=== PATIENT | female | born 1990 | race Caucasian/White ===

== ENCOUNTER → 2016-04-16 | Outpatient (CLI) | payer BC, OTHER ==
[2016-04-17 14:26] LABS: HIV SCRN NEGATIVE (NEGATIVE)
[2016-04-17 14:27] LABS: CONTROL LINE INT CTR LINE PRESENT; HIV SCRN1 NEGATIVE (NEGATIVE)
[2016-04-18 11:37] LABS: HBsAg Prenatal NEGATIVE (NEGATIVE)
== END ==
LOC: M WUC 16:08
PROVIDERS: ATTEND Specialist
DX: Z34.81 Encounter for supervision of other normal pregnancy, first trimester (principal)

== ENCOUNTER → 2016-04-17 | Outpatient (REF) | payer OTHER, BC ==
[2016-04-17 20:59] LABS: BASO % 0.3 % (0.0-1.0); EOS % 0.4 % (0.0-3.0); LARGE UNSTAINED CELL # 0.2 K/mm3 (0.0-0.4); LARGE UNSTAINED CELL % 1.6 % (0.0-4.0); LYMPH % 28.1 % (24.0-44.0); MEAN CORPUSCULAR HEMOGLOBIN 26.9 pg (27.0-33.0); MEAN CORPUSCULAR HGB CONC 32.1 g/dl (32.0-36.5); MEAN CORPUSCULAR VOLUME 83.7 fl (80.0-96.0); MONO # 0.5 K/mm3 (0.0-0.8); MONO % 4.9 % (0.0-5.0); NEUTROPHILS # 6.5 K/mm3 (1.8-7.7); NEUTROPHILS % 64.7 % (36.0-66.0); PLATELET COUNT, AUTOMATED 289 k/mm3 (150-450)
== END ==
LOC: M LABDRWAD 20:20 → M LABWUC 20:20
PROVIDERS: ATTEND Specialist
DX: Z34.81 Encounter for supervision of other normal pregnancy, first trimester (principal)

== ENCOUNTER → 2016-09-06 | Outpatient (CLI) | payer BC, OTHER ==
[~2016-09-06] MED LIST: ACET50TA PO; EFFE150C PO; FIOR1CAP PO; IBUP-1114 PO; LABE30TA PO; OXYC1TAB23 PO; PRENTAB9 PO; PROC10CA PO
[2016-09-06 18:59] LABS: BASO % 0.2 % (0.0-1.0); EOS % 0.4 % (0.0-3.0); LARGE UNSTAINED CELL # 0.1 K/mm3 (0.0-0.4); LARGE UNSTAINED CELL % 1.1 % (0.0-4.0); LYMPH # 2.1 K/mm3 (1.5-6.5); LYMPH % 18.3 % (24.0-44.0); MEAN CORPUSCULAR HEMOGLOBIN 26.1 pg (27.0-33.0); MEAN CORPUSCULAR HGB CONC 32.3 g/dl (32.0-36.5); MONO # 0.5 K/mm3 (0.0-0.8); MONO % 4.8 % (0.0-5.0); NEUTROPHILS # 8.1 K/mm3 (1.8-7.7); NEUTROPHILS % 75.3 % (36.0-66.0); PLATELET COUNT, AUTOMATED 321 k/mm3 (150-450); WHITE BLOOD COUNT 10.8 K/mm3 (4.0-10.0)
== END ==
LOC: M SMT 13:54
PROVIDERS: ATTEND Specialist
DX: Z34.82 Encounter for supervision of other normal pregnancy, second trimester (principal); Z36 Encounter for antenatal screening of mother; Z3A.00 Weeks of gestation of pregnancy not specified
CPT/HCPCS: 36415; 82950; 85025; 86850; 86900; 86901; J2790

== ENCOUNTER → 2016-11-16 | Outpatient (REF) | payer BC, OTHER | LOC: M LAB REF 13:15 | PROVIDERS: ATTEND Specialist | DX: Z34.83 Encounter for supervision of other normal pregnancy, third trimester (principal); Z36 Encounter for antenatal screening of mother; Z3A.00 Weeks of gestation of pregnancy not specified ==

== ENCOUNTER → 2016-11-29 | Outpatient (CLI) | payer BC, OTHER ==
[2016-11-29 19:36] LABS: ALT/SGPT 15 U/L (12-78); AST/SGOT 16 U/L (15-37); BILIRUBIN,TOTAL 0.2 MG/DL (0.2-1.0); GLOMERULAR FILTRATION RATE > 60.0 (>60); URIC ACID 4.7 MG/DL (2.6-6.0)
[2016-11-29 19:38] LABS: MEAN CORPUSCULAR HEMOGLOBIN 25.2 pg (27.0-33.0); MEAN CORPUSCULAR HGB CONC 30.7 g/dl (32.0-36.5); MEAN CORPUSCULAR VOLUME 82.1 fl (80.0-96.0); RED CELL DISTRIBUTION WIDTH 19.3 % (11.5-14.5); WHITE BLOOD COUNT 9.5 10^3/uL (4.0-10.0)
== END ==
LOC: M SMT 14:37
PROVIDERS: ATTEND Advanced Practice Midwife
DX: O16.3 Unspecified maternal hypertension, third trimester (principal)

== ENCOUNTER 2016-11-30 10:25 | Inpatient (IN) | payer BC, OTHER ==
[2016-11-30] VITALS (31 sets, daily range): BP systolic 126–218; BP diastolic 61–109
[~2016-11-30] VITALS: Ht 160 cm; Wt 104.0 kg
[~2016-11-30 10:25] MED LIST changes: -ACET50TA PO; -EFFE150C PO; -FIOR1CAP PO; -IBUP-1114 PO; -LABE30TA PO; -OXYC1TAB23 PO; -PRENTAB9 PO; -PROC10CA PO; +VENLAFAXINE **XR** 75MG CAPSULE PO ONE
[2016-11-30 11:23] LABS: MEAN CORPUSCULAR HGB CONC 32.1 g/dl (32.0-36.5); MEAN CORPUSCULAR VOLUME 80.8 fl (80.0-96.0); WHITE BLOOD COUNT 8.6 10^3/uL (4.0-10.0)
[2016-11-30] MEDS: miSOPROStol 50 MCG 1/2 TAB (S0191) PO SCH ×2 (11:45→15:59)
--- NOTE | 2016-11-30 12:45 | HPE ---
DATE OF ADMISSION: 11/30/2016 25-year-old, (G) 1, para (P) 0 female at 38 and 0/7 weeks gestation by a 9 week ultrasound and expected date of confinement (EDC) of 12/14/2016, who presents from the office with a blood pressure of 172/88 today. She has mild blurry vision and headaches. She also has worsening swelling in her lower extremities, hands and face. She denies severe headaches however. COURSE: The patient initiated care at 9 weeks gestation, 05/14/2016. She had a first trimester blood pressure of 118/68. Weight was 174 pounds. course was unremarkable until the day prior to admission on 11/29/2016 when she had blood pressure of 144/88 and 3+ proteinuria. She was sent for labs and urine protein/creatinine (P/C) ratio. MEDICAL HISTORY: Abnormal Pap smears. SURGICAL HISTORY: Rhinoplasty. ALLERGIES: - SULFA - PENICILLIN SOCIAL HISTORY: The patient is . She denies cigarettes, alcohol or drug use. FAMILY HISTORY: Noncontributory. PHYSICAL EXAMINATION: Blood pressure 180/109. Pulse 104. She is afebrile. She is in no apparent distress. Head and Neck Exam: Normal. Lungs: Clear. Heart: Regular rate and rhythm. Abdomen: Nontender. Gravid. heart tones are Category 1. Contractions irregular. Sterile Vaginal Exam: 2 cm, 50% effaced, -2 station, vertex. Extremities: 2+ lower extremity edema. LABS: Blood type A negative rubella immune. RPR nonreactive. Hepatitis B and C negative. HIV negative. Diabetes screen 127. GBS negative on 11/16/2016. ASSESSMENT: 25-year-old, G1, P0, female at 38 and 0/7 weeks gestation with preeclampsia with severe features. PLAN: To admit for labor induction. Will initiate magnesium sulfate treatment during labor.
[2016-11-30] MEDS ORDERED: MAG Sulf (L&D) 4 GM/100 ML 4 GM in APPROPRIATE DILUENT 1 EA IV ONE (15:15)
[2016-11-30] MEDS ORDERED: LR 1,000 ML IV SCH (16:48)
[2016-11-30] MEDS: MAG Sulf (OBGYN) 20GM/500ML 20,000 MG in APPROPRIATE DILUENT 1 EA IV SCH (18:14)
[2016-11-30] MEDS ORDERED: OXYTOCIN DRIP 30 UNITS in APPROPRIATE DILUENT 1 EA IV SCH (20:30)
[2016-11-30] MEDS: ACETAMINOPHEN 500 MG TAB PO PRN (22:35)
[2016-12-01] VITALS (79 sets, daily range): BP systolic 102–180; BP diastolic 36–98
[2016-12-01] MEDS ORDERED: VENLAFAXINE **XR** 75MG CAPSULE PO ONE
[2016-12-01] MEDS: MAG Sulf (OBGYN) 20GM/500ML 20,000 MG in APPROPRIATE DILUENT 1 EA IV SCH ×2 (01:40→19:02)
[2016-12-01 04:41] LABS: MEAN CORPUSCULAR HEMOGLOBIN 25.2 pg (27.0-33.0); MEAN CORPUSCULAR HGB CONC 30.8 g/dl (32.0-36.5); MEAN CORPUSCULAR VOLUME 81.9 fl (80.0-96.0); RED CELL DISTRIBUTION WIDTH 19.2 % (11.5-14.5); WHITE BLOOD COUNT 10.7 10^3/uL (4.0-10.0)
[2016-12-01] MEDS ORDERED: FENTANYL 2MCG/ML ROPIVACAINE 0.2% IN 0.9% NACL 200ML IVBAG As Ordered ONE (04:55)
[2016-12-01] MEDS ORDERED: ePHEDrine SULFATE 25 MG/5 ML(5MG/ML) SYRINGE As Ordered ONE (05:41)
[2016-12-01] MEDS ORDERED: ePHEDrine SULFATE 25 MG/5 ML(5MG/ML) SYRINGE IV PRN (08:00)
[2016-12-01] MEDS ORDERED: diphenhydrAMINE INJ 50MG/ML VIAL (J1200) IV PRN (08:00)
[2016-12-01] MEDS ORDERED: NALOXONE INJ 0.4 MG/1 ML VIAL (J2310) IV PRN ×3 (08:00→15:00)
[2016-12-01] MEDS ORDERED: EPIDURAL/PCA KEYS XX PRN (08:00)
[2016-12-01] MEDS ORDERED: LACTATED RINGER'S 1000 ML IV PRN (08:00)
[2016-12-01] MEDS ORDERED: ONDANSETRON 4MG/2ML VIAL (J2405) IV PRN ×4 (08:00→16:00)
[2016-12-01] MEDS ORDERED: FENTANYL/ROPIVACAINE/NACL BAG 200 ML EPIDURAL SCH (08:00)
[2016-12-01] MEDS ORDERED: EPIDURAL COMMENT XX SCH (08:00)
[2016-12-01] MEDS ORDERED: REFRIGERATOR IV KEYS XX PRN (08:00)
[2016-12-01] MEDS ORDERED: CALCIUM CARBONATE 500 MG CHEW U/D PO PRN (10:00)
[2016-12-01] MEDS: ACETAMINOPHEN 500 MG TAB PO PRN (11:17)
[2016-12-01] MEDS ORDERED: BICITRA 30ML SOLN UDC As Ordered ONE (13:28)
[2016-12-01] MEDS ORDERED: ceFAZolin 2 GM/D5W 50 ML IV BAG (J0690) As Ordered ONE (13:28)
[2016-12-01] MEDS ORDERED: OXYTOCIN INJ 10 UNITS/ML VIAL (J2590) As Ordered ONE (13:30)
[2016-12-01] MEDS ORDERED: LIDOCAINE 2% W/EPIN INJ 20ML **PRES FREE As Ordered ONE (13:32)
[2016-12-01] MEDS ORDERED: BICITRA 30ML SOLN UDC PO ONE (13:45)
[2016-12-01] MEDS ORDERED: MORPHINE PRES-FREE INJ 10 MG/10 ML VIAL (J2274) As Ordered ONE (14:43)
[2016-12-01] MEDS ORDERED: METOCLOPRAMIDE INJ 10MG/2ML VIAL (J2765) IV PRN (15:00)
[2016-12-01] MEDS ORDERED: DOCUSATE SODIUM 100 MG CAP PO PRN (15:30)
[2016-12-01] MEDS ORDERED: PERCOCET 5MG/325MG TAB PO PRN (15:30)
[2016-12-01] MEDS ORDERED: OXYTOCIN DRIP 30 UNITS in APPROPRIATE DILUENT 1 EA IV ONE (15:30)
[2016-12-01] MEDS ORDERED: RHOGAM 300 MCG (1500 IU) INJ (J2790) IM SCH (15:30)
[2016-12-01] MEDS ORDERED: MEASLES,MUMPS,RUBELLA VACCINE INJ (MMR-II) (90707) SC SCH (15:30)
[2016-12-01] MEDS ORDERED: KETOROLAC 30 MG/ML VIAL (J1885) IV PRN (16:00)
[2016-12-01] MEDS ORDERED: NALBUPHINE HCL 10 MG/ML AMP (J2300) IV PRN (16:00)
[2016-12-01] MEDS ORDERED: fentaNYL 100 MCG/2 ML INJECTION (J3010) IV PRN (16:00)
[2016-12-01] MEDS ORDERED: MEPERIDINE INJ 25 MG/ML VIAL (J2175) IV PRN (16:00)
[2016-12-01] MEDS ORDERED: PERCOCET 5MG/325MG TAB As Ordered ONE (16:25)
[2016-12-01] MEDS: PERCOCET 5MG/325MG TAB PO PRN (16:25)
[2016-12-01] MEDS ORDERED: LABETALOL HCL 100 MG/20 ML VIAL IV STA (18:01)
[2016-12-01] MEDS: LR 1,000 ML IV SCH (19:03)
[2016-12-01] MEDS: NALBUPHINE HCL 10 MG/ML AMP (J2300) IV PRN ×2 (20:02→23:35)
[2016-12-01] MEDS: KETOROLAC 30 MG/ML VIAL (J1885) IV SCH (22:28)
[2016-12-02] VITALS (16 sets, daily range): BP systolic 126–175; BP diastolic 72–101
[2016-12-02] MEDS: KETOROLAC 30 MG/ML VIAL (J1885) IV SCH ×3 (03:53→15:09)
[2016-12-02] MEDS: NALBUPHINE HCL 10 MG/ML AMP (J2300) IV PRN (03:53)
[2016-12-02] MEDS: MAG Sulf (OBGYN) 20GM/500ML 20,000 MG in APPROPRIATE DILUENT 1 EA IV SCH ×2 (03:55→13:56)
[2016-12-02] MEDS: LR 1,000 ML IV SCH (04:08)
[2016-12-02 06:54] LABS: MEAN CORPUSCULAR HGB CONC 31.6 g/dl (32.0-36.5); MEAN CORPUSCULAR VOLUME 82.2 fl (80.0-96.0); RED CELL DISTRIBUTION WIDTH 19.7 % (11.5-14.5); WHITE BLOOD COUNT 10.6 10^3/uL (4.0-10.0)
[2016-12-02] MEDS: LABETALOL 200 MG TAB PO SCH ×2 (09:00→21:11)
[2016-12-02] MEDS: PERCOCET 5MG/325MG TAB PO PRN (09:02)
[2016-12-02] MEDS: PRENATAL VITAMINS CHEWABLE TABLET PO SCH (09:02)
[2016-12-02] MEDS: VENLAFAXINE **XR** 75MG CAPSULE PO SCH (09:02)
--- NOTE | 2016-12-02 11:52 | RO ---
DATE OF PROCEDURE: 11/30/2016 PREPROCEDURE DIAGNOSES: Term , preeclampsia, arrest of descent. POSTPROCEDURE DIAGNOSES: Term , preeclampsia, arrest of descent. PROCEDURE: Primary low transverse section. SURGEON: Justin Obando MD PAYABLE REPRESENTATIVE: Sybil Kaur MD ANESTHESIA: Epidural. ESTIMATED BLOOD LOSS: 500 mL. URINE OUTPUT: 100 mL. FINDINGS: 3280 gram or 7 pound 4 ounce female , scores 8 and 9, direct occiput posterior position. Normal uterus, fallopian tubes and ovaries. OPERATIVE SUMMARY: The patient was taken to the operating room where epidural anesthesia was adequate. She was prepped and draped in the sterile fashion in the supine fashion. A Delgadillo catheter was already in place. A Pfannenstiel skin incision was made with the scalpel and carried through to the fascia. The fascia was nicked and extended. The fascia was dissected off the rectus muscles. The peritoneal cavity was entered. The bladder flap was created. A curvilinear incision was made in the lower uterine segment until lightly meconium stained fluid was noted. This was extended manually. The infant was delivered from the vertex position without difficulty. The cord was doubly clamped and cut. The was handed off to the awaiting airport maintenance chief. The placenta was expressed. The uterus was exteriorized and cleared of clots and debris. Uterine incision was closed with #0 Vicryl in a running locked fashion. A second imbricating layer of #0 Vicryl was placed. The uterus was placed back in the abdominal cavity. The peritoneum was closed with #2-0 Vicryl in a running fashion. The fascia was closed with #0 Vicryl in a running fashion. The deep layer was irrigated and closed with #2-0 chromic. Skin was closed with #4-0 Monocryl subcuticular sutures. Sponge, instrument and needle counts were correct.
[2016-12-02] MEDS: ACETAMINOPHEN 500 MG TAB PO PRN (17:40)
[2016-12-02] MEDS ORDERED: IBUPROFEN 800 MG TAB PO SCH (18:00)
[2016-12-02] MEDS ORDERED: OXYC1TAB23 PO (22:49)
[2016-12-03] VITALS (7 sets, daily range): BP systolic 136–172; BP diastolic 78–87
[2016-12-03] MEDS: IBUPROFEN 800 MG TAB PO SCH ×4 (01:07→23:13)
[2016-12-03] MEDS: PERCOCET 5MG/325MG TAB PO PRN (01:17)
[2016-12-03] MEDS: PRENATAL VITAMINS CHEWABLE TABLET PO SCH (09:17)
[2016-12-03] MEDS: LABETALOL 200 MG TAB PO SCH ×2 (09:18→20:12)
[2016-12-03] MEDS: VENLAFAXINE **XR** 75MG CAPSULE PO SCH (09:19)
[2016-12-04] VITALS (21 sets, daily range): BP systolic 130–198; BP diastolic 66–140
[2016-12-04] MEDS ORDERED: LABETALOL 100 MG TAB PO ONE (03:30)
[2016-12-04] MEDS ORDERED: NIFEdipine 10 MG CAP PO SCH (06:00)
[2016-12-04] MEDS: IBUPROFEN 800 MG TAB PO SCH ×2 (07:50→15:59)
[2016-12-04] MEDS: PRENATAL VITAMINS CHEWABLE TABLET PO SCH (07:52)
[2016-12-04] MEDS: VENLAFAXINE **XR** 75MG CAPSULE PO SCH (08:51)
[2016-12-04] MEDS: LABETALOL 200 MG TAB PO SCH (08:53)
[2016-12-04] MEDS: ACETAMINOPHEN 500 MG TAB PO PRN ×2 (09:13→21:02)
[2016-12-04] MEDS: NIFEdipine 10 MG CAP PO SCH ×2 (10:27→18:24)
[2016-12-04] MEDS ORDERED: hydrALAZINE INJ 20 MG/ML VIAL IV ONE (20:00)
[2016-12-04] MEDS: LABETALOL 100 MG TAB PO SCH (20:08)
[2016-12-05] MEDS: IBUPROFEN 800 MG TAB PO SCH ×2 (00:42→08:07)
[2016-12-05 02:35] VITALS: BP 145/80
[2016-12-05] MEDS: NIFEdipine 10 MG CAP PO SCH ×2 (02:38→10:04)
[2016-12-05 06:00] VITALS: BP 136/84
[2016-12-05 08:00] VITALS: BP 166/92
[2016-12-05] MEDS: VENLAFAXINE **XR** 75MG CAPSULE PO SCH (08:06)
[2016-12-05] MEDS: LABETALOL 100 MG TAB PO SCH (08:06)
[2016-12-05] MEDS: PRENATAL VITAMINS CHEWABLE TABLET PO SCH (08:06)
[2016-12-05 09:07] VITALS: BP 156/90
[2016-12-05] MEDS ORDERED: EFFE150C PO (09:35)
[2016-12-05] MEDS ORDERED: IBUP-1114 PO (09:35)
[2016-12-05] MEDS ORDERED: PROC10CA PO (09:35)
[2016-12-05] MEDS ORDERED: PRENTAB9 PO (09:35)
[2016-12-05] MEDS ORDERED: LABE30TA PO (09:36)
[2016-12-05] MEDS ORDERED: ACET50TA PO (09:36)
[2016-12-05 10:04] VITALS: BP 156/90
[2016-12-05] MEDS: ACETAMINOPHEN 500 MG TAB PO PRN (10:09)
[2016-12-05 10:23] VITALS: BP 159/96
== END 2016-12-05 11:50 | disposition home or self-care (01) | DRG 540 ==
LOC: M LDO 10:25 → M LDI 10:42 → M OBS 12-01 16:58
PROVIDERS: ADMIT Obstetrics & Gynecology; ATTEND Specialist
PROC: 10D00Z1 Extraction of Products of Conception, Low, Open Approach (ICD-10-PCS; principal; 2016-11-30)
PROC: 3E0P7GC Introduction of Other Therapeutic Substance into Female Reproductive, Via Natural or Artificial Opening (ICD-10-PCS; 2016-11-30)
DX: O14.14 Severe pre-eclampsia complicating childbirth (principal); O32.4XX0 Maternal care for high head at term, not applicable or unspecified; Z3A.38 38 weeks gestation of pregnancy; Z37.0 Single live birth

== ENCOUNTER 2016-12-07 15:07 | Outpatient (CLI) | payer BC, OTHER ==
[~2016-12-07] VITALS: Ht 162.6 cm; Wt 90.4 kg
[2016-12-07] VITALS (14 sets, daily range): BP systolic 125–145; BP diastolic 70–87
[~2016-12-07 15:07] MED LIST changes: +ACET50TA PO; +EFFE150C PO; +IBUP-1114 PO; +LABE30TA PO; +OXYC1TAB23 PO; +PRENTAB9 PO; +PROC10CA PO; -VENLAFAXINE **XR** 75MG CAPSULE PO ONE
[2016-12-07] MEDS ORDERED: IBUPROFEN 800 MG TAB PO SCH (16:15)
[2016-12-07] MEDS ORDERED: NIFEdipine 10 MG CAP PO SCH (16:15)
[2016-12-07 16:44] LABS: ALBUMIN 2.4 GM/DL (3.2-5.2); ALBUMIN/GLOBULIN RATIO 0.63 (1.00-1.93); ALKALINE PHOSPHATASE 117 U/L (45-117); ALT/SGPT 38 U/L (12-78); ANION GAP 6 MEQ/L (8-16); AST/SGOT 33 U/L (15-37); BILIRUBIN,TOTAL 0.3 MG/DL (0.2-1.0); BLOOD UREA NITROGEN 16 MG/DL (7-18); CALCIUM LEVEL 8.6 MG/DL (8.5-10.1); CARBON DIOXIDE LEVEL 27 MEQ/L (21-32); CHLORIDE LEVEL 107 MEQ/L (98-107); CREATININE FOR GFR 0.59 MG/DL (0.55-1.02); GLOMERULAR FILTRATION RATE > 60.0 (>60); GLUCOSE, FASTING 106 MG/DL (70-105); SODIUM LEVEL 140 MEQ/L (136-145); TOTAL PROTEIN 6.2 GM/DL (6.4-8.2); URIC ACID 5.6 MG/DL (2.6-6.0)
[2016-12-07 16:57] LABS: MEAN CORPUSCULAR HEMOGLOBIN 25.5 pg (27.0-33.0); MEAN CORPUSCULAR HGB CONC 30.8 g/dl (32.0-36.5); MEAN CORPUSCULAR VOLUME 82.8 fl (80.0-96.0); RED CELL DISTRIBUTION WIDTH 18.8 % (11.5-14.5); WHITE BLOOD COUNT 11.5 10^3/uL (4.0-10.0)
[2016-12-07] MEDS ORDERED: FIOR1CAP PO (20:29)
== END 2016-12-07 19:40 ==
LOC: M LDI 15:07 → UNDOADMIN 15:07 → M LDO 15:07 → UNDODISIN 19:40 → PREINTOOBSV 19:56 → PREOBSVTOIN 19:57
PROVIDERS: ATTEND Obstetrics & Gynecology
DX: O14.95 Unspecified pre-eclampsia, complicating the puerperium (principal); Z98.890 Other specified postprocedural states; Z88.0 Allergy status to penicillin; Z88.2 Allergy status to sulfonamides
CPT/HCPCS: 36415; 80053; 80307; 82570; 83615; 84156; 84550; 85027; G0480

== ENCOUNTER → 2017-04-17 | Outpatient (REF) | payer OTHER | LOC: M LAB REF 13:10 | DX: N39.0 Urinary tract infection, site not specified (principal) ==

== ENCOUNTER → 2017-04-25 | Outpatient (REF) | payer OTHER ==
[2017-04-25 20:15] LABS: CHLAMYDIA DNA AMPLIFICATION NEGATIVE (NEGATIVE); GC DNA AMPLIFICATION NEGATIVE (NEGATIVE)
== END ==
LOC: M LAB REF 16:56
DX: R87.610 Atypical squamous cells of undetermined significance on cytologic smear of cervix (ASC-US) (principal)
CPT/HCPCS: 87591

== ENCOUNTER → 2017-06-28 | Outpatient (REF) | payer OTHER | LOC: M LAB REF 15:58 | DX: R53.83 Other fatigue (principal); E55.9 Vitamin D deficiency, unspecified ==

== ENCOUNTER → 2017-10-26 | Outpatient (CLI) | payer BC, OTHER ==
[2017-10-29 10:16] LABS: TOTAL 25(OH) VITAMIN D 62.8 NG/ML (30.0-100.0)
== END ==
LOC: M WUC 12:15
DX: E55.9 Vitamin D deficiency, unspecified (principal)

== ENCOUNTER → 2018-02-03 | Outpatient (REF) | payer OTHER | LOC: M LAB REF 13:03 | DX: Z12.4 Encounter for screening for malignant neoplasm of cervix (principal) ==

== ENCOUNTER → 2018-07-09 | Outpatient (CLI) | payer BC, OTHER ==
[~2018-07-09] MED LIST changes: -ACET50TA PO; -EFFE150C PO; +EFFE150C2 PO; +FIOR1CAP PO; +LABE300T2 PO; -LABE30TA PO; +MAPA500T2 PO
--- NOTE | 2018-07-10 02:59 | REP ---
Clinical: Coccyx pain. Technique: Three views of the sacrum and coccyx. Findings: Sacrum and coccyx appear intact and relatively normal. No obvious acute fracture or subluxation. Impression: No obvious acute injury. Electronically Signed by Lc Weber MD 07/10/2018 02:51 A
== END ==
LOC: M WUC 16:41
PROVIDERS: ATTEND Family Medicine
DX: M53.3 Sacrococcygeal disorders, not elsewhere classified (principal)

== ENCOUNTER → 2018-11-19 | Outpatient (CLI) | payer OTHER, BC ==
[2018-11-19 13:40] LABS: URINE PREG TEST NEGATIVE (NEGATIVE)
== END ==
LOC: M WUC 09:35
PROVIDERS: ATTEND Physician Assistant Medical
DX: E55.9 Vitamin D deficiency, unspecified (principal); N91.2 Amenorrhea, unspecified

== ENCOUNTER → 2018-12-05 | Outpatient (CLI) | payer OTHER, BC ==
[2018-12-05 11:56] LABS: BASO % 0.3 % (0.0-1.0); HEMATOCRIT 41.6 % (36.0-47.0); HEMOGLOBIN 13.2 g/dl (12.0-15.5); LYMPH # 1.9 10^3/uL (1.5-5.0); MEAN CORPUSCULAR HEMOGLOBIN 27.4 pg (27.0-33.0); MEAN CORPUSCULAR HGB CONC 31.7 g/dl (32.0-36.5); MEAN CORPUSCULAR VOLUME 86.5 fl (80.0-96.0); MONO # 0.5 10^3/uL (0.0-0.8); MONO % 7.6 % (0.0-5.0); NEUTROPHILS # 3.7 10^3/uL (1.5-8.5); NEUTROPHILS % 60.8 % (36.0-66.0); PLATELET COUNT, AUTOMATED 260 10^3/uL (150-450); RED BLOOD COUNT 4.81 10^6/uL (4.00-5.40); WHITE BLOOD COUNT 6.1 10^3/uL (4.0-10.0)
[2018-12-05 12:29] LABS: HEMOGLOBIN A1c 4.9 %
[2018-12-05 12:34] LABS: ALBUMIN 3.9 GM/DL (3.2-5.2); ALT/SGPT 44 U/L (12-78); BILIRUBIN,TOTAL 0.7 MG/DL (0.2-1.0); BLOOD UREA NITROGEN 14 MG/DL (7-18); CALCIUM LEVEL 9.2 MG/DL (8.5-10.1); CARBON DIOXIDE LEVEL 30 MEQ/L (21-32); CHLORIDE LEVEL 106 MEQ/L (98-107); CREATININE FOR GFR 0.63 MG/DL (0.55-1.30); FREE T4 0.79 NG/DL (0.76-1.46); GLOMERULAR FILTRATION RATE > 60.0 (>60); GLUCOSE, FASTING 98 MG/DL (70-100); POTASSIUM SERUM 5.1 MEQ/L (3.5-5.1); SODIUM LEVEL 140 MEQ/L (136-145); TOTAL PROTEIN 7.6 GM/DL (6.4-8.2)
== END ==
LOC: M WUC 09:03
PROVIDERS: ATTEND Physician Assistant
DX: Z13.29 Encounter for screening for other suspected endocrine disorder (principal)

== ENCOUNTER → 2019-05-27 | Outpatient (REF) | payer OTHER ==
[2019-05-27 13:24] LABS: HEMATOCRIT 41.9 % (36.0-47.0); HEMOGLOBIN 13.3 g/dl (12.0-15.5); MEAN CORPUSCULAR HGB CONC 31.7 g/dl (32.0-36.5); MEAN CORPUSCULAR VOLUME 85.2 fl (80.0-96.0); PLATELET COUNT, AUTOMATED 323 10^3/uL (150-450); RED BLOOD COUNT 4.92 10^6/uL (4.00-5.40)
[2019-05-27 14:20] LABS: HEPATITIS B SURFACE ANTIGEN NEGATIVE (NEGATIVE); HEPATITIS C VIRUS ABY INDEX 0.1 INDEX (<0.8); HIV 1&2 SCREEN CENTAUR NEGATIVE (NEGATIVE); RUBELLA IgG QUALITATIVE IMMUNE (IMMUNE)
[2019-05-27 15:10] LABS: CHLAMYDIA DNA AMPLIFICATION NEGATIVE (NEGATIVE); GC DNA AMPLIFICATION NEGATIVE (NEGATIVE)
== END ==
LOC: M PLALAB 11:36
PROVIDERS: ATTEND Specialist
DX: Z00.00 Encounter for general adult medical examination without abnormal findings (principal)

== ENCOUNTER → 2019-06-03 | Outpatient (REF) | payer OTHER | LOC: M SFHCWAGY 18:45 | PROVIDERS: ATTEND Specialist | DX: O03.30 Unspecified complication following incomplete spontaneous abortion (principal) ==

== ENCOUNTER → 2019-06-03 | Outpatient (REF) | payer OTHER | LOC: M PLALAB 11:17 | PROVIDERS: ATTEND Specialist | DX: Z34.01 Encounter for supervision of normal first pregnancy, first trimester (principal) | CPT/HCPCS: 36415; 86850; J2790 ==

== ENCOUNTER → 2019-08-14 | Outpatient (CLI) | payer OTHER ==
[~2019-08-14] MED LIST changes: +ASPI81TA26 PO; +BUTACAP78 PO; +COEN100T PO; +D31000TA2 PO; +GNP250TA9 PO; +NITR1CAP27 PO; +VENL37TA PO; +VITA25TA3 PO
[2019-08-14 10:36] LABS: BASO % 0.3 % (0.0-1.0); HEMATOCRIT 40.1 % (36.0-47.0); HEMOGLOBIN 12.3 g/dl (12.0-15.5); LYMPH # 1.9 10^3/uL (1.5-5.0); LYMPH % 26.5 % (24.0-44.0); MEAN CORPUSCULAR HEMOGLOBIN 25.2 pg (27.0-33.0); MEAN CORPUSCULAR HGB CONC 30.7 g/dl (32.0-36.5); MEAN CORPUSCULAR VOLUME 82.2 fl (80.0-96.0); MONO # 0.3 10^3/uL (0.0-0.8); MONO % 4.7 % (0.0-5.0); NEUTROPHILS % 68.2 % (36.0-66.0); PLATELET COUNT, AUTOMATED 240 10^3/uL (150-450); RED BLOOD COUNT 4.88 10^6/uL (4.00-5.40); WHITE BLOOD COUNT 7.3 10^3/uL (4.0-10.0)
[2019-08-14 11:17] LABS: ALBUMIN 3.7 GM/DL (3.2-5.2); ALT/SGPT 28 U/L (12-78); BILIRUBIN,TOTAL 0.5 MG/DL (0.2-1.0); BLOOD UREA NITROGEN 13 MG/DL (7-18); CALCIUM LEVEL 9.4 MG/DL (8.5-10.1); CARBON DIOXIDE LEVEL 29 MEQ/L (21-32); CHLORIDE LEVEL 106 MEQ/L (98-107); CREATININE FOR GFR 0.68 MG/DL (0.55-1.30); GLOMERULAR FILTRATION RATE > 60.0 (>60); GLUCOSE, FASTING 104 MG/DL (70-100); POTASSIUM SERUM 4.5 MEQ/L (3.5-5.1); SODIUM LEVEL 139 MEQ/L (136-145); TOTAL PROTEIN 7.3 GM/DL (6.4-8.2)
[2019-08-14 18:21] LABS: TOTAL 25(OH) VITAMIN D 56.3 NG/ML (30.0-100.0)
[2019-08-14 18:22] LABS: FOLATE > 24.0 NG/ML; VITAMIN B12 LEVEL 627 PG/ML
== END ==
LOC: M WUC 08:39
PROVIDERS: ATTEND Physician Assistant Medical
DX: R53.83 Other fatigue (principal); F32.9 Major depressive disorder, single episode, unspecified; R51 Headache

== ENCOUNTER → 2019-10-02 | Outpatient (REF) | payer OTHER ==
[~2019-10-02] MED LIST changes: -ASPI81TA26 PO; -BUTACAP78 PO; -COEN100T PO; -D31000TA2 PO; -GNP250TA9 PO; -NITR1CAP27 PO; -VENL37TA PO; -VITA25TA3 PO
[2019-10-31 03:46] LABS: BASO % 0.2 % (0.0-1.0); EOS % 0.1 % (0.0-3.0); LYMPH # 2.5 10^3/uL (1.5-5.0); LYMPH % 22.7 % (24.0-44.0); MEAN CORPUSCULAR HEMOGLOBIN 25.1 pg (27.0-33.0); MEAN CORPUSCULAR HGB CONC 30.8 g/dl (32.0-36.5); MEAN CORPUSCULAR VOLUME 81.6 fl (80.0-96.0); MONO # 0.7 10^3/uL (0.0-0.8); MONO % 6.6 % (0.0-5.0); NEUTROPHILS # 7.6 10^3/uL (1.5-8.5); NEUTROPHILS % 70.1 % (36.0-66.0); PLATELET COUNT, AUTOMATED 333 10^3/uL (150-450); RED BLOOD COUNT 4.78 10^6/uL (4.00-5.40); WHITE BLOOD COUNT 10.9 10^3/uL (4.0-10.0)
[2019-11-14 14:40] LABS: CHLAMYDIA DNA AMPLIFICATION NEGATIVE (NEGATIVE); GC DNA AMPLIFICATION NEGATIVE (NEGATIVE)
[2019-11-16 20:15] LABS: HEPATITIS B SURFACE ANTIGEN NEGATIVE (NEGATIVE); HEPATITIS C VIRUS ABY INDEX 0.1 INDEX (<0.8); HIV 1&2 SCREEN CENTAUR NEGATIVE (NEGATIVE)
== END ==
LOC: M SFHCWAGY 07:02
PROVIDERS: ATTEND Specialist
DX: Z36.9 Encounter for antenatal screening, unspecified (principal)

== ENCOUNTER → 2019-10-27 | Outpatient (CLI) | payer OTHER | LOC: M PLALAB 15:25 | PROVIDERS: ATTEND Specialist | DX: Z13.79 Encounter for other screening for genetic and chromosomal anomalies (principal) ==

== ENCOUNTER → 2019-11-30 | Outpatient (CLI) | payer BC ==
--- NOTE | 2019-12-05 13:42 | REP ---
OBSTETRIC SONOGRAPHY HISTORY: Supervision of for anatomy. FINDINGS: Scanning through the gravid uterus demonstrates a single living intrauterine gestation in a cephalic lie. motion is observed and heart rate is recorded at 147 beats per minute. Amniotic fluid is subjectively normal. An anterior grade 1 placenta is seen without evidence of previa. Three vessel umbilical cord is seen. Closed cervical length is viewed transabdominally and measured at 3.1 cm. No abnormality is seen. Four chamber heart visualization was less than optimal due to position. The following additional anatomic structures are identified and felt to be unremarkable: cranium, cavum septum pellucidum, falx, cerebral ventricles and choroid plexus, cerebellum and cisterna magna, face and profile, nose and lips, left and right ventricular outflow tract views, diaphragm, left-sided stomach, kidneys and urinary bladder, spine, upper and lower extremities. BIOMETRY CHART: BPD 4.2 cm 18 weeks 5 days Head circumference 15.2 cm 18 weeks 1 day Abdominal circumference 12.3 cm 18 weeks 0 days Femur length 2.5 cm 17 weeks 4 days Humeral length 2.6 cm 18 weeks 2 days AC/HC ratio 1.24 Normal Cephalic index 0.78 Normal Estimated weight 212 g, 0 pounds 7 ounces 31st percentile for 18 weeks 1 day IMPRESSION: Single intrauterine gestation at 18 weeks 1 day by todays composite criteria. Estimated date of delivery (MARGARITA) by todays sonography 05/01/2020. Four chamber heart view less than optimally achieved due to position. No other evidence of abnormality. MTDD
== END ==
LOC: M WHC 09:57
PROVIDERS: ATTEND Specialist
DX: Z34.82 Encounter for supervision of other normal pregnancy, second trimester (principal); Z36.89 Encounter for other specified antenatal screening; Z3A.18 18 weeks gestation of pregnancy

== ENCOUNTER → 2019-12-21 | Outpatient (CLI) | payer BC ==
--- NOTE | 2019-12-23 07:23 | REP ---
INDICATION: F/U ANATOMY COMPARISON: 11/30/2019 TECHNIQUE: Transabdominal obstetrical ultrasound with color Doppler evaluation. FINDINGS: Examination demonstrates a single live intrauterine in transverse (head to maternal left) presentation. motion is identified by technologist. Placenta is noted anterior and grade 0 without evidence for placenta previa or abruption. Amniotic fluid volume is normal. Cervix measures 4.0 cm in length and appears closed.. Gestational age by LMP 21 weeks 0 days with MARGARITA 05/02/2020. Gestational age by current measurements 20 weeks 6 days with MARGARITA 05/03/2020. FHR equals 153 beats per minute. Estimated weight 386 grams (40thpercentile). Anatomical assessment demonstrates normal four-chamber heart/ventricular outflow tract. IMPRESSION: Single live intrauterine in transverse presentation demonstrating appropriate interval growth. In conjunction with prior examination anatomical assessment is complete and normal. <Electronically signed by Lc Weber > 12/23/19 0719
== END ==
LOC: M WHC 10:34
PROVIDERS: ATTEND Advanced Practice Midwife
DX: Z36.2 Encounter for other antenatal screening follow-up (principal); O34.211 Maternal care for low transverse scar from previous cesarean delivery; Z3A.20 20 weeks gestation of pregnancy

== ENCOUNTER → 2020-01-29 | Outpatient (REF) | payer OTHER ==
[~2020-01-29] MED LIST changes: +ASPI81TA26 PO; +BUTACAP78 PO; +COEN100T PO; +D31000TA2 PO; +GNP250TA9 PO; +NITR1CAP27 PO; +VENL37TA PO; +VITA25TA3 PO
[2020-01-29 17:11] LABS: HEMATOCRIT 34.7 % (36.0-47.0); HEMOGLOBIN 10.2 g/dl (12.0-15.5); MEAN CORPUSCULAR HEMOGLOBIN 24.7 pg (27.0-33.0); MEAN CORPUSCULAR HGB CONC 29.4 g/dl (32.0-36.5); PLATELET COUNT, AUTOMATED 324 10^3/uL (150-450); RED BLOOD COUNT 4.13 10^6/uL (4.00-5.40); WHITE BLOOD COUNT 12.9 10^3/uL (4.0-10.0)
== END ==
LOC: M PLALAB 14:01
PROVIDERS: ATTEND Specialist
DX: Z34.90 Encounter for supervision of normal pregnancy, unspecified, unspecified trimester (principal); Z3A.00 Weeks of gestation of pregnancy not specified
CPT/HCPCS: 36415; 82950; 85027; 86850; 86900; 86901; J2790

== ENCOUNTER 2020-03-01 09:56 | Outpatient (CLI) | payer BC, OTHER ==
[~2020-03-01] VITALS: Ht 167.6 cm; Wt 97.5 kg
[~2020-03-01 09:56] MED LIST changes: -ASPI81TA26 PO; -BUTACAP78 PO; -COEN100T PO; -D31000TA2 PO; -GNP250TA9 PO; -NITR1CAP27 PO; -VENL37TA PO; -VITA25TA3 PO
[2020-03-01] MEDS ORDERED: IRON SUCROSE 500 MG in NS 250 ML OVER 4 HRS IV ONE (10:30)
[2020-03-01 10:56] VITALS: BP 140/75
[2020-03-01 11:05] VITALS: BP 130/80
[2020-03-01 12:05] VITALS: BP 122/73
[2020-03-01 13:08] VITALS: BP 127/73
[2020-03-01 14:10] VITALS: BP 131/71
[2020-03-01 15:00] VITALS: BP 124/68
== END 2020-03-01 15:00 | disposition home or self-care (01) ==
LOC: M INFU 09:56
PROVIDERS: ATTEND Specialist
DX: D64.9 Anemia, unspecified (principal); Z88.0 Allergy status to penicillin; Z88.1 Allergy status to other antibiotic agents
CPT/HCPCS: 96365; 96366; J1756

== ENCOUNTER → 2020-04-08 | Outpatient (REF) | payer OTHER ==
[~2020-04-08] MED LIST changes: +ASPI81TA26 PO; +BUTACAP78 PO; +COEN100T PO; +D31000TA2 PO; +GNP250TA9 PO; +NITR1CAP27 PO; +VENL37TA PO; +VITA25TA3 PO
== END ==
LOC: M SFHCWAGY 16:45
PROVIDERS: ATTEND Specialist
DX: Z36.89 Encounter for other specified antenatal screening (principal)

== ENCOUNTER → 2020-04-13 | Outpatient (CLI) | payer OTHER | LOC: M LABSMTC 10:34 | PROVIDERS: ATTEND Anesthesiology | DX: Z01.812 Encounter for preprocedural laboratory examination (principal); Z20.822 Contact with and (suspected) exposure to COVID-19 ==

== ENCOUNTER 2020-04-18 05:31 | Inpatient (IN) | payer BC, OTHER ==
[2020-04-18] VITALS (9 sets, daily range): BP systolic 124–165; BP diastolic 73–96
[~2020-04-18] VITALS: Ht 165.1 cm; Wt 98.4 kg
--- OUTSIDE RECORDS SUMMARY | 2020-04-18 05:35 | CCD ---
Author Author [facility] Organization [facility] Address Unknown Phone Unavailable Care Team Providers Care Building Construction Professor Name Role Phone Justin Obando Unavailable PROBLEMS Type Condition ICD9-CM Code CAA74-MD Code Onset Dates Condition S tatus SNOMED Code Notes Problem Supervision of other normal Z34.80 Ac tive [id number] ALLERGIES Allergen (clinical drug ingredient) Drug/Non Drug Allergy do cumented on EMR Reaction Allergy Type Onset Date Status Sulfa Unknown Non Drug Allergy Active Penicillin Unknown Non Drug Allergy Active ENCOUNTERS from 1988 to 2020-03-25 Encounter Location Date Provider Diagnosis [facility] [address] [place] [phone] Feb, Justin Obando 34 weeks gestation o f Z3A.34 and Encounter for related examination in third trimester Z34.83 IMMUNIZATIONS Vaccine Route Administration Date Status RHo (D) Immune Globulin 300mcg/1.5mL (RhoGAM) IM Intramuscular D ec 2019 Administered RHo (D) Immune Globulin 300mcg/1.5mL (RhoGAM) IM Intramuscular A pril 2019 Administered TDAP 0.5mL (Boostrix) IM Intramuscular Feb 23, 2020 Administe red Influenza (6mo & up) Fluzone IM Intramuscular Dec 16, 2019 Ad ministered SOCIAL HISTORY Tobacco Use: Social History Observation Description Date Details (start date - stop date) Never Smoker Sex Assigned At : Social History Observation Description Sex Assigned At Unknown Alcohol Screening: Question Answer Notes Did you have a drink containing alcohol in the past year? No Points 0 Interpretation Negative Tobacco Use: Question Answer Notes Are you a: never smoker REASON FOR REFERRAL No Information VITAL SIGNS No information MEDICATIONS Medication SIG (Take, Route, Frequency, Duration) Notes Start Da te End Date Status Venlafaxine HCl ER 37.5 MG 1 capsule with food Orally Once a day Active Venlafaxine HCl ER 150 MG 1 tablet with food Orally Once a day Active Riboflavin 100 MG 1 capsule Orally Once a day Active Magnesium 250 MG 1 tablet with a meal Orally Once a day Active Melatonin 5 MG 1 tablet in the evening Orally Once a day Active Aspirin 81 81 MG 1 tablet Orally Once a day Active Vitamin D 50 MCG (1999 UT) 1 capsule Orally Once a day Active CoQ-10 150 MG 1 capsule with a meal Orally Once a day Active 28-0.8 MG 1 tablet Orally Once a day Active PROCEDURES No Information RESULTS No Results REASON FOR VISIT 2WK PN MEDICAL (GENERAL) HISTORY Type Description Date Medical History Depression Medical History Migraines Surgical History Rhinoplasty Surgical History Primary LTCS 11/30/2016 Hospitalization History Chiildbirth Goals Section No Information Health Concerns No Information MEDICAL EQUIPMENT No Information MENTAL STATUS No Information FUNCTIONAL STATUS No Information ASSESSMENTS Encounter Date Diagnosis Assessment Notes Treatment Notes Treatm ent Clinical Notes Feb, 34 weeks gestation of (ICD-10 - Z3A.34 ) Feb, Encounter for rela ophelia examination in third trimester (ICD-10 - Z34.83) PLAN OF TREATMENT Next Appt Details Provider Name:Justin Obando, 2020-04-06 02:00:00 PM, [address] [place] [address], [phone], Provider Name:Justin Obando, 2020-04-18 07:30:00 AM, [address] [place] [address], [phone], Provider Name:Shirley Lindsey, 2020-04-18 07:30:00 AM, [address] [place] [address], [phone], Provider Name:Justin Obando, 2020-05-02 11:40:00 AM, [address] [place] [address], [phone], Provider Name:Justin Obando 2020-06-14 11:40:00 AM, [address] [place] [address], [phone], Insurance Providers Payer Name Payer Address Payer Phone Insured Name Patient Relati onship to Insured Coverage Start Date Coverage End Date [facility] [address] [facility] [id number] HELIO PARNELL self
--- OUTSIDE RECORDS SUMMARY | 2020-04-18 05:35 | CCD ---
Author Author [facility] Organization [facility] Address Unknown Phone Unavailable Care Team Providers Care It Technical Support Specialist Name Role Phone Justin Obando Unavailable PROBLEMS Type Condition ICD9-CM Code PIA85-DO Code Onset Dates Condition S tatus SNOMED Code Notes Problem Supervision of other normal Z34.80 Ac tive [id number] ALLERGIES Allergen (clinical drug ingredient) Drug/Non Drug Allergy do cumented on EMR Reaction Allergy Type Onset Date Status Sulfa Unknown Non Drug Allergy Active Penicillin Unknown Non Drug Allergy Active ENCOUNTERS from 1988 to 2020-02-29 Encounter Location Date Provider Diagnosis [facility] [address] [place] [phone] Jan, Justin Obando 30 weeks gestation o f Z3A.30 ; Other mental disorders complicating , third trimester O99.343 ; Depression F32.9 ; Maternal care due to low transverse uterine scar from previous delivery O34.211 and Encounter for immunization Z23 IMMUNIZATIONS Vaccine Route Administration Date Status RHo [...] REASON FOR REFERRAL No Information VITAL SIGNS Weight 215.4 lbs Jan, Height 66 in Jan, BMI 34.76 kg/m2 Jan, Blood pressure systolic 126 mm Hg Jan, Blood pressure diastolic 68 mm Hg Jan, MEDICATIONS Medication SIG (Take, Route, Frequency, Duration) [...] a day Active Vitamin D 50 MCG (1999) 1 capsule Orally Once a day Active CoQ-10 150 MG 1 capsule with a meal Orally Once a day Active 28-0.8 MG 1 tablet Orally Once a day Active PROCEDURES from 1988 to 2020-02-29 Procedure Date Ordered Result Body Site Immunization: Boostrix 0.5mL IM (TDAP) 2020-02-23 N/A RESULTS No Results REASON FOR VISIT 4WK PN MEDICAL (GENERAL) HISTORY Type Description Date Medical History Depression Medical History Migraines Surgical History Rhinoplasty Surgical History Primary LTCS 11/30/2016 Hospitalization History Chiildbirth Goals Section No Information Health Concerns No Information MEDICAL EQUIPMENT No Information MENTAL STATUS No Information FUNCTIONAL STATUS No Information ASSESSMENTS Encounter Date Diagnosis Assessment Notes Treatment Notes Treatm ent Clinical Notes Jan, 30 weeks gestation of (ICD-10 - Z3A.30 ) Jan, Other mental disorders compl icating , third trimester (ICD-10 - O99.343) Jan, Depression (ICD-10 - F32.9) Jan, Maternal care due to low tra nsverse uterine scar from previous delivery (ICD-10 - O34.211) Jan, Encounter for immunization (ICD-10 - Z23) PLAN OF TREATMENT Next Appt Details Provider Name:Justin Obando 2020-03-08 01:20:00 PM, [address] [place], [phone], Provider Name:Justin Obando 2020-04-13 01:00:00 PM, [address] [place] [address], [phone], Provider Name:Justin Obando, 2020-04-26 07:30:00 AM, [address] [place] [address], [phone], Provider Name:Sudha Clements, 2020-04 07:30:00 AM, [address] [place] [address], [phone], Provider Name:Justin Obando, 2020-05-10 11:20:00 AM, [address] [place] [address], [phone], Provider Name:Justin Obando, 2020-06-21 11:20:00 AM, [address] [place] [address], [phone], Insurance Providers Payer Name Payer Address Payer Phone Insured Name Patient Relati onship to Insured Coverage Start Date Coverage End Date [facility] [address] [facility] [id number] HELIO PARNELL self
--- OUTSIDE RECORDS SUMMARY | 2020-04-18 05:35 | CCD | Continuity of Care Document ---
Author Author [facility]quita CARLSON P.A.-C. Organization Unknown Address [address] [place] [address] Phone [phone] Care Team Providers Care Principal Biostatistician Name Role Phone Yoly Breaux DO AUTM Edwina Bowie AUTM [phone] Problems Description No Information Available Social History Type Date Description Comments Sex Unknown Tobacco Use Start: Unknown Patient has never smoked Tobacco Use Start: Unknown She drinks alcohol socially. Allergies, Adverse Reactions, Alerts Active Allergies Reaction Severity Comments Date Sulfa Antibiotics 08/10/2010 Penicillin 08/10/2010 Wellbutrin increased anxiety 08/06/2018 Medications Active Medications SIG Qnty Indications Ordering Provide r Date Venlafaxine HCL ER 37.5mg Caps ER 24HR 1 by mouth daily with 150 mg dose 30caps G43.709 Mirella Edward 08/13/2019 Venlafaxine HCL ER 150mg Tablets E R 24HR 1 po daily 30tabs F32.89 Meseret Fournier M.D. 08/06/2018 Immunizations Description No Information Available Vital Signs Date Vital Result Comment 12/14/2019 5:37am BP Systolic 110 mmHg BP Diastolic 70 mmHg Heart Rate 96 /min Respiratory Rate 20 /min 05/12/2019 7:15am BP Systolic 110 mmHg BP Diastolic 60 mmHg Heart Rate 88 /min Respiratory Rate 16 /min Results Description No Information Available Procedures Description No Information Available Medical Devices Description No Information Available Encounters Type Date Location Provider Dx Diagnosis Office Visit 12/14/2019 11:15a Main office - [place] Marry connell P.A.-C. 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 03/15/2020 M54.81 Occipital neuralgia Marry connell, P.A.-C. 03/15/2020 G44.219 Episodic tension-type headache, not intractable Marry Carlson, P.A.-C. 03/15/2020 M54.2 Cervicalgia Marry Carlson, P.A.-C. 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 03/15/2020 F32.89 Other specified depressive episo anna Marry Carlson, P.A.-C. 03/15/2020 F41.1 Generalized anxiety disorder Mary Carlson, P.A.-C. 12/14/2019 G44.219 Episodic tension-type headache, not intractable Marry Carlson, P.A.-C. 12/14/2019 G43.709 Chronic migraine wit hout aura, not intractable, without status migrainosus Marry Carlson, P.A.-C. 12/14/2019 M54.81 Occipital neuralgia Marry connell, P.A.-C. 12/14/2019 M54.2 Cervicalgia Marry Carlson, P.A.-C. 12/14/2019 F41.1 Generalized anxiety disorder Mary Carlson, P.A.-C. 12/14/2019 F32.89 Other specified depressive episo anna Marry Carlson, P.A.-C. 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 Plan of Treatment No Information Available Functional Status Description No Information Available Mental Status Description No Information Available Referrals Refer to Dr Reason for Referral Status Appt Date Meseret Fournier M.D. Created [facility] [address] [place], [place] [id number] [phone]
--- OUTSIDE RECORDS SUMMARY | 2020-04-18 05:35 | CCD ---
Author Author [facility] Organization [facility] Address Unknown Phone Unavailable Care Team Providers Care Cooling Tower Technician Name Role Phone Justin Obando Unavailable PROBLEMS Type Condition ICD9-CM Code SRF52-PI Code Onset Dates Condition S tatus SNOMED Code Notes Problem Supervision of other normal Z34.80 Ac tive [id number] ALLERGIES Allergen (clinical drug ingredient) Drug/Non Drug Allergy do cumented on EMR Reaction Allergy Type Onset Date Status Sulfa Unknown Non Drug Allergy Active Penicillin Unknown Non Drug Allergy Active ENCOUNTERS from 1988 to 2020-02-03 Encounter Location Date Provider Diagnosis [facility] [address] [place] [phone] Dec, Justin Obando 24 weeks gestation o f Z3A.24 ; Maternal care due to low transverse uterine scar from previous delivery O34.211 ; Other mental disorders complicating , second trimester O99 .342 and Depression F32.9 IMMUNIZATIONS Vaccine Route Administration Date Status RHo (D) Immune Globulin 300mcg/1.5mL (RhoGAM) IM Intramuscular A pril 2019 Administered Influenza (6mo & up) Fluzone IM Intramuscular [...] FOR REFERRAL No Information VITAL SIGNS Weight 208 lbs Dec, Weight-kg 94.35 kg Dec, Height 66 in Dec, BMI 33.572 kg/m2 Dec, Blood pressure systolic 126 mm Hg Dec, Blood pressure diastolic 70 mm Hg Dec, MEDICATIONS Medication SIG (Take, Route, Frequency, Duration) Notes Start Da te End Date Status Venlafaxine HCl ER 150 MG 1 tablet with food Orally Once a day Active CoQ-10 150 MG 1 capsule with a meal Orally Once a day Active Venlafaxine HCl ER 37.5 MG 1 capsule with food Orally Once a day Active Vitamin D 50 MCG (2000 UT) 1 capsule Orally Once a day Active Riboflavin 100 MG 1 capsule Orally Once a day Active 28-0.8 MG 1 tablet Orally Once a day Active Melatonin 5 MG 1 tablet in the evening Orally Once a day Active Aspirin 81 81 MG 1 tablet Orally Once a day Active Magnesium 250 MG 1 tablet with a meal Orally Once a day Active PROCEDURES No Information RESULTS Component Value Reference Range Type and Screen (D Rh Antibody Screen) Reviewed date:02/08/2020 09:25:54 Interpretation: Performing Lab:[facility], [facility] [place] [address] , ,[place] [address] BLOOD TYPE A NEGATIVE AB SCREEN (INDIRECT BRIANA)VIS NEGATIVE CBC - Complete Blood Count Reviewed date:02/08/2020 09:25:51 Interpretation: Performing Lab:[facility], [facility] [place] [address] , ,[place] [address] WHITE BLOOD COUNT 12.9 4.0-10.0 RED BLOOD COUNT 4.13 4.00-5.40 HEMOGLOBIN 10.2 12.0-15.5 HEMATOCRIT 34.7 36.0-47.0 MEAN CORPUSCULAR VOLUME 84.0 80.0-96.0 MEAN CORPUSCULAR HEMOGLOBIN 24.7 27.0-33.0 MEAN CORPUSCULAR HGB CONC 29.4 32.0-36.5 RED CELL DISTRIBUTION WIDTH 14.3 11.5-14.5 PLATELET COUNT, AUTOMATED 324 150-450 Glucose Challenge Test 1 Hour Reviewed date:02/08/2020 09:25:57 Interpretation: Performing Lab:[facility], [facility] [place] [address] , ,[place] [address] GLUCOSE CHALLENGE TEST 1 HOUR 117 LESS THAN 140 RHOGAM Reviewed date:02/08/2020 09:26:01 Interpretation: Performing Lab:[facility], [facility], ,[place] [address] RHOGAM TRANSFUSED PRODUCT: RHOGAM COUNT: 1 REASON FOR VISIT 4 WK PN MEDICAL (GENERAL) HISTORY Type Description Date Medical History Depression Medical History Migraines Surgical History Rhinoplasty Surgical History Primary LTCS 11/30/2016 Hospitalization History Chiildbirth Goals Section No Information Health Concerns No Information MEDICAL EQUIPMENT No Information MENTAL STATUS No Information FUNCTIONAL STATUS No Information ASSESSMENTS Encounter Date Diagnosis Assessment Notes Treatment Notes Treatm ent Clinical Notes Dec, 24 weeks gestation of (ICD-10 - Z3A.24 ) Dec, Maternal care due to low tra nsverse uterine scar from previous delivery (ICD-10 - O34.211) Dec, Other mental disorders compl icating , second trimester (ICD-10 - O99.342) Dec, Depression (ICD-10 - F32.9) PLAN OF TREATMENT Treatment Notes Test Name Order Date CBC - Complete Blood Count 2020-02-03 AB SCREEN (INDIRECT BRIANA)GEL Antibody Screen 2020-01 Type and Screen (D Rh Antibody Screen) 2020-02-03 Glucose Challenge Test 1 Hour 2020-02-03 RHRHOGAM 2020-02-03 RHOGAM 2020-02-03 Next Appt Details Provider Name:Carmelina Cary, 2020-02-10 1 1:00:00 AM, [address] [place] [address], [phone], Provider Name:Justin Obando, 2020-04-13 01:00:00 PM, [address] [place] [address], [phone], Provider Name:Justin Obando, 2020-04-26 07:30:00 AM, [address] [place] [address], [phone], Provider Name:Sudha Clements, 2020-04 07:30:00 AM, [address] [place] [address], [phone], Provider Name:Justin Obando, 2020-05-10 11:20:00 AM, [address] [place], [phone], Provider Name:Justin Obando, 2020-06-21 11:20:00 AM, [address] [place], [phone], Insurance Providers Payer Name Payer Address Payer Phone Insured Name Patient Relati onship to Insured Coverage Start Date Coverage End Date [facility] [address] [facility] [id number] HELIO PARNELL self
--- OUTSIDE RECORDS SUMMARY | 2020-04-18 05:35 | CCD ---
Author Author [facility] Organization [facility] Address Unknown Phone Unavailable Care Team Providers Care Web Site Manager Name Role Phone ObandoJustin Unavailable PROBLEMS Type Condition ICD9-CM Code [id number] Code Onset Dates Condition S tatus W/U Status Risk SNOMED Code Notes Problem Supervision of other normal Z34.80 Ac tive confirm [id number] ALLERGIES Allergen (clinical drug ingredient) Drug/Non Drug Allergy do cumented on EMR Reaction Allergy Type Onset Date Status Sulfa Unknown Non Drug Allergy Active Penicillin Unknown Non Drug Allergy Active ENCOUNTERS from 1988 to 2020-04-09 Encounter Location Date Provider Diagnosis [facility] [address] [place] [id number] Mar, Justin Obando Encounter for superv ision of normal in multigravida in third trimester Z34.83 IMMUNIZATIONS Vaccine Route [...] FOR REFERRAL No Information VITAL SIGNS Weight 233 lbs 10 b, 2021 Weight-kg 105.69 kg Mar, Height 66 in Mar, BMI 37.607 kg/m2 Mar, Blood pressure systolic 144 mm Hg Mar, Blood pressure diastolic 82 mm Hg Mar, MEDICATIONS Medication SIG (Take, Route, Frequency, Duration) Notes Start Da te End Date Status Venlafaxine HCl ER 150 MG 1 tablet with food Orally Once a day Active Melatonin 5 MG 1 tablet in the evening Orally Once a day Active Riboflavin 100 MG 1 capsule Orally Once a day Active CoQ-10 150 MG 1 capsule with a meal Orally Once a day Active Venlafaxine HCl ER 37.5 MG 1 capsule with food Orally Once a day Active Vitamin D 50 MCG (1999) 1 capsule Orally Once a day Active 28-0.8 MG 1 tablet Orally Once a day Active Aspirin 81 81 MG 1 tablet Orally Once a day Active Magnesium 250 MG 1 tablet with a meal Orally Once a day Active PROCEDURES No Information RESULTS No Results REASON FOR VISIT 1WK PN & PRE OP SURG 04/26/20 MEDICAL (GENERAL) HISTORY Type Description Date Medical History Depression Medical History Migraines Surgical History Rhinoplasty Surgical History Primary LTCS 11/30/2016 Hospitalization History Chiildbirth Goals Section No Information Health Concerns No Information MEDICAL EQUIPMENT No Information MENTAL STATUS No Information FUNCTIONAL STATUS No Information ASSESSMENTS Encounter Date Diagnosis Assessment Notes Treatment Notes Treatm ent Clinical Notes Mar, Encounter for supervision of normal in multigravida in third trimester (ICD-10 - Z34.83) PLAN OF TREATMENT Treatment Notes Test Name Order Date GROUP B STREP CULTURE 2020-04-06 Next Appt Details Provider Name:Justin Obando, 2020-04-13 11:20:00 AM, [address] [place] [address], [phone], Provider Name:Justin Obando, 2020-04-18 07:30:00 AM, [address] [place] [address], [phone], Provider Name:Shirley Lindsey, 2020-04-18 07:30:00 AM, [address] [place] [address], [phone], Provider Name:Justin Obando, 2020-05-02 11:40:00 AM, [address] [place], [phone], Provider Name:Justin Obando, 2020-06-14 11:40:00 AM, [address] [place], [phone], Insurance Providers Payer Name Payer Address Payer Phone Insured Name Patient Relati onship to Insured Coverage Start Date Coverage End Date [facility] [address] [facility] [id number] HELIO PARNELL
--- OUTSIDE RECORDS SUMMARY | 2020-04-18 05:35 | CCD ---
Author Author [facility] Organization [facility] Address Unknown Phone Unavailable Care Team Providers Care Planing Machine Operator Name Role Phone Justin Obando Unavailable PROBLEMS Type Condition ICD9-CM Code [id number] Code Onset Dates Condition S tatus SNOMED Code Notes Problem Supervision of other normal Z34.80 Ac tive [id number] ALLERGIES Allergen (clinical drug ingredient) Drug/Non Drug Allergy do cumented on EMR Reaction Allergy Type Onset Date Status Sulfa Unknown Non Drug Allergy Active Penicillin Unknown Non Drug Allergy Active ENCOUNTERS from 1988 to 2020-03-16 Encounter Location Date Provider Diagnosis [facility] [address] [place] [phone] Feb, Justin Obando Encounter for matern al care for low transverse scar from previous delivery O34.211 ; Other mental disorders complicating , third trimester O99.343 ; Depression F32.9 and 32 weeks gestation of Z3A.32 IMMUNIZATIONS Vaccine Route Administration Date Status RHo [...] FOR REFERRAL No Information VITAL SIGNS Weight 217 lbs Feb, Blood pressure systolic 140 mm Hg Feb, Blood pressure diastolic 86 mm Hg Feb, MEDICATIONS Medication SIG (Take, Route, Frequency, Duration) [...] Information RESULTS No Results REASON FOR VISIT 2wk pn MEDICAL (GENERAL) HISTORY Type Description Date Medical History Depression Medical History Migraines Surgical History Rhinoplasty Surgical History Primary LTCS 11/30/2016 Hospitalization History Chiildbirth Goals Section No Information Health Concerns No Information MEDICAL EQUIPMENT No Information MENTAL STATUS No Information FUNCTIONAL STATUS No Information ASSESSMENTS Encounter Date Diagnosis Assessment Notes Treatment Notes Treatm ent Clinical Notes Feb, Encounter for maternal care for low transverse scar from previous delivery (ICD-10 - O34.211) Feb, Other mental disorders compl icating , third trimester (ICD-10 - O99.343) Feb, Depression (ICD-10 - F32.9) Feb, 32 weeks gestation of (ICD-10 - Z3A.32 ) PLAN OF TREATMENT Next Appt Details Provider Name:Justin Obando 2020-03-21 11:00:00 AM, [address] [place] [address], [phone], Provider Name:Justin Obando 2020-04-06 02:00:00 PM, [address] [place] [address], [phone], Provider Name:Justin Obando 2020-04-18 07:30:00 AM, [address] [place] [address], [phone], Provider Name:Shirley Lindsey, 2020-04-18 07:30:00 AM, [address] [place] [address], [phone], Provider Name:Justin Obando, 2020-05-02 11:40:00 AM, [address] [place] [address], [phone], Provider Name:Justin Obando, 2020-06-14 11:40:00 AM, [address] [place] [address], [phone], Insurance Providers Payer Name Payer Address Payer Phone Insured Name Patient Relati onship to Insured Coverage Start Date Coverage End Date [facility] [address] [facility] [id number] HELIO PARNELL
--- OUTSIDE RECORDS SUMMARY | 2020-04-18 05:35 | CCD | Continuity of Care Document ---
Author Author Laquita CARLSON P.A.-C. Organization Unknown Address [address] [place] [address] Phone [phone] Care Team Providers Care Time Broker Name Role Phone Yoly Breaux DO AUTM Edwina Bowie AUTM [phone] Problems Description No Information Available Social History [...] Date Location Provider Dx Diagnosis Office Visit 03/15/2020 9:15a Main office - [place] Marry connell P.A.-C. 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 G44.219 Episodic tension-type headache, [...] Carlson, P.A.-C. 03/15/2020 M54.81 Occipital neuralgia Marry connell P.A.-C. 03/15/2020 G44.219 Episodic tension-type headache, not intractable Marry Carlson, P.A.-C. 03/15/2020 M54.2 Cervicalgia Marry Carlson P.A.-C. 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 03/15/2020 F32.89 Other specified depressive episo anna Marry Carlson, P.A.-C. 03/15/2020 F41.1 Generalized anxiety disorder Mary Carlson, P.A.-C. 12/14/2019 G44.219 Episodic tension-type headache, not intractable Marry Carlson, P.A.-C. 12/14/2019 G43.709 Chronic migraine wit hout aura, not intractable, without status migrainosus Marry Carlson, P.A.-C. 12/14/2019 M54.81 Occipital neuralgia Sheri Ramires-C. 12/14/2019 M54.2 Cervicalgia Marry Carlson P.A.-C. 12/14/2019 F41.1 Generalized anxiety disorder Mary Carlson P.A.-C. 12/14/2019 F32.89 Other specified depressive episo anna Marry Calrson P.A.-C. 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 Plan of Treatment Future Appointment(s):* 06/01/2020 11:45 am - Marry Carlson P.A.-C. at Main office [facility] 03/15/2020 - Marry Carlson P.A.-C.* G43.709 Chronic migraine without aura, not intractable, without status migrainosus* Comments:* Controlled. * M54.81 Occipital neuralgia* Comments:* Controlled. * G44.219 Episodic tension-type headache, not intractable* Comments:* Continue Effexor XR. * M54.2 Cervicalgia* Comments:* Improved with day care attendant. 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 * F32.89 Other specified depressive episodes* Comments:* Stable. Continue Effexor XR. * F41.1 Generalized anxiety disorder* Comments:* Controlled. * Follow up:* 3 months Functional Status Description No Information Available Mental Status Description No Information Available Referrals Refer to Reason for Referral Status Appt Date Meseret Fournier M.D. Created [facility] [address] [place] [address] [phone]
--- OUTSIDE RECORDS SUMMARY | 2020-04-18 05:36 | CCD ---
Author Author [facility] Organization [facility] Address Unknown Phone Unavailable Care Team Providers Care Metal Buffer Name Role Phone Yasmany Carlson Unavailable Unavailable TrickeyYasmany Unavailable Unavailable TrickeyYasmany Unavailable Unavailable TrickeyYasmany Unavailable Unavailable TrickeyYasmany PA Unavailable Unavailable TrickeyYasmany Unavailable Unavailable TrickeyYasmany Unavailable Unavailable TrickeyYasmany Unavailable Unavailable TrickeyYasmany Unavailable Unavailable TrickeyYasmany Unavailable Unavailable TrickeyYasmany Unavailable Unavailable TrickeyYasmany PA Unavailable Unavailable Trickey J Marry PA Unavailable Unavailable TrickeyYasmany PA Unavailable Unavailable TrickeyYasmany PA Unavailable Unavailable Trickey, J Marry PA Unavailable Unavailable Trickey, J Marry PA Unavailable Unavailable Trickey, J Marry PA Unavailable Unavailable Trickey, J Marry PA Unavailable Unavailable Trickey, J Marry PA Unavailable Unavailable Trickey, J Marry PA Unavailable Unavailable Trickey, J Marry PA Unavailable Unavailable Trickey, J Marry PA Unavailable Unavailable Trickey, J Marry PA Unavailable Unavailable Trickey, J Marry PA Unavailable Unavailable Trickey, J Marry PA Unavailable Unavailable Trickey, J Mrary PA Unavailable Unavailable Trickey, J Marry PA Unavailable Unavailable Trickey, J Marry PA Unavailable Unavailable Trickey, J Marry PA Unavailable Unavailable Trickey, J Marry PA Unavailable Unavailable Trickey, J Marry PA Unavailable Unavailable Trickey, J Marry PA Unavailable Unavailable Trickey, J Marry PA Unavailable Unavailable Trickey, J Marry PA Unavailable Unavailable Trickey, J Marry PA Unavailable Unavailable Trickey, J Marry PA Unavailable Unavailable Trickey, J Marry PA Unavailable Unavailable Trickey, J Marry PA Unavailable Unavailable Trickey, J Marry PA Unavailable Unavailable Trickey, J Marry PA Unavailable Unavailable Trickey, J Marry PA Unavailable Unavailable Trickey, J Marry PA Unavailable Unavailable Trickey, J Marry PA Unavailable Unavailable Trickey, J Marry PA Unavailable Unavailable Trickey, J Marry PA Unavailable Unavailable Trickey, J Marry PA Unavailable Unavailable Trickey, J Marry PA Unavailable Unavailable WILLIE PUENTE MD Unavailable Unavailable WILLIE PUENTE MD Unavailable Unavailable WILLIE PUENTE MD Unavailable Unavailable WILLIE PUENTE MD Unavailable Unavailable WILLIE PUENTE MD Unavailable Unavailable WILLIE PUENTE MD Unavailable Unavailable WILLIE PUENTE MD Unavailable Unavailable WILLIE PUENTE MD Unavailable Unavailable WILLIE PUENTE MD Unavailable Unavailable WILLIE PUENTE MD Unavailable Unavailable WILLIE PUENTE MD Unavailable Unavailable WILLIE PUENTE MD Unavailable Unavailable TRAVIS-ANGELO, AUBREY DO Unavailable Unavailable TRAVIS-ANGELO, AUBREY DO Unavailable Unavailable TRAVIS-ANGELO, AUBREY DO Unavailable Unavailable TRAVIS-ANGELO, AUBREY DO Unavailable Unavailable TRAVIS-ANGELO, AUBREY DO Unavailable Unavailable TRAVIS-ANGELO, AUBREY DO Unavailable Unavailable TRAVIS-ANGELO, AUBREY DO Unavailable Unavailable TRAVIS-ANGELO, AUBREY DO Unavailable Unavailable TRAVIS-ANGELO, AUBREY DO Unavailable Unavailable TRAVIS-ANGELO, AUBREY DO Unavailable Unavailable TRAVIS-ANGELO, AUBREY DO Unavailable Unavailable TRAVIS-ANGELO, AUBREY DO Unavailable Unavailable TRAVIS-ANGELO, AUBREY DO Unavailable Unavailable TRAVIS-ANGELO, AUBREY DO Unavailable Unavailable TRAVIS-ANGELO, AUBREY DO Unavailable Unavailable TRAVIS-ANGELO, AUBREY DO Unavailable Unavailable TRAVIS-ANGELO, AUBREY DO Unavailable Unavailable TRAVIS-ANGELO, AUBREY DO Unavailable Unavailable TRAVIS-ANGELO, AUBREY DO Unavailable Unavailable TRAVIS-ANGELO, AUBREY DO Unavailable Unavailable TRAVIS-ANGELO, AUBREY DO Unavailable Unavailable TRAVIS-ANGELO, AUBREY DO Unavailable Unavailable TRAVIS-ANGELO, AUBREY DO Unavailable Unavailable TRAVIS-ANGELO, AUBREY DO Unavailable Unavailable TRAVIS-ANGELO, AUBREY DO Unavailable Unavailable TRAVIS-ANGELO, AUBREY DO Unavailable Unavailable TRAVIS-ANGELO, AUBREY DO Unavailable Unavailable TRAVIS-ANGELO, AUBREY DO Unavailable Unavailable TRAVIS-ANGELO, AUBREY DO Unavailable Unavailable TRAVIS-ANGELO, AUBREY DO Unavailable Unavailable TRAVIS-ANGELO, AUBREY DO Unavailable Unavailable TRAVIS-ANGELO, AUBREY DO Unavailable Unavailable TRAVIS-ANGELO, AUBREY DO Unavailable Unavailable TRAVIS-ANGELO, AUBREY DO Unavailable Unavailable TRAVIS-ANGELO, AUBREY DO Unavailable Unavailable TRAVIS-ANGELO, AUBREY DO Unavailable Unavailable TRAVIS-ANGELO, AUBREY DO Unavailable Unavailable TRAVIS-ANGELO, AUBREY DO Unavailable Unavailable TRAVIS-ANGELO, AUBREY DO Unavailable Unavailable TRAVIS-ANGELO, AUBREY DO Unavailable Unavailable TRAVIS-ANGELO, AUBREY DO Unavailable Unavailable TRAVIS-ANGELO, AUBREY DO Unavailable Unavailable TRAVIS-ANGELO, AUBREY DO Unavailable Unavailable TRAVIS-ANGELO, AUBREY DO Unavailable Unavailable TRAVIS-ANGELO, AUBREY DO Unavailable Unavailable TRAVIS-ANGEOL, AUBREY DO Unavailable Unavailable TRAVIS-ANGELO, AUBREY DO Unavailable Unavailable TRAVIS-ANGELO, AUBREY DO Unavailable Unavailable TRAVIS-ANGELO, AUBREY DO Unavailable Unavailable TRAVIS-ANGELO, AUBREY DO Unavailable Unavailable TRAVIS-ANGELO, AUBREY DO Unavailable Unavailable TRAVIS-ANGELO, AUBREY DO Unavailable Unavailable TRAVIS-ANGELO, AUBREY DO Unavailable Unavailable TRAVIS-ANGELO, AUBREY DO Unavailable Unavailable TRAVIS-ANGELO, AUBREY DO Unavailable Unavailable TRAVIS-ANGELO, AUBREY DO Unavailable Unavailable TRAVIS-ANGELO, AUBREY DO Unavailable Unavailable TRAVIS-ANGELO, AUBREY DO Unavailable Unavailable TRAVIS-ANGELO, AUBREY DO Unavailable Unavailable TRAVIS-ANGELO, AUBREY DO Unavailable Unavailable TRAVIS-ANGELO, AUBREY DO Unavailable Unavailable TRAVIS-ANGELO, AUBREY DO Unavailable Unavailable TRAVIS-ANGELO, AUBREY DO Unavailable Unavailable TRAVIS-ANGELO, AUBREY DO Unavailable Unavailable TRAVIS-ANGELO, AUBREY DO Unavailable Unavailable TRAVIS-ANGELO, AUBREY DO Unavailable Unavailable TRAVIS-ANGELO, AUBREY DO Unavailable Unavailable TRAVIS-ANGELO, AUBREY DO Unavailable Unavailable TRAVIS-ANGELO, AUBREY DO Unavailable Unavailable TRAVIS-ANGELO, AUBREY DO Unavailable Unavailable TRAVIS-ANGELO, AUBREY DO Unavailable Unavailable TRAVIS-ANGELO, AUBREY DO Unavailable Unavailable TRAVIS-ANGELO, AUBREY DO Unavailable Unavailable TRAVIS-ANGELO, AUBREY DO Unavailable Unavailable TRAVIS-ANGELO, AUBREY DO Unavailable Unavailable TRAVIS-ANGELO, AUBREY DO Unavailable Unavailable TRAVIS-ANGELO, AUBREY DO Unavailable Unavailable TRAVIS-ANGELO, AUBREY DO Unavailable Unavailable TRAVIS-ANGELO, AUBREY DO Unavailable Unavailable TRAVIS-ANGELO, AUBREY DO Unavailable Unavailable TRAVIS-ANGELO, AUBREY DO Unavailable Unavailable TRAVIS-ANGELO, AUBREY DO Unavailable Unavailable Re-disclosure Warning The records that you are about to access may contain information from federally-assisted alcohol or drug abuse programs. If such information is present, then the following federally mandated warning applies: This information has been disclosed to you from records protected by federal confidentiality rules (42 CFR part 2). The federal rules prohibit you from making any further disclosure of this information unless further disclosure is expressly permitted by the written consent of the person to whom it pertains or as otherwise permitted by 42 CFR part 2. A general authorization for the release of medical or other information is NOT sufficient for this purpose. The Federal rules restrict any use of the information to criminally investigate or prosecute any alcohol or drug abuse patient.The records that you are about to access may contain highly sensitive health information, the redisclosure of which is protected by Article 27-F of the [facility] Public Health law. If you continue you may have access to information: Regarding HIV / AIDS; Provided by facilities licensed or operated by the [facility] Office of Mental Health; or Provided by the [facility] Office for People With Developmental Disabilities. If such information is present, then the following [facility] mandated warning applies: This information has been disclosed to you from confidential records which are protected by state law. State law prohibits you from making any further disclosure of this information without the specific written consent of the person to whom it pertains, or as otherwise permitted by law. Any unauthorized further disclosure in violation of state law may result in a fine or halfway sentence or both. A general authorization for the release of medical or other information is NOT sufficient authorization for further disc losure. Allergies and Adverse Reactions Type Description Substance Reaction Status Data Source(s ) CLASS SULFA (sulfonamide) SULFA (sulfonamide) [facility] CLASS PCN (penicillin) PCN (penicillin) [facility] Sulfa Sulfa Sulfa Unknown Active eCW1 ([facility]) Penicillin Penicillin Penicillin Unknown Active eCW1 ([facility]) Sulfa Sulfa Sulfa Unknown Active eCW1 ([facility]) Penicillin Penicillin Penicillin Unknown Active eCW1 ([facility]) Sulfa Sulfa Sulfa Unknown Active eCW1 ([facility]) Penicillin Penicillin Penicillin Unknown Active eCW1 ([facility]) Sulfa Sulfa Sulfa Unknown Active eCW1 ([facility]) Penicillin Penicillin Penicillin Unknown Active eCW1 ([facility]) Family History Family Member Name Family Member Gender Family Member Status Date o f Status Description Data Source(s) Unknown Unknown Problem MEDENT ([facility]) Encounters Encounter Providers Location Date Indications Data Source(s ) (WC ESTOB) [facility] [address] [place] [address] 04/06/2020 12:00:00 AM EST eCW1 ([facility]) (OB TV) Telephone Encounter Visit [address] [place] [address] 03/21/2020 12:00:00 AM EST eCW1 ([facility]) Outpatient Attender: Marry [facility] n 03/15/2020 08:15:00 AM EST MEDENT ([facility] TUCKER Liu) (WC ESTOB) [facility] [address] [place] [address] 03/08/2020 12:00:00 AM EST eCW1 ([facility]) (WC ESTOB) [facility] [address] [place] [address] 02/23/2020 12:00:00 AM EST eCW1 ([facility]) (WC ESTOB) [facility] [address] [place] [address] 01/13/2020 12:00:00 AM EST eCW1 ([facility]) (WC ESTOB) enter Est OB [address] [place] [address] 12/16/2019 12:00:00 AM EDT eCW1 ([facility]) Outpatient Attender: Marry [facility] n 12/14/2019 11:15:00 AM EDT MEDENT ([facility] Jackie wei ) Emergency Attender: WILLIE PUENTE MDConsultant: AUBREY BRADLEY DO 09/17/2019 02:24:00 PM EDT - 09/17/2019 05:25:00 PM EDT [facility] Patient discharged. Unknown [address] [facility] [address] 09/17/2019 12:00:00 AM EDT eCW1 ([facility]) [facility] [address] [place] [address] 06/05/2019 12:00:00 AM EDT eCW1 ([facility]) [facility] [address] [place] [address] 06/03/2019 12:00:00 AM EDT eCW1 ([facility]) [facility] [address] [place] [address] 05/27/2019 12:00:00 AM EDT eCW1 ([facility]) Outpatient Attender: Marry [facility]U Main [facility] 05/12/2019 08:45:00 AM EDT MEDENT ([facility] TUCKER wei) Immunizations Vaccine Date Status Description Data Source(s) Tdap 02/23/2020 01:53:00 PM EST completed e CW1 ([facility]) Tdap 02/23/2020 01:53:00 PM EST completed e CW1 ([facility]) Tdap 02/23/2020 01:53:00 PM EST completed e CW1 ([facility]) Tdap 02/23/2020 01:53:00 PM EST completed e CW1 ([facility]) RHo (D) Immune Globulin 300mcg/1.5mL (RhoGAM) 02/10/2020 11: 11:00 AM EST completed eCW1 ([facility]) RHo (D) Immune Globulin 300mcg/1.5mL (RhoGAM) 02/10/2020 11: 11:00 AM EST completed eCW1 ([facility]) RHo (D) Immune Globulin 300mcg/1.5mL (RhoGAM) 02/10/2020 11: 11:00 AM EST completed eCW1 ([facility]) RHo (D) Immune Globulin 300mcg/1.5mL (RhoGAM) 02/10/2020 11: 11:00 AM EST completed eCW1 ([facility]) New in 2011. IIV4 12/16/2019 12:46:00 PM EDT completed eCW1 ([facility]) New in 2011. IIV4 12/16/2019 12:46:00 PM EDT completed eCW1 ([facility]) New in 2011. IIV4 12/16/2019 12:46:00 PM EDT completed eCW1 ([facility]) New in 2011. IIV4 12/16/2019 12:46:00 PM EDT completed eCW1 ([facility]) New in 2011. IIV4 12/16/2019 12:46:00 PM EDT completed eCW1 ([facility]) New in 2011. IIV4 12/16/2019 12:46:00 PM EDT completed eCW1 ([facility]) RHo (D) Immune Globulin 300mcg/1.5mL (RhoGAM) 06/05/2019 01: 25:00 PM EDT completed eCW1 ([facility]) RHo (D) Immune Globulin 300mcg/1.5mL (RhoGAM) 06/05/2019 10: 11:00 AM EDT completed eCW1 ([facility]) RHo (D) Immune Globulin 300mcg/1.5mL (RhoGAM) 06/05/2019 10: 11:00 AM EDT completed eCW1 ([facility]) RHo (D) Immune Globulin 300mcg/1.5mL (RhoGAM) 06/05/2019 10: 11:00 AM EDT completed eCW1 ([facility]) RHo (D) Immune Globulin 300mcg/1.5mL (RhoGAM) 06/05/2019 10: 11:00 AM EDT completed eCW1 ([facility]) RHo (D) Immune Globulin 300mcg/1.5mL (RhoGAM) 06/05/2019 10: 11:00 AM EDT completed eCW1 ([facility]) RHo (D) Immune Globulin 300mcg/1.5mL (RhoGAM) 06/05/2019 10: 11:00 AM EDT completed eCW1 ([facility]) RHo (D) Immune Globulin 300mcg/1.5mL (RhoGAM) 06/05/2019 10: 11:00 AM EDT completed eCW1 ([facility]) RHo (D) Immune Globulin 300mcg/1.5mL (RhoGAM) 06/05/2019 10: 11:00 AM EDT completed eCW1 ([facility]) Medications Medication Brand Name Start Date Product Form Dose Route Admi nistrative Instructions Pharmacy Instructions Status Indications Reaction Description Data Source(s) 24 HR venlafaxine 37.5 MG Extended Release Oral Capsule Venl afaxine HCL ER 08/13/2019 12:00:00 AM EDT ORAL active MEDENT ([facility]) Insurance Providers Payer name Policy type / Coverage type Policy ID Covered republican ID Covered republican's relationship to gallardo Policy Gallardo Plan Information BCBS EMPIRE CYNDEE DIV [id number] [facility] [id number] [facility] [id number] SP [id number] UN EMPIRE -PHYSICIAN [id number] 01 [id number] EMPIRE BLUE CROSS BLUE SHIELD -O/P [id number] 01 [id number] BLUE CROSS BLUE SHIELD -O/P [id number] 18 [id number] [facility] [id number] [place] Plan Medigap Part B [id number] Family Dependent [id number] [facility] U/W Commercial [id number] Self [id number] [employer] Commercial [id number] Family Dependent [id number] BC/[place] Commercial [id number] Self [id number] [employer] Commercial [id number] Family Dependent [id number] BC/[place] Commercial [id number] Self [id number] [facility] Health Maintenance Organization (HMO) [id number] Self [id number] WORKMENS COMP AND NO FAULT 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 [employer] Commercial [id number] Family Dependent [id number] BC/[place] Commercial [id number] Self [id number] BCBS EMPIRE CYNDEE DIV [id number] HU2 [id number] [employer] Commercial [id number] Family Dependent [id number] BC/[place] Commercial [id number] Self [id number] [employer] Commercial [id number] Family Dependent [id number] BC/[place] Commercial [id number] Self [id number] [employer] Commercial [id number] Family Dependent [id number] BC/[place] Commercial [id number] Self [id number] [place] Plan Commercial [id number] Family Dependent [id number] [facility] [place] Commercial [id number] Family Depende nt [id number] BCBS EMPIRE [place] DIV [id number] HU2 [id number] BCBS EMPIRE [place] DIV [id number] SP [id number] [place] PPO 302/307 [id number] SP [id number] [place] PPO 302/307 [id number] SP [id number] [place] PPO 302/307 [id number] SP [id number] [place] PPO 302/307 [id number] SP [id number] [place] PPO 302/307 [id number] SP [id number] [place] 305/805 [id number] [place] Plan Medigap Part B [id number] Family Dependent [id number] [employer] U/W Commercial [id number] Self [id number] [place] Plan Medigap Part B [id number] Family Dependent [id number] [facility] U/W Commercial [id number] Self [id number] [employer] U/W Commercial [id number] Self [id number] [employer] U/W Commercial [id number] Self [id number] [employer] Commercial [id number] Family Dependent [id number] BC/BS [place] Commercial [id number] Self [id number] SELF PAY ONLY United [employer] Commercial [id number] Family Dependent [id number] BC/BS [place] Commercial [id number] Self [id number] BCBS EMPIRE [place] DIV [id number] SP [id number] [employer] Commercial [id number] Family Dependent [id number] BC/BS [place] Commercial [id number] Self [id number] EMPIRE ([facility]) O [id number] P [id number] [employer] Commercial [id number] Family Dependent [id number] BC/[place] Commercial [id number] Self [id number] BCBS EMPIRE CYNDEE DIV [id number] SP [id number] [facility] [place] Health Maintenance Organization (HMO) Self [employer] BCBS Medigap Part B Self [employer] Commercial Family Dependent BC/BS [place] Commercial [id number] Self [id number] [employer] U/W Commercial Self [place] 305/805 [id number] FA2 [id number] [place] 305/805 [id number] FA2 [id number] BCBS [place] 304/804 [id number] [place] [id number] BCBS [place] PPO 302/307 [id number] SP [id number] BC/[place] Commercial Self BC/[place] Commercial Self [id number] Problems, Conditions, and Diagnoses Code Display Name Description Problem Type Effective Dates Data Source(s) Z34.80 care Supervision of other normal P roblem 12/11/2019 12:00:00 AM EDT eCW1 ([facility]) Z34.80 care Supervision of other normal P roblem 05/21/2019 12:00:00 AM EDT eCW1 ([facility]) Z34.80 care Supervision of other normal P roblem 05/21/2019 12:00:00 AM EDT eCW1 ([facility]) Z3A08 8 weeks gestation of 8 weeks gestation of pr egnancy Diagnosis 09/17/2019 02:24:00 PM EDT [facility] [id number] Other chest pain Other chest pain Diagnosis 09/17/2019 02 :24:00 PM EDT [facility] [id number] Anemia complicating , first tri mester Anemia complicating , first trimester Diagnosis 09/17/2019 02:24:00 PM EDT [facility] M940 Chondrocostal junction syndrome [Tietze] Chondrocostal junction syndrome [Tietze] Diagnosis 09/17/2019 02:24:00 PM EDT [facility] [id number] Other specified diseases and conditions complicating , childbirth and the puerperium Other specified diseases and conditions complicating , childbirth and the puerperium Diagnosis 09/17/2019 02:24:00 PM EDT [facility] [id number] Other specified related condit ions, first trimester Other specified related conditions, first trimester Diagnosis 09/17/2019 02:24:00 PM EDT [facility] Surgeries/Procedures Procedure Description Date Indications Data Source(s) Immunization: Boostrix 0.5mL IM (TDAP) 02/23/2020 12:0 0:00 AM EST eCW1 ([facility]) INFLUENZA VIRUS VACC SPLIT PRSRV FREE 3 YRS/> IM 12/15 12:00:00 AM EDT eCW1 ([facility]) RHO(D) IMMUNE GLOBULIN HUMAN FULL-DOSE IM 06/05/2019 1 2:00:00 AM EDT eCW1 ([facility]) THER/PROPH/DIAG INJ, SC/IM 06/05/2019 12:00:00 AM EDT eCW1 ([facility]) TX MISSED FIRST TRIMESTER SURGICAL 06/03/2019 12:00:00 AM EDT eCW1 ([facility]) US PREG UTERUS REAL TIME W/IMAGE DCMTN TRANSVAG 2019 12:00:00 AM EDT eCW1 ([facility]) OB Visit 05/27/2019 12:00:00 AM EDT e CW1 ([facility]) Results ID Date Data Source [id number] 04/13/2020 10:52:00 AM EST [facility] Name Value Range Interpretation Code Description Data Khalida rce(s) Supporting Document(s) SARS coronavirus 2 RNA Not Detected [facility] [place] This lab was ordered by [facility] and reported by [facility]. ID Date Data Source RHOGAM 01/29/2020 12:00:00 AM EST eCW1 ([facility]) Name Value Range Interpretation Code Description Data Khalida rce(s) Supporting Document(s) TRANSFUSED PRODUCT: RHOGAM CO UNT: 1 RHOGAM eCW1 ([facility]) ID Date Data Source Glucose Challenge Test 1 Hour 01/29/2020 12:00:00 AM EST eCW 1 ([facility]) Name Value Range Interpretation Code Description Data Khalida rce(s) Supporting Document(s) 117 LESS THAN 140 GLUCOSE CHALLENGE TEST 1 HOUR eCW1 ([facility]) ID Date Data Source CBC - Complete Blood Count 01/29/2020 12:00:00 AM EST eCW1 ( [facility]) Name Value Range Interpretation Code Description Data Khalida rce(s) Supporting Document(s) 12.9 4.0-10.0 WHITE BLOOD COUNT eCW1 ([facility]) 10.2 12.0-15.5 HEMOGLOBIN eCW1 ([facility]) 34.7 36.0-47.0 HEMATOCRIT eCW1 ([facility]) 4.13 4.00-5.40 RED BLOOD COUNT eCW1 ([facility]) 84.0 80.0-96.0 MEAN CORPUSCULAR VOLUME e CW1 ([facility]) 29.4 32.0-36.5 MEAN CORPUSCULAR HGB CONC eCW1 ([facility]) 14.3 11.5-14.5 RED CELL DISTRIBUTION WID TH eCW1 ([facility]) 324 150-450 PLATELET COUNT, AUTOMATED eCW1 ([facility]) 24.7 27.0-33.0 MEAN CORPUSCULAR HEMOGLOB IN eCW1 ([facility]) ID Date Data Source Type and Screen (D Rh Antibody Screen) 01/29/2020 12:00:00 A M EST eCW1 ([facility]) Name Value Range Interpretation Code Description Data Khalida rce(s) Supporting Document(s) A NEGATIVE BLOOD TYPE eCW1 ([facility]) NEGATIVE AB SCREEN (INDIRECT COOMB S)VIS eCW1 ([facility]) ID Date Data Source [facility] OBS FOLLOW UP OR REPEAT 12/23/2019 09:22:59 AM EDT eCW1 ([facility]) Name Value Range Interpretation Code Description Data Khalida rce(s) Supporting Document(s) [facility] OBS FOLLOW UP OR REPEAT e CW1 ([facility]) ID Date Data Source [id number] 09/17/2019 02:24:00 PM EDT [facility] 1 OrderSheet [facility] Emergency Department [address] [place] [address] Phone #: [phone] 09/17/2019 14:16 Patient: HELIO PARNELL Sex: F : 1990 Age: 28yWEIGHT:83.9 kg (S) HEIGHT:65 inches (S) BMI:30.8 STATUS:YesALLERGIES: Penicillins, Sulfa AntibioticsCHIEF COMPLAINT: chest painDIAGNOSIS: Chest pain, Costal chondritis, Anemia, Patient currently LAB ORDERSOrder Description Priority Entered Acknowledged InitialedC w Diff STAT 14:46 09/17/2019 15:00 Cindi Kapoor Lingappa Jennifer R.N. M.D.;CMP STAT 14:46 09/17/2019 15:00 Cindi Kapoor Lingappa Jennifer R.N. M.D.;Troponin-T STAT 14:46 09/17/2019 15:00 Cindi Kapoor Lingappa Jennifer R.N. M.D.;HCG Serum Quant STAT 14:46 09/17/2019 15:00 Cindi Kapoor Lingappa Jennifer R.N. M.D.;Urinalysis (Clean STAT 15:03 09/17/2019 15:03 Emelia,Catch) Juana Kapoor R.N., R.N.; Verbal order per; Willie Puente M.D.DIAGNOSTIC STUDY ORDERSOrder Description Priority Entered Acknowledged InitialedMEDIC ATION/IV/DRIP/FLUID ORDERSOrder Description Priority Entered Acknowledged InitialedGENERAL ORDERSOrder Description Priority Entered Acknowledged InitialedEKG 14:46 09/17/2019 15:00 Cindi Kapoor Lingappa Jennifer R.N. M.D.;Senior Application Software Engineer 14:46 09/17/2019 15:00 sean Kapoor) Willie Puente R.N. 2 OrderSheet [facility] Emergency Department [address] [place] [address] Phone #: ext- [phone] 09/17/2019 14:16 [id number] Sex: F : 1990 Age: 28y M.D.;[Electronically signed by Juana Kapoor R.N. (17:28 09/17/2019)][Electronically signed by Willie Puente M.D. (17:48 09/17/2019)][Electronically locked by Juana Kapoor R.N. (17:09/17/2019)] Name Value Range Interpretation Code Description Data Khalida rce(s) Supporting Document(s) ID Date Data Source [id number] 09/17/2019 02:24:00 PM EDT [facility] 1 Medication Reconciliation Report [facility] Emergency Department [address] [place] [address] Phone #: ext- [phone] 09/17/2019 14:16 Patient: HELIO PARNELL Sex: F : 1990 Age: 28yWeight: 83.9 kgHeight/Length: 65 in.BMI: 30.8ALLERGIES: Penicillins, Sulfa AntibioticsThe patient's Home Medications are listed below:THE FOLLOWING MEDICATIONS NEED TO BE RECONCILED: Nitrofurantoin Macrocrystal Oral (25 mg), after intercourse, prn Nitrofurantoin Oral Venlafaxine HCl ER Oral (37.5 mg) 1 tablet, daily Venlafaxine HCl ER Oral (150 mg) 1 tablet, dailyThe source(s) of the original Home Medication information:Not obtained.The following Medications were given to the patient in the Emergency Department:None.The following Medications were prescribed to the patient:Prenate Elite (iron asparto glycinate) 20 mg iron-1 mg tablet Take 1 tablet once a day as directed for 30days -- Dispense 30 tablet. Refills: 0. Substitution permitted.Pharmacy - [facility] [id number] ; [place] [address]. . -- Willie Puente M.D. Name Value Range Interpretation Code Description Data Khalida e(s) Supporting Document(s) ID Date Data Source [id number] 09/17/2019 02:24:00 PM EDT [facility] 1 Medication Administration Record [facility] Emergency Department [address] [place] [address] Phone #: ext- [phone] 09/17/2019 14:16 Patient: HELIO PARNELL Sex: F : 1990 Age: 28yWeight: 83.9 kgHeight/Length: 65 inBMI: 30.8ALLERGIES: Penicillins, Sulfa AntibioticsDate/Time Medication Administered Medication Ordered Name Value Range Interpretation Code Description Data [facility] Supporting Document(s) ID Date Data Source [id number] 09/17/2019 02:24:00 PM EDT [facility] 1 General Instructions [facility] Emergency Department [address] [place] [address] Phone #: ext- [phone] 09/17/2019 14:16 Patient: HELIO PARNELL Sex: F : 1990 Age: 28yChest pain.First trimester ; positive test in emergency department. Ultrasound was not performedto determine location because the pain was not related to and CP with normal vitals-reproducible chest wall pain.CostochondritisChronic iron deficiency anemia and hypochromic anemia.INSTRUCTIONSNo strenuous activity.(take vitamins, and iron supplements. f/u with pcp and also with your form builder helper for further care.Return if worsens or any symptoms.).Warnings: Further evaluation is necessary.GENERAL WARNINGS: Return or contact your physician immediately if your condition worsens orchanges unexpectedly, if not improving as expected, or if other problems arise.Prescription Medications:Prenate Elite (iron asparto glycinate) 20 mg iron-1 mg tablet Take 1 tablet once a day as directed for 30days -- Dispense 30 tablet. Refills: 0. Substitution permitted.Pharmacy - [facility] [id number] ; [place] [address]. .Follow-up:Follow up with your healthcare provider even if well. Call for an appointment. Reason for referral:evaluation and treatment. Summary of care provided to patient and follow-up provider via paper.Understanding of the discharge instructions verbalized by patient. ADDITIONAL INFORMATIONChest Wall Pain: Costochondritis 2 General Instructions [facility] Emergency Department [address] [place] [address] Phone #: ext- [phone] 09/17/2019 14:16 Patient: HELIO PARNLEL [facility]#: [id number] Sex: F : 1990 Age: 28yThe chest pain that you have had today is caused by costochondritis. This condition is caused by aninflammation of the cartilage joining your ribs to your breastbone. It is not caused by heart or lungproblems. Your healthcare team has made sure that the chest pain you feel is not from a lifethreatening cause of chest pain such as heart attack, collapsed lung, blood clot in the lung, tear in theaorta, or esophageal rupture. The inflammation may have been brought on by a blow to the chest,lifting heavy objects, intense exercise, or an illness that made you cough and sneeze a lot. It oftenoccurs during times of emotional stress. It can be painful, but it is not dangerous. It usually goes awayin 1 to 2 weeks. But it may happen again. Rarely, a more serious condition may cause symptomssimilar to costochondritis. That's why it's important to watch for the warning signs listed below.Home careFollow these guidelines when caring for yourself at home: If you feel that emotional stress is a cause of your condition, try to figure out the sources of that stress. It may not be obvious. Learn ways to deal with the stress in your life. This can include regular exercise, muscle relaxatio n, meditation, or simply taking time out for yourself. You may use acetaminophen, ibuprofen, or naproxen to control pain, unless another pain medicine was prescribed. If you have liver or kidney disease or ever had a stomach ulcer, talk with your healthcare provider before using these medicines. You can also help ease pain by using a hot, wet compress or heating pad. Use this with or without a medicated skin cream that helps relieves pain. Do stretching exercise as advised by your provider. Take any prescribed medicines as directed. 3 General Instructions [facility] Emergency Department [address] [place] [address] Phone #: ext- [phone] 09/17/2019 14:16 Patient: HELIO PARNELL Sex: F : 1990 Age: 28yFollow-up careFollow up with your healthcare provider, or as advised, if you do not start to get better in the next 2days.When to seek medical adviceCall your healthcare provider right away if any of these occur: A change in the type of pain. Call if it feels different, becomes more serious, lasts longer, or spreads into your shoulder, arm, neck, jaw, or back. Shortness of breath or pain gets worse when you breathe Weakness, dizziness, or fainting Cough with dark-colored sputum (phlegm) or blood Abdominal pain Dark red or black stools Fever of 100.4F (38C) or higher, or as directed by your healthcare provider [id number] [employer]. [address] [place] [address]. All rights reserved. This information is not intended as asubstitute for professional medical care. Always follow your healthcare professional's instructions.Chest Wall Pain: Costochondritis 4 General Instructions [facility] Emergency Department [address] [place] [address] Phone #: ext [phone] 09/17/2019 14:16 Patient: HELIO PARNELL Sex: F : 1990 Age: 28yThe chest pain that you have had today is caused by costochondritis. This condition is caused by aninflammation of the cartilage joining your ribs to your breastbone. It is not caused by heart or lungproblems. Your healthcare team has made sure that the chest pain you feel is not from a lifethreatening cause of chest pain such as heart attack, collapsed lung, blood clot in the lung, tear in theaorta, or esophageal rupture. The inflammation may have been brought on by a blow to the chest,lifting heavy objects, intense exercise, or an illness that made you cough and sneeze a lot. It oftenoccurs during times of emotional stress. It can be painful, but it is not dangerous. It usually goes awayin 1 to 2 weeks. But it may happen again. Rarely, a more serious condition may cause symptomssimilar to costochondritis. That's why it's important to watch for the warning signs listed below.Home careFollow these guidelines when caring for yourself at home: If you feel that emotional stress is a cause of your condition, try to figure out the sources of that stress. It may not be obvious. Learn ways to deal with the stress in your life. This can include regular exercise, muscle relaxation, meditation, or simply taking time out for yourself. You may use acetaminophen, ibuprofen, or naproxen to control pain, unless another pain medicine was prescribed. If you have liver or kidney disease or ever had a stomach ulcer, talk with your healthcare provider before using these medicines. You can also help ease pain by using a hot, wet compress or heating pad. Use this with or without a medicated skin cream that helps relieves pain. Do stretching exercise as advised by your provider. Take any prescribed medicines as directed.Follow-up careFollow up with your healthcare provider, or as advised, if you do not start to get better in the next 2days.When to seek medical adviceCall your healthcare provider right away if any of these occur: A change in the type of pain. Call if it feels different, becomes more serious, lasts longer, or spreads into your shoulder, arm, neck, jaw, or back. Shortness of breath or pain gets worse when you breathe Weakness, dizziness, or fainting Cough with dark-colored sputum (phlegm) or blood 5 General Instructions [facility] Emergency Department [address] [place] [address] Phone #: ext- [phone] 09/17/2019 14:16 Patient: HELIO PARNELL Sex: F : 1990 Age: 28y Abdominal pain Dark red or black stools Fever of 100.4F (38C) or higher, or as directed by your healthcare provider [phone] [employer]. [address] [place] [address]. All rights reserved. This information is not intended as asubstitute for professional medical care. Always follow your healthcare professional's instructions.Anemia, Type Not Specified (Adult)Red blood cells carry oxygen to the tissues of your body. Anemia is a condition in which you have toofew red blood cells. You need iron to make red blood cells. The most common cause of anemia is nothaving enough iron. This may be because of: Loss of blood. This can be caused by heavy menstrual periods. It can also be caused by bleeding from the stomach or intestines. Poor diet. You may not be eating enough foods that contain iron.Other causes of anemia include certain vitamin deficiencies, chronic kidney disease, and otherchronic illnesses.Anemia makes you feel tired and run down. When anemia becomes severe, your skin becomes pale .You may feel short of breath after physical activity. Other symptoms include: Headaches Dizziness Leg cramps with physical activity DrowsinessHome careFollow these guidelines when caring for yourself at home: Don't overexert yourself. Talk with your healthcare provider before traveling by air or traveling to high altitudes.Follow-up careFollow up with your healthcare provider, or as advised. You may need other blood tests to find out theexact cause of your anemia. If you had testing done today, it may take several days to get all of theresults. You can follow up with your own healthcare provider to get the results. 6 General Instructions [facility] Emergency Department [address] [place] [address] Phone #: ext- [phone] 09/17/2019 14:16 Patient: HELIO PARNELL Sex: F : 1990 Age: 28yCall 911Call 911 or get immediate medical care if any of the following occur: Shortness of breath or chest pain Dizziness or fainting gets worse Vomiting blood or passing red or black-colored stool [id number] [employer]. [address] [place] [address]. All rights reserved. This information is not intended as asubstitute for professional medical care. Always follow your healthcare professional's instructions.Iron-Deficiency Anemia (Adult)Red blood cells carry oxygen to the tissues of your body. Anemia is a condition in which you have toofew red blood cells. You need iron to make red cells. Anemia makes you feel tired and run down.When anemia becomes severe, your skin becomes pale. You may feel short of breath after physicalactivity. Other symptoms include: Headaches Dizziness Leg cramps with physical activity Drowsiness R estless legsYour anemia is caused by not having enough iron in your body. This may be because of: Loss of blood. This can be caused by heavy menstrual periods. It can also be caused by bleeding from the stomach or intestines. Poor diet. You may not be eating enough foods that contain iron. Inability to absorb iron from the foods you eat PregnancyIf your blood count is low enough, your healthcare provider may prescribe an iron supplement. Itusually takes about 2 to 3 months of treatment with iron supplements to correct anemia. Severecases of anemia need a blood transfusion to quickly ease symptoms and deliver more oxygen to thecells.Home careFollow these guidelines when caring for yourself at home: 7 General Instructions [facility] Emergency Department [address] [place] [address] Phone #: ext- [phone] 09/17/2019 14:16 Patient: HELIO PARNELL Sex: Mario : 1990 Age: 28y Eat foods high in iron. This will boost the amount of iron stored in your body. It is a natural way to build up the number of blood cells. Good sources of iron include beef, liver, spinach and other dark green leafy vegetables, whole grains, beans, and nuts. Don't overexert yourself. Talk with your healthcare provider before traveling by air or traveling to high altitudes.Follow-up careFollow up with your healthcare provider in 2 months, or as advised. This is to have another red bloodcell count to be sure your anemia has been fixed.Call [phone] [phone] or seek immediate medical care if any of these occur: Shortness of breath or chest pain Dizziness or fainting Vomiting blood or passing red or black-colored stool [phone] [employer]. [address] [place] [address]. All rights reserved. This information is not intended as asubstitute for professional medical care. Always follow your healthcare professional's instructions. You have been given the following additional information: Chest Wall Pain, Costochondritis Chest Wall Pain, Costochondritis Anemia, Type Not Specified (Adult) Anemia, Iron-Deficiency (Adult) No strenuous activity.(Electronically signed by Willie Puente M.D. 09/17/2019 17:48) Name Value Range Interpretation Code Description Data Khalida rce(s) Supporting Document(s) ID Date Data Source [id number] 09/17/2019 02:24:00 PM EDT [facility] 1 Clinical Report - Nurses [facility] Emergency Department [address] [place] [address] Phone #: ext- [phone] 09/17/2019 14:16 Patient: HELIO PARNELL Sex: F : 1990 Age: 28yTRIAGEArrived by private vehicle. Historian: patient.Acuity: LEVEL 3.Chief Complaint: CHEST PAIN and DISCOMFORT.Onset. (2 days ago). ( pt states yesterday she was lying in bed and suddenly developed chest pain, leftsided and radiates to her left shoulder, she is about 8 weeks gestation, denies abdominal pain or bleeding).Treatment PEDIATRIC SPEECH LANGUAGE PATHOLOGIST:Took Tylenol. (1300).SEPSIS SCREEN: SIRS Screen negative. Sepsis Screen negative. No suspected or confirmed signs ofinfection p resent.PORFIRIO COMA SCORE: 15- eyes open- spontaneous (4); best verbal response- oriented (5); bestmotor response- obeys commands (6). --14:09/17/19 Madi Botello RN14:09/17/19. BP: 139/83. MAP: 101. HR: 92. RR: 16. O2 saturation: 100%. Temp: 98.9 F (oral). Painlevel now: 08/04. --14:09/17/19 Madi Botello RN.Weight: 83.9 kg stated. Height/Length: 65 inches Per Patient. BMI: 30.8. --14:09/17/19 Madi Botello RN.MedicationsVenlafaxine HCl ER Oral (Tablet Extended Release 24 Hour 150 mg) 1 tablet, daily. --14:09/17/19Madi Botello RN Nitrofurantoin Oral. Venlafaxine HCl ER Oral (Tablet Extended Release 24 Hour 37.5 mg) 1 tablet, daily. --14:09/17/19Madi Botello RN Nitrofurantoin Macrocrystal Oral (Capsule 25 mg), as needed (after intercourse). --14:09/17/19 MISSY Samuel.AllergiesSulfa Antibiotics. --14:09/17/19 Madi Botello RNPenicillins. --14:09/17/19 Madi Botello RN.HistoryPAST MEDICAL HX: Immunizations: up-to-date. Last normal menstrual period- July 26. 3. Para1. Abortions 1. Confirmed . In 1st trimester. confirmed with home test. G 3. P 1. Ab1. 2 Clinical Report - Nurses [facility] Emergency Department [address] [place] [address] Phone #: ext- [phone] 09/17/2019 14:16 ------ Patient: HELIO PARNELL Sex: F : 1990 Age: 28y SOCIAL HX: Never smoker. No alcohol use or drug use. She was offered HIV testing but declined and hepatitis C testing but declined. She has not traveled outside the [place] Infectious disease exposure: No infectious disease exposure. The patient was not exposed to Coronavirus. SELF HARM ASSESSMENT: Self harm assessment was performed. The patient answered "no" to the question(s) "Have you recently felt down, depressed, or hopeless?", "Do you have thoughts of harming or killing yourself?", "Do you have a plan for harming or killing yourself?", "Have you recently had thoughts about harming or killing others?", "Do you have any dangerous items in your possession?", "Have you noticed less interest or pleasure in doing things?", "Are you here because you tried to hurt yourself?" and "Have you ever tried to hurt yourself before today?". ABUSE ASSESSMENT: No report of abuse. NUTRITIONAL RISK ASSESSMENT: The nutritional risk assessment revealed no deficiencies. FUNCTIONAL ASSESSMENT: Functional assessment: no impairments noted. LEARNING NEEDS ASSESSMENT: The learning needs assessment revealed no barriers. FALL RISK ASSESSMENT: Fall risk assessment completed. No risk factors identified. SKIN INTEGRITY ASSESSMENT: Skin integrity risk assessment completed. No skin integrity risk identified. --14:28 09/17/19 Madi Botello RN. Interventions To treatment room. --14:09/17/19 Madi Botello RN.PHYSICAL ASSESSMENTAmbulatory to room.GENERAL / NEURO / PSYCH: Alert. Oriented X 4. Appears in no acute distress.HEENT: Mucous membranes are pink.RESPIRATORY: Respirations not labored. Left upper, mid- and anterior chest wall tenderness. Breathsounds within normal limits.CVS: Normal sinus rhythm no ophelia. Heart sounds within normal limits. Pulses within normal limits.Capillary refill less than 2 seconds.GI / : Abdomen soft and nontender. ( Pt is 8 weeks ; states small amount of brown d/c pastfew days).SKIN: Skin is warm and dry. Normal skin turgor. --15:01 09/17/19 Juana Kapoor R.N.NURSING PROGRESS NOTESCardiac monitor, NIBP monitor and pulse oximeter placed on patient; cardiac cath lab manager- Lead II; monitoralarms on; monitor strip added to paper chart. Patient gowned. Head of bed elevated 75 degrees.Reassurance given. Three patient identifiers checked. Call light placed in reach. Side rails up x 2. Bedplaced in lowest position. Brakes of bed on. Patient ready for evaluation- ED physician and PA notified. 3 Clinical Report - Nurses [facility] Emergency Department [address] [place] [address] Phone #: ext- [phone] 09/17/2019 14:16 Patient: HELIO PARNELL Sex: F : 1990 Age: 28y--15:01 09/17/19 Juana Kapoor R.N.EKG time: (late entry - 14:42 09/17/2019). EKG was ordered, performed by a tech and shown to the EDphysician and PA. --15:02 09/17/19 Juana Kapoor R.N.Patient ID band checked for patient name and birthdate: patient confirmed. Instructions provided to collectclean catch urine and patient verbalized understanding. Clean catch urine collected; sample sent to lab forurinalysis. Specimen labeled in the presence of the patient. --15:02 09/17/19 Juana Kapoor R.N.15:00 09/17/2019 Site #1 started via IV in the left antecubital space with an 20g angiocath, with aseptictechnique and good blood return; one attempt. Blood drawn: rainbow set. Labeled in the presence of thepatient and sent to the lab. Saline lock flushed with 10 mL saline. --15:02 09/17/19 Juana Kapoor R.N.Rounding: Pain: assessed pain level. Position: states comfortable. Personal care / toileting: assisted withtoileting. Proximity of possessions / care items: call light within easy reach. Set expectations: advisedpatient of rounding protocol timing and asked if they needed anything else at this time. The patient reportsno complaints and she is calm and resting quietly. --15:13 09/17/19 Juana Kapoor R.N.15:30 09/17/19. BP: 120/79. MAP: 92. HR: 92. RR: 15. O2 saturation: 100%. --16:16 09/17/19 Juana Kapoor R.N.15:45 09/17/19. BP: 120/78. MAP: 92. HR: 86. RR: 18. O2 saturation: 100%. --16:16 09/17/19 Juana Kapoor R.N.16:00 09/17/19. BP: 120/72. MAP: 88. HR: 85. RR: 13. O2 saturation: 100%. --16:16 09/17/19 Juana Kapoor R.N.Rounding: Pain: assessed pain level. Position: states comfortable. Proximity of possessions / care items:call light within easy reach. Set expectations: advised patient of rounding protocol timing and asked if theyneeded anything else at this time. The patient reports no complaints and she is calm and resting quietly.Patient waiting for lab results. --16:16 09/17/19 Juana Kapoor R.N.The patient reports no complaints and she is calm and resting quietly. Overall patient status is improved.She states does not feel better. --17:26 09/17/19 Juana Kapoor R.N.17:15 09/17/19. BP: 126/79. MAP: 94. HR: 92. RR: 18. O2 saturation: 100% on room air. Pain level now:04/06. --17:26 09/17/19 Juana Kapoor R.N.16:45 09/17/19. BP: 122/80. MAP: 94. HR: 95. RR: 21. O2 saturation: 100%. --17:27 09/17/19 Juana Kapoor R.N.17:00 09/17/19. BP: 113/76. MAP: 88. HR: 91. RR: 14. O2 saturation: 100%. --17:27 09/17/19 Juana Kapoor R.N. 4 Clinical Report - Nurses [facility] Emergency Department [address] [place] [address] Phone #: ext- [phone] 09/17/2019 14:16 Patient: HELIO PARNELL Sex: F : 1990 Age: 28yDISPOSITION / DISCHARGE Condition at departure: stable. --17:20 09/17/19 Juana Kapoor R.N. 17:19 09/17/19. BP: 127/81. MAP: 96. HR: 92. RR: 18. O2 saturation: 100% on room air. Temp: 98.6 F (oral). Pain level now: 04/06. --17:20 09/17/19 Juana Kapoor R.N. 17:22 09/17/2019 Site #1 removed upon discharge. Bandage applied (2x2 and tape, no bleeding noted, pt tolerated well, clean dry and intact upon d/c.). --17:22 09/17/19 Juana Kapoor R.N. Departure time: late entry - 17:25 09/17/2019. No learning barriers present. Discharge instructions provided and reviewed with the patient. Reviewed warnings (please see paper copy). Reviewed medication(s) ( plus iron). Reviewed referrals (PCP and OBGYN). Activity restrictions reviewed. Work note given. Patient verbalized understanding. Written instructions provided in [place]. The patient was discharged by the physician. She was discharged home and unaccompanied at time of discharge. She left ambulatory and via private vehicle. Patient driving. --17:28 09/17/19 Juana Kapoor R.N.Locked/Released at 09/17/2019 17:28 by Juana Kapoor R.N. Name Value Range Interpretation Code Description Data Khalida rce(s) Supporting Document(s) ID Date Data Source [id number] 09/17/2019 02:24:00 PM EDT [facility] 1 Clinical Report - Physicians/Mid Levels [facility] Emergency Department [address] [place] [address] Phone #: ext- [phone] 09/17/2019 14:16 Patient: HELIO PARNELL Sex: F : 1990 Age: 28y Time Seen: 14:35 09/17/2019. Arrived- By private vehicle. Historian- patient. Disposition decision: 17:13 09/17/2019.HISTORY OF PRESENT ILLNESS Chief Complaint: CHEST PAIN. It is described as aching and left costocondral junction tenderness elicitable on palpation, worse with shoulder movements and it is described as located in the left chest area. This started yesterday 10 PM; 28 YEAR OLD WITH REPRODUCIBLE LEFT SIDED CHEST WALL PAIN SINCE 10 PM YESTERDAY. NO FALL. NO FEVER. NO COUGH, NOSOB. NO PEDAL EDEMA. anxious was worried. recently did home , which mitchel jimenez positive. vazquez grullon has an appointment with ob for further care,. n abdominal pain. no vaginal bleed. no dysuria. nausea due to . patient was googleling and got worried. works in insurance company . and is still present. (14 hours). Onset during rest. Modifying factors- worsened by movement. Not relieved by anything. The patient has had nausea (8 WGA pregant). No vomiting, difficulty breathing or diaphoresis. (no long distance travelling, no pedal edema, no fever, no tachypnea, no hypoxia on arrival). No additional chest pain. Recent medical care: Not recently seen/assessed.REVIEW OF SYSTEMS Currently : 8 weeks In 1st trimester. Recently diagnosed. G 3. P 1. Ab 1. No fever, chills, cough, pedal edema or calf pain. No abnormal bleeding.PAST HISTORY See nurses notes. chronic pain, depression, ab 1. No history of aortic disease, coronary artery disease, heart disease, lung disease or renal disease. No history of neurological disease, GI disease, other disease, congestive heart failure or heart rhythm problems. No history of pulmonary embolism, hypertension, hyperlipidemia or diabetes mellitus. No history of cardioversion. Problems: Depression. Cervical Strain. Migraine Headache. Surgeries: No prior cardiac procedures. Additional Surgeries: . Medications: Nitrofurantoin Macrocrystal Oral (Capsule 25 mg), as needed (after intercourse). Nitrofurantoin Oral. Venlafaxine HCl ER Oral (Tablet Extended Release 24 Hour 37.5 mg) 1 tablet, daily. 2 Clinical Report - Physicians/Mid Levels [facility] Emergency Department [address] [place] [address] Phone #: ext- [phone] 09/17/2019 14:16 Patient: HELIO PARNELL Sex: F : 1990 Age: 28y Venlafaxine HCl ER Oral (Tablet Extended Release 24 Hour 150 mg) 1 tablet, daily. Allergies: Penicillins. Sulfa Antibiotics.SOCIAL HISTORY Never smoker. No drug use. No recent travel. Is a local resident. Resides in a house. works in [employer].ADDITIONAL NOTES The nursing notes have been reviewed with agreement regarding the chief complaint, HPI, ROS, PMH and patient medications and allergies.PHYSICAL EXAM Vital Signs: 09/17/2019 14:19 BP: 139/83. MAP: 101. HR: 92. RR: 16. O2 saturation: 100%. Temp: 98.9 F. Pain level now: 10. Have been reviewed as normal. Blood pressure normal. Heart rate normal. Respiratory rate normal. Temperature normal. Oxygen saturation normal. Appearance: Alert. Oriented X3. No acute distress. No apparent distress. No marfanoid habitus. Eyes: Pupils equal, round and reactive to light. Eyes normal inspection. No scleral icterus or pale conjunctivae. ENT: Nose normal. Pharynx normal. No nasal discharge, pharyngeal erythema or tonsillar exudate. The mucous membranes are not dry. Neck: Normal inspection. Neck supple. No meningeal signs or lymphadenopathy. CVS: Normal heart rate. Heart sounds normal. Pulses normal. Rate normal. Rhythm normal. No extra heart sounds. PMI not displaced laterally. Respiratory: No respiratory distress. No respiratory distress. Chest pain reproducible with palpation of the costochondral junction and anterior chest wall and with movement of the left arm (left costocondral junction tenderness). Breath sounds normal. No retractions, accessory muscle use, splinting, decreased air movement or crackles. No rhonchi, wheezes or prolonged expiration. Abdomen: Soft and nontender. Bowel sounds normal. No abdominal tenderness, rebound tenderness, distention or mass present. The bowel sounds are not abnormal. Back: Normal external inspection. No CVA tenderness. Skin: Skin warm. Normal skin color. No rash. Extremities: Extremities exhibit normal ROM. No clubbing present or lower extremity edema. No calf tenderness. No lower extremity edema. Neuro: Oriented X 3.LABS, X-RAYS, AND EKG EKG: No acute process. No acute ischemia. Rate: 95. Normal EKG: independently viewed by me. Normal sinus rhythm. The study has been interpreted contemporaneously. The EKG appears to be a good tracing. Laboratory Tests: Laboratory tests have been ordered, with results reviewed and considered in the medical decision making process. Urinalysis: (CARLITOS: 09/17/2019 15:00) ( MsgRcvd 09/17/2019 15:31) Final results 3 Clinical Report - Physicians/Mid Levels [facility] Emergency Department [address] [place] [address] Phone #: ext- [phone] 09/17/2019 14:16 Patient: HELIO PARNELL Sex: F : 1990 Age: 28y Test Result Flag Units (Reference) URINALYSIS URINALYSIS SOURCE R COLOR yellow (NORMAL: Yello CLARITY clear (NORMAL: Clear SPEC GRAVITY 1.005 (1.001 - 1.030 pH 7 (5 - 9) GLUCOSE NORM (NORMAL: Negat BILIRUBIN NEG (NORMAL: Negat KETONE NEG (NORMAL: Negat PROTEIN NEG (NORMAL: Negat NITRITE NEG (NORMAL: Negat BLOOD 25 A (NORMAL: Negat LEUK EST NEG (NORMAL: Negat UROBILINOGEN NOR (less than 1.0 MICROSCOPIC See Below WBC 1 - 3 (NORMAL: NONE RBC 3 - 5 (NORMAL: NONE EPITHELIAL MANY A (NORMAL: NONE BACTERIA 2+ MOD A (NORMAL: NONECBC w Diff: (CARLITOS: 09/17/2019 14:18) ( MsgRcvd 09/17/2019 16:06) Correction to results Test Result Flag Units (Reference) CBC W/AUTOMATED DIFF CORRECTED REPORT COMPLETE BLOOD COUNT WBC 10.5 10/uL (4.2 - 11.0) RBC 4.61 10/uL (4.20 - 5.40) Above is a corrected result. Previously reported on ( MsgRcvd 09/17/2019 15:15) as: RBC 4.68 10/uL (4.20 - 5.40) HEMOGLOBIN 11.5 L g/dL (12.0 - 16.0) HEMATOCRIT 36.6 L % (37.0 - 47.0) Above is a corrected result. Previously reported on ( M sgRcvd 09/17/2019 15:15) as: HEMATOCRIT 36.9 L % (37.0 - 47.0) MCV 79.4 L fL (81.0 - 101) Above is a corrected result. Previously reported on ( MsgRcvd 09/17/2019) as: MCV 78.8 L fL (81.0 - 101)* MCH 24.9 L pg (27.0 - 34.0) Above is a corrected result. Previously reported on ( MsgRcvd 09/17/2019) as: MCH 24.6 L pg (27.0 - 34.0) MCHC 31.4 g/dL (31.0 - 36.0) Above is a corrected result. Previously reported on ( MsgRcvd 09/17/2019:15) as: MCHC 31.2 g/dL (31.0 - 36.0) RDW 15.7 H % (11.5 - 14.5) Above is a corrected result. Previously reported on ( MsgRcvd 09/17/2019 15:15) as: RDW 15.8 H % (11.5 - 14.5) PLATELETS 257 10/uL (517 - 450) 4 Clinical Report - Physicians/Mid Levels [facility] Emergency Department [address] [place] [address] Phone #: ext- [phone] 09/17/2019 14:16 Patient: HELIO PARNELL Sex: F : 1990 Age: 28y Above is a corrected result. Previously reported on ( MsgRcvd 09/17/2019 15:15) as: PLATELETS 254 10/uL (150 - 450) MPV 10.7 H fL (7.4 - 10.4)* Above is a corrected result. Previously reported on ( MsgRcvd 09/17/2019 15:15) as: MPV 10.1 fL (7.4 - 10.4) NEUT 64.1 % (37.0 - 80.0) Above is a corrected result. Previously reported on ( MsgRcvd 09/17/2019 15:15) as: NEUT 62.9 % (37.0 - 80.0) LYMPH 27.4 % (25.0 - 40.0) Above is a corrected result. Previously reported on ( MsgRcvd 09/17/2019:15) as: LYMPH 26.9 % (25.0 - 40.0) MONO 7.8 % (3.0 - 8.0) Above is a corrected result. Previously reported on ( MsgRcvd 09/17/2019 15:15) as: MONO 7.6 % (3.0 - 8.0) EOS 0.1 % (0.0 - 7.0) Above is a corrected result. Previously reported on ( MsgRcvd 09/17/2019 15:15) as: EOS 1.9 % (0.0 - 7.0) BASO 0.2 % (0.0 - 2.5) Above is a corrected result. Previously reported on ( MsgRcvd 09/17/2019:15) as: BASO 0.3 % (0.0 - 2.5) %IG 0.4 H % (0.0 - 0.0) %NRBC 0.0 % (0.0 - 0.0) #NEUT 6.76 10/uL ( - ) Above is a corrected result. Previously reported on ( MsgRcvd 09/17/2019:15) as: #NEUT 6.58 10/uL (2.00 - 6.90) #LYMPH 2.89 10/uL (0.60 - 3.40) Above is a corrected result. Previously reported on ( MsgRcvd 09/17/2019 15:15) as: #LYMPH 2.82 10/uL (0.60 - 3.40) #MONO 0.82 10/uL (0.00 - 0.90) Above is a corrected result. Previously reported on ( MsgRcvd 09/17/2019:15) as: #MONO 0.80 10/uL (0.00 - 0.90) #EOS 0.01 10/uL (0.00 - 0.70) Above is a corrected result. Previously reported on ( MsgRcvd 09/17/2019 15:15) as: #EOS 0.20 10/uL (0.00 - 0.70) #BASO 0.02 10/uL (0.00 - 0.20) Above is a corrected result. Previously reported on ( MsgRcvd 09/17/2019 15:15) as: #BASO 0.03 10/uL (0.00 - 0.20) #IG 0.04 10/uL (0.00 - 0.10) 5 Clinical Report - Physicians/Mid Levels [facility] Emergency Department [address] [place] [address] Phone #: ext- [phone] 09/17/2019 14:16 Patient: HELIO PARNELL Sex: F : 1990 Age: 28y #NRBC 0.00 10/uL (0.00 - 0.00) MANUAL DIFF NOT INDICATED RBC MORPH NOT INDICATED FOLLOWING RESULTS REPORTED IN ERROR RB] RBCHC] HEMATOCRIT MV] MCV MH] MCH CC] MCHCRD] RDW PL] PLATELETS MP] MPV N%] NEUTL%] LYMPH M%] MONO E%] EOS B%] BASON#] #NEUT L#] #LYMPH M#] #MONO E#] #EOSB#] #BASO { CORRECTCMP: (CARLITOS: 09/17/2019 14:18) ( MsgRcvd 09/17/2019 15:32) Final results Test Result Flag Units (Reference) COMPREHENSIVE METABOLIC PANEL COMPREHENSIVE METABOLIC PANEL SODIUM 134 mEq/L (134 - 153) POTASSIUM 4.3 mEq/L (3.6 - 5.0) CHLORIDE 100 mEq/L (98 - 107) CO2 25 MEQ/L (22 - 30) GLUCOSE 109 MG/DL (65 - 110) BUN 14 MG/DL (7 - 21) CREATININE 0.5 L MG/DL (0.7 - 1.5) BUN/CREAT 28 H (8 - 27) TOTAL PROTEIN 7.0 G/DL (6.3 - 8.2) ALBUMIN 4.1 G/DL (3.9 - 5.0) GLOBULIN 2.9 GM/DL (2.4 - 3.2) A/G RATIO 1.4 (0.8 - 2.0) CALCIUM 9.5 MG/DL (8.4 - 10.2) TOTAL BILI <0.7 MG/DL (0.2 - 1.3) ALKALINE PHOS 132 H U/L (38 - 126) SGOT/AST 16 U/L (5 - 40) SGPT/ALT 17 U/L (7 - 56) ANION GAP 9.0 mmol/L (8.0 - 16.0) AGE 28 yrs NON-AA GFR >60 mL/min AFR AMER GFR >60 mL/min Male GFR Interprentation 20-49 yrs >60 mL/min Dhzozy89-19 yrs >56 mL/min Normal 60-69 yrs >49 mL/min Normal 70-79yrs>42 mL/min Normal 80 and above >35 mL/min Normal Female GFRInterpretation 20-39 yrs >60 mL/min Normal 40-49 yrs >58 mL/minNormal 50-59 yrs >51 mL/min Normal 60-69 yrs >45 mL/min Tnezle20-80 yrs >39 mL/min Normal 80 and above >32 mL/min NormalTroponin-T: (CARLITOS: 09/17/2019 14:18) ( MsgRcvd 09/17/2019 15:30) Final results Test Result Flag Units (Reference) TROPONIN T <0.01 NG/ML (0.00 - 0.10) TROPONIN T0.1 ng/ml Recommended as the clinical threshold value forTroponin T.Beta-HCG, Quant Serum: (CARLITOS: 09/17/2019 14:18) ( MsgRcvd 09/17/2019 16:02) Final results Test Result Flag Units (Reference) HCG QUANT 38710.0 mIU/mL Interpretation: Less than 5 mU/mL: Negative6-10 mU/mL: Borderline (suggest repeat in 48 hours) >10: PositiveApprox HCG range (mU/mL) Weeks post LMP 5.4-708 mU/mL 3-4 Nnilu360-17719 mU/mL 5-6 Weeks 4059-394277 mU/mL 7-8 Qnrao92538-300467 mU/mL 9-10 Weeks 04826-21726 mU/mL 12-14 Weeks 6 Clinical Report - Physicians/Mid Levels [facility] Emergency Department [address] [place] [address] Phone #: ext- [phone] 09/17/2019 14:16 Patient: HELIO PARNELL Sex: F : 1990 Age: 28y 55053-60467 mU/mL 15-16 Weeks 8240-68792 mU/mL 17-18 Weeks.PROGRESS AND PROCEDURES Course of Care: 14:55 09/17/19. 14:55 Sep 17 2019. Patient is stable. explained to patient , reassured., no tachycardia, no tachypnea, no hypoxia, no pedal edema, EKG NAD, patient has reproducible left costocondral junction tenderness, worse with arm movement. hence reassured. EKG NAD. clinically no evidence of PE or pneumonia. no evidence of ACS. also.advised patient doing a CT scan will be more harm than benfits at this time when the suspicion is low and also clinically reproducibel chest wall pain. with normal vitals. 17:03 09/17/19. 17:11 09/17/19. HCG levels and hypochromic microcytic anemia discussed with patient. patient stable. no tachypnea, no hypoxia, no tachycardia. reassured , f/u with javascript web developer for further care of . Return if worsens, patient had anemia before. advised about iron supplements and vitamins. return if worsens for further care. 09/17/2019 16:15 BP: 120/76. MAP: 90. HR: 86. RR: 13. O2 saturation: 100%. Vital Signs: have been reviewed as normal. Blood pressure normal. Heart rate normal. Respiratory rate normal. Temperature normal. Oxygen saturation normal. Patient/family counseled. Old medical records ordered. Disposition: Discharged home in good and improved condition (17:13 Sep 17 2019). Condition: good.CLINICAL IMPRESSION Chest pain. First trimester ; positive test in emergency department. Ultrasound was not performed to determine location because the pain was not related to and CP with normal vitals- reproducible chest wall pain. Costochondritis Chronic iron deficiency anemia and hypochromic anemia.INSTRUCTIONS No strenuous activity. (take vitamins, and iron supplements. f/u with pcp and also with your form builder helper for further care. Return if worsens or any symptoms.). Warnings: Further evaluation is necessary. 7 Clinical Report - Physicians/Mid Levels [facility] Emergency Department [address] [place] [address] Phone #: ext- [phone] 09/17/2019 14:16 Patient: HELIO PARNELL Sex: F : 1990 Age: 28y GENERAL WARNINGS: Return or contact your physician immediately if your condition worsens or changes unexpectedly, if not improving as expected, or if other problems arise. Prescription Medications: Prenate Elite (iron asparto glycinate) 20 mg iron-1 mg tablet Take 1 tablet once a day as directed for 30 days -- Dispense 30 tablet. Refills: 0. Substitution permitted. Pharmacy - [facility] [phone] ; [place] [address]. . Follow-up: Follow up with your healthcare provider even if well. Call for an appointment. Reason for referral: evaluation and treatment. Summary of care provided to patient and follow-up provider via paper. Understanding of the discharge instructions verbalized by patient.(Electronically signed by Willie Puente M.D. 09/17/2019 17:48) Name Value Range Interpretation Code Description Data Khalida rce(s) Supporting Document(s) ID Date Data Source [id number] 09/17/2019 02:24:00 PM EDT [facility] Blank for HELIO PARNELL VisitID: [id number] Date: 19:46Pt urine culture growing enterococcus faecalis , pt is , allergic to pcn. Shown to [facility] at 1810, prescribed Macrobid 100mg PO BIDx7d, called pt who verbalized understandingat 181, called into [facility] at 1839(Electronically signed by Juana Kapoor R.N. - 09/21/2019 19:46) Name Value Range Interpretation Code Description Data Khalida rce(s) Supporting Document(s) ID Date Data Source [id number] 09/18/2019 03:29:00 AM EDT [facility] [address] [place] [address] RESPIRATORY CARE REPORT ==== ---------NAME------- NUMBER SEX AGE ADMIT DISC. XRAY# F/C ELIDA Lang [id number] F 28 09/17/19 09/17/19 [id number] E/R DATE OF : 1990 M/R# [id number] #: [id number] TR-1B LOCATION: EMERGENCY DEPT EKG [id number] COMPLE TE:09/17/19 15:24 [facility] [address] PHYSICIAN: CINDI Lang Name Value Range Interpretation Code Description Data Khalida rce(s) Supporting Document(s) ID Date Data Source [id number] 09/17/2019 03:00:00 PM EDT [facility] ([facility]) Name Value Range Interpretation Code Description Data Khalida rce(s) Supporting Document(s) Culture Urine Laboratory test result [facility] ([facility]) SOURCE: Clean Catch ID Date Data Source [id number] 09/17/2019 03:00:00 PM EDT [facility] ([facility]) Name Value Range Interpretation Code Description Data Khalida rce(s) Supporting Document(s) Source Laboratory test result [facility] ([facility]) SOURCE: Clean Catch Urinalysis Laboratory test result [facility] ([facility]) SOURCE: Clean Catch Color Laboratory test result [facility] ([facility]) SOURCE: Clean Catch Clarity Laboratory test result [facility] ([facility]) SOURCE: Clean Catch Spec [place] 1.005 1.001-1.030 [facility] ([facility]) SOURCE: Clean Catch pH 7 5-9 [facility] ([facility]) SOURCE: Clean Catch Ketone Laboratory test result [facility] ([facility]) SOURCE: Clean Catch Glucose Laboratory test result [facility] ([facility]) SOURCE: Clean Catch Bilirubin Laboratory test result [facility] ([facility]) SOURCE: Clean Catch Protein Laboratory test result [facility] ([facility]) SOURCE: Clean Catch Blood 25 Abnormal (applies to non-numeric res ults) [facility] ([facility]) SOURCE: Clean Catch Nitrite Laboratory test result [facility] ([facility]) SOURCE: Clean Catch Urobilinogen Laboratory test result [facility] ([facility]) SOURCE: Clean Catch Leuk Est Laboratory test result [facility] ([facility]) SOURCE: Clean Catch WBC Laboratory test result [facility] ([facility]) SOURCE: Clean Catch Microscopic Laboratory test result [facility] ([facility]) SOURCE: Clean Catch RBC Laboratory test result [facility] ([facility]) SOURCE: Clean Catch Epithelial Laboratory test result Abnormal (applies to non -numeric results) [facility] ([facility]) SOURCE: Clean Catch Bacteria Laboratory test result Abnormal (applies to non -numeric results) [facility] ([facility]) SOURCE: Clean Catch ID Date Data Source [id number] 09/21/2019 02:02:00 PM EDT [facility] Name Value Range Interpretation Code Description Data Khalida rce(s) Supporting Document(s) CULTURE URINE [facility] _CULTURE URINE_$$[id number]$$[id number]$$[id number]$$160442$$417364$$811566$$142240$$683092$$972368$$ 505977$$216304$$001266$$929947$$442168$$302935$$760211$$798570$$446837$$252768$$ 266456$$302767$$502942$$758815$$673309$$601405$$535159$$[id number] -- Continued on next page --Patient: SOHEILA CADET L Order: [id number] Page 2Culture: CULTURE URINE Status: Final ==== -- Continued on next page --Patient: SOHEILA CADET L Order: [id number] Page 2Culture: CULTURE URINE Status: Prelim =====$$[id number]$$[id number] DATE/TIME: 09/21/2019 13:06Culture: CULTURE URINE Status: FinalIsolate 1 Enterococcus faecalis Flag: A . . . . . . .710,000-25,000 colony forming units per mL Previous result entered on 09/20/2019 04:11 ET Microbiological testing to rule out the presence of possible pathogensis in progress.Urine Culture,Comprehensive: [id number] faecalis Flag: APatient: SOHEILA Lang Order: [id number] Page 3Culture: CULTURE URINE Status: Final ISOLATE 1 Enterococcus faecalis Isolate 1Antibiotic LASHAWN IntUnits ug/mL Ciprofloxacin S S . . . . . .185-9Levofloxacin S S . . . . . .10815- 8Nitrofurantoin S S . . . . . .363-2Penicillin S S . . . . . .6932-8Tetracycline R R . . . . . .496-0Vancomycin S S . . . . . .524-9P1 Test performed by: [facility] #: [id number] [address] [place] [id number] [facility] [id number] Director : Norberto Gonzalez MD NPI #:Commodities Trader : 09/[email or web address].SENT REF 09/21/[id number].SENT REF ID Date Data Source [id number] 09/17/2019 03:30:00 PM EDT [facility] Name Value Range Interpretation Code Description Data Khalida rce(s) Supporting Document(s) URINALYSIS [facility] stella [facility] COL[facility] yellow NORMAL: Yellow [facility] CLARITY clear NORMAL: Clear [facility] Specific gravity of Urine by Test strip 1.005 1.001 - 1.030 [facility] pH 7 5 - 9 [facility] Glucose [Mass/volume] in Urine by Test strip NORM NORMAL: Negat [facility] Bilirubin.total [Presence] in Urine by Test strip NEG NORMAL: Negative [facility] Ketones [Presence] in Urine by Test strip NEG NORMAL: Negative [facility] Protein [Mass/volume] in Urine by Test strip NEG NORMAL: Negat [facility] Nitrite [Presence] in Urine by Test strip NEG NORMAL: Negative [facility] BLOOD 25 NORMAL: Negative [facility] Leukocyte esterase [Presence] in Urine by Test strip NEG CARRI L: Negative [facility] Urobilinogen [Mass/volume] in Urine by Test strip NOR less rene n 1.0 mg/dL [facility] MICROSCOPIC See Below [facility] ital WBC 1 - 3 NORMAL: NONE SEEN [facility] Erythrocytes [#/volume] in Urine by Test strip 3 - 5 NORMAL: NON E SEEN [facility] EPITHELIAL MANY NORMAL: NONE SEEN A [facility] Bacteria [Presence] in Urine sediment by Light microscopy 2+ MOD NORMAL: NONE SEEN A [facility] ID Date Data Source [id number] 09/17/2019 02:18:00 PM EDT [facility] Name Value Range Interpretation Code Description Data Khalida rce(s) Supporting Document(s) Choriogonadotropin.beta subunit [Moles/volume] in Seru m or Plasma 20713.0 mIU/mL [facility]) Interpretation: Less than 5 mU/mL: Negative 6-10 mU/mL: Borderline (suggest repeat i n 48 hours) >10: Positive Approx HCG range (mU/mL) Weeks post LMP 5.4-708 mU/mL 3-4 Weeks 217-58724 mU/mL 5-6 Weeks 4059-544470 mU/mL 7-8 Weeks 31744-270793 mU/mL 9-10 Weeks 89573-35010 mU/mL 12-14 Weeks 21940-45143 mU/mL 15-16 Weeks 8587-00071 mU/mL 17-18 Weeks ID Date Data Source [id number] 09/17/2019 02:18:00 PM EDT [facility] ([facility]) Name Value Range Interpretation Code Description Data Khalida rce(s) Supporting Document(s) Chloride 100 meq/L 98-107 [facility] ([facility]) Sodium 134 meq/L 134-153 [facility] ([facility]) Potassium 4.3 meq/L 3.6-5.0 [facility] ([facility]) Comprehensive [employer] Laboratory test result [facility] ([facility]) COMPREHENSIVE METABOLIC PANEL BUN 14 mg/dL 7-21 [facility] ([facility]) Co2 25 meq/L 22-30 [facility] ([facility]) Glucose 109 mg/dL 65-110 [facility] ([facility]) Albumin 4.1 g/dL 3.9-5.0 [facility] ([facility]) Creatinine 0.5 mg/dL 0.7-1.5 Below low normal [facility] ( [facility]) Total Protein 7.0 g/dL 6.3-8.2 [facility] ([facility]) BUN/Creat 28 8-27 Above high normal [facility] ([facility]) Globulin 2.9 GM/DL 2.4-3.2 [facility] ([facility]) Calcium 9.5 mg/dL 8.4-10.2 [facility] ([facility]) A/G Ratio 1.4 0.8-2.0 [facility] ([facility]) SGPT/Alt 17 U/L 7-56 [facility] ([facility]) Sgot/Ast 16 U/L 5-40 [facility] ([facility]) Alkaline Phos 132 U/L 38-126 Above high normal [facility] ([facility]) Total Bili Laboratory test result 0.2-1.3 [facility] ([facility]) Anion Gap 9.0 mmol/L 8.0-16.0 [facility] ([facility]) Non-Aa GFR Laboratory test result [facility] ([facility]) Age 28 yrs [facility] ([facility]) Afr Amer GFR Laboratory test result [facility] ([facility]) Male GFR Interprentation 20-49 yrs >60 mL/min Normal 50-59 yrs >56 mL/min Normal 60-69 yrs >49 mL/min Normal 70-79yrs >42 mL/min Normal 80 and above >35 mL/min Normal Female GFR Interpretation 20-39 yrs >60 mL/min Normal 40-49 yrs >58 mL/min Normal 50-59 yrs >51 mL/min Normal 60-69 yrs >45 mL/min Normal 70-79 yrs >39 mL/min Normal 80 and above >32 mL/min Normal ID Date Data Source [id number] 09/17/2019 02:18:00 PM EDT [facility] Name Value Range Interpretation Code Description Data Khalida rce(s) Supporting Document(s) Troponin T.cardiac [Mass/volume] in Serum or Plasma Laborato ry test result 0.00-0.10 [facility] ([facility]) TROPONIN T 0.1 ng/ml Recommended as the clinical th reshold value for Troponin T. ID Date Data Source [id number] 09/17/2019 02:18:00 PM EDT [facility] ([facility]) Name Value Range Interpretation Code Description Data Khalida rce(s) Supporting Document(s) CBC W/Automated Diff Laboratory test result [facility]) CORRECTE D REPORT COMPLETE BLOOD COUNT Hematocrit 36.6 % 37.0-47.0 Below low normal [facility] ( [facility]) RBC 4.61 10^6/uL 4.20-5.40 [facility] ([facility]) WBC 10.5 10^3/uL 4.2-11.0 [facility] ([facility]) Hemoglobin 11.5 g/dL 12.0-16.0 Below low normal [facility] ( [facility]) MCHC 31.4 g/dL 31.0-36.0 [facility] ([facility]) MCH 24.9 pg 27.0-34.0 Below low normal [facility] ( [facility]) MCV 79.4 fL 81.0-101 Below low normal [facility] ( [facility]) RDW 15.7 % 11.5-14.5 Above high normal [facility] ([facility]) MPV 10.7 fL 7.4-10.4 Above high normal [facility] ([facility]) Platelets 257 10^3/uL 150-450 [facility] ([facility]) [place] 7.8 % 3.0-8.0 [facility] ([facility]) Neut 64.1 % 37.0-80.0 [facility] ([facility]) Lymph 27.4 % 25.0-40.0 [facility] ([facility]) %Ig 0.4 % 0.0-0.0 Above high normal [facility] ([facility]) %NRBC 0.0 % 0.0-0.0 [facility] ([facility]) Baso 0.2 % 0.0-2.5 [facility] ([facility]) Eos 0.1 % 0.0-7.0 [facility] ([facility]) #[place] 0.82 10^3/uL 0.00-0.90 [facility] ([facility]) #Neut 6.76 10^3/uL 2.00-6.90 [facility] ([facility]) #Lymph 2.89 10^3/uL 0.60-3.40 [facility] ([facility]) #Eos 0.01 10^3/uL 0.00-0.70 [facility] ([facility]) #Baso 0.02 10^3/uL 0.00-0.20 [facility] ([facility]) #Ig 0.04 10^3/uL 0.00-0.10 [facility] ([facility]) RBC Morph Laboratory test result [facility] ([facility]) <content> FOLLOWING RESULTS REPORTED IN ERROR </content>
<content>RB] RBC</content>
<content></content>
<content></content>
<content> </content>
<content></content>
<content></content>
<content></conten t>
<content>4.68</content>
<content></content>
<content><-- *Previously reported in error s009/17/19.1514.TAD. .syxn .789- 8</content>
<content>HC] HEMATOCRIT</content>
<content></content>
<content></content>
<conten t></content>
<content></content>
<content></content>
<content>36.9</content><br/ ><content></content>
<content></content>
<content>L <-- *Previously reported in error s009/17/19.1514.TAD. .syxn .4544- 3</content>
<content>MV] MCV</content>
<content></content>
<content></content>
<content></con tent>
<content></content>
<content></content>
<content>78.8</content><br/ ><content></content>
<content></content>
<content>L <-- *Previously reported in error 09/17/19.1514.TAD. .syxn .787- 2</content>
<content>MH] MCH</content>
<content></content>
<content></content>
<content></con tent>
<content></content>
<content></content>
<content>24.6</content><br/ ><content></content>
<content></content>
<content>L <-- *Previously reported in error 09/17/19.4.TAD. .carly .785- 6</content>
<content>CC] MCHC</content>
<content></content>
<content></content>
<content></co ntent>
<content></content>
<content></content>
<content>31.2</content><br/ ><content></content>
<content></content>
<content><-- *Previously reported in error 09/17/19.4.TAD. .syxn .786- 4</content>
<content>RD] RDW</content>
<content></content>
<content></content>
<content></con tent>
<content></content>
<content></content>
<content>15.8</content>
<con tent></content>
<content></content>
<content>H <-- *Previously reported in error 09/17/19.4.TAD. .syxn .788- 0</content>
<content>PL] PLATELETS</content>
<content></content>
<content></content>
<content > </content>
<content></content>
<content>254</content>
<content></con tent>
<content></content>
<content></content>
<content></content>
<content><-- *Previously reported in error 09/17/194.TAD. .syxn .777-3</content>
<content>MP] MPV</content>
<content></content>
<content></content>
<content></con tent>
<content></content>
<content></content>
<content>10.1</content>
<con tent></content>
<content></content>
<content><-- *Previously reported in error 09/17/19.4.TAD. .syxn .06466- 1</content>
<content>N%] NEUT</content>
<content></content>
<content></content>
<content></co ntent>
<content></content>
<content></content>
<content>62.9</content><br/ ><content></content>
<content></content>
<content><-- *Previously reported in error 09/17/194.TAD. .syxn .770- 8</content>
<content>L%] LYMPH</content>
<content></content>
<content></content>
<content></c ontent>
<content></content>
<content></content>
<content>26.9</content><br/ ><content></content>
<content></content>
<content><-- *Previously reported in error 09/17/194.TAD. .syxn .737- 7</content>
<content>M%] MONO</content>
<content></content>
<content></content>
<content></co ntent>
<content></content>
<content></content>
<content></content>
<co ntent>7.6</content>
<content></content>
<content></content>
<content ><-- *Previously reported in error 09/17/194.TAD. .syxn .5905-5</content>
<content>E%] EOS</content>
<content></content>
<content></content>
<content></con tent>
<content></content>
<content></content>
<content></content>
<co ntent>1.9</content>
<content></content>
<content></content>
<content ><-- *Previously reported in error 09/17/19.4.TAD. .syxn .713- 8</content>
<content>B%] BASO</content>
<content></content>
<content></content>
<content></co ntent>
<content></content>
<content></content>
<content></content>
<co ntent>0.3</content>
<content></content>
<content></content>
<content ><-- *Previously reported in error 09/17/194.TAD. .syshan .706- 2</content>
<content>N#] #NEUT</content>
<content></content>
<content></content>
<content></c ontent>
<content></content>
<content></content>
<content></content>
<co ntent>6.58</content>
<content></content>
<content><-- *Previously reported in error 09/17/19.4.TAD. .syxn .751- 8</content>
<content>L#] #LYMPH</content>
<content></content>
<content></content>
<content></ content>
<content></content>
<content></content>
<content></content>
<co ntent>2.82</content>
<content></content>
<content><-- *Previously reported in error 09/17/194.TAD. .syshan .731- 0</content>
<content>M#] #MONO</content>
<content></content>
<content></content>
<content></c ontent>
<content></content>
<content></content>
<content></content>
<co ntent>0.80</content>
<content></content>
<content><-- *Previously reported in error 09/17/194.TAD. .alxn .742- 7</content>
<content>E#] #EOS</content>
<content></content>
<content></content>
<content></co ntent>
<content></content>
<content></content>
<content></content>
<co ntent>0.20</content>
<content></content>
<content><-- *Previously reported in error 09/17/19.1514.TAD. .syxn .711- 2</content>
<content>B#] #BASO</content>
<content></content>
<content></content>
<content></c ontent>
<content></content>
<content></content>
<content></content>
<co ntent>0.03</content>
<content></content>
<content><-- *Previously reported in error 09/17/19.1514.TAD. .syxn .704- 7</content>
<content>{ CORRECT</content>
<content></content> Manual Diff Laboratory test result M PHI ([facility]) #NRBC 0.00 10^3/uL 0.00-0.00 [facility] ([facility]) ID Date Data Source [id number] 09/17/2019 04:06:00 PM EDT [facility] Name Value Range Interpretation Code Description Data Khalida rce(s) Supporting Document(s) CBC W/AUTOMATED DIFF [facility] CORRECTE D REPORT COMPLETE BLOOD COUNT Leukocytes [#/volume] in Blood by Automated count 10.5 10^3/uL 4.2 - 11.0 [facility] Erythrocytes [#/volume] in Blood by Automated count 4.61 10^6/uL 4. 20 - 5.40 [facility] Hemoglobin [Mass/volume] in Blood 11.5 g/dL 12.0 - 16.0 L [facility] Hematocrit [Volume Fraction] of Blood by Automated count 36.6 % 3 7.0 - 47.0 L [facility] Erythrocyte mean corpuscular volume [Entitic volume] by Auto mated count 79.4 fL 81.0 - 101 L [facility] Erythrocyte mean corpuscular hemoglobin [Entitic mass] by Automated count 24.9 pg 27.0 - 34.0 L [facility] Erythrocyte mean corpuscular hemoglobin concentration [Mass/volume] by Automated count 31.4 g/dL 31.0 - 36.0 [facility] Erythrocyte distribution width [Ratio] by Automated count 15.7 % 11.5 - 14.5 H [facility] Platelets [#/volume] in Blood by Automated count 257 10^3/uL 150 - 45 0 [facility] Platelet mean volume [Entitic volume] in Blood by Automated count 10.7 fL 7.4 - 10.4 H [facility] Neutrophils/100 leukocytes in Blood by Automated count 64.1 % 37. 0 - 80.0 [facility] Lymphocytes/100 leukocytes in Blood by Manual count 27.4 % 25.0 - 40.0 [facility] Monocytes/100 leukocytes in Blood by Automated count 7.8 % 3.0 - 8.0 [facility] Eosinophils/100 leukocytes in Blood by Automated count 0.1 % 0.0 - 7.0 [facility] Basophils/100 leukocytes in Blood by Automated count 0.2 % 0.0 - 2.5 [facility] %IG 0.4 % 0.0 - 0.0 [facility] %NRBC 0.0 % 0.0 - 0.0 [facility] Neutrophils [#/volume] in Blood by Automated count 6.76 10^3/uL 2.00 - 6.90 [facility] Lymphocytes [#/volume] in Blood by Automated count 2.89 10^3/uL 0.60 - 3.40 [facility] Monocytes [#/volume] in Blood by Automated count 0.82 10^3/uL 0.00 - 0.90 [facility] Eosinophils [#/volume] in Blood by Automated count 0.01 10^3/uL 0.00 - 0.70 [facility] Basophils [#/volume] in Blood by Automated count 0.02 10^3/uL 0.00 - 0.20 [facility] #IG 0.04 10^3/uL 0.00 - 0.10 [facility] ospital #NRBC 0.00 10^3/uL 0.00 - 0.00 [facility] ospital MANUAL DIFF NOT INDICATED [facility] RBC MORPH NOT INDICATED [facility] spital FOLLOWING RESULTS REPORTED IN ERROR RB] RBC HC] HEMATOCRIT MV] MCV MH] MCH CC] MCHC RD] RDW PL] PLATELETS MP] MPV N%] NEUT L%] LYMPH M%] MONO E%] EOS B%] BASO N#] #NEUT L#] #LYMPH M#] #MONO E#] #EOS B#] #BASO { CORRECT ID Date Data Source [id number] 09/17/2019 04:02:00 PM EDT [facility] Name Value Range Interpretation Code Description Data Khalida rce(s) Supporting Document(s) Choriogonadotropin.intact [Units/volume] in Serum or Plasma 66325.0 mIU/mL [facility] Interpr etation: Less than 5 mU/mL: Negative 6-10 mU/mL: Borderline (suggest repeat in 48 hours) >10: Positive Approx HCG range (mU/mL) Weeks post LMP 5.4-708 mU/mL 3-4 Weeks 217-26711 mU/mL 5-6 Weeks 4059-279731 mU/mL 7-8 Weeks 82500-478061 mU/mL 9-10 Weeks 63163-21594 mU/mL 12-14 Weeks 28574-42201 mU/mL 15-16 Weeks 5634- 81710 mU/mL 17-18 Weeks ID Date Data Source [id number] 09/17/2019 03:32:00 PM EDT [facility] Name Value Range Interpretation Code Description Data Khalida rce(s) Supporting Document(s) COMPREHENSIVE METABOLIC PANEL [facility] COMPREHENSIVE METABOLIC PANEL Sodium [Moles/volume] in Serum or Plasma 134 mEq/L 134 - 153 [facility] Potassium [Moles/volume] in Serum or Plasma 4.3 mEq/L 3.6 - 5.0 [facility] Chloride [Moles/volume] in Serum or Plasma 100 mEq/L 98 - 107 [facility] Carbon dioxide, total [Moles/volume] in Serum or Plasma 25 MEQ/L 22 - 30 [facility] Glucose [Mass/volume] in Serum or Plasma 109 MG/DL 65 - 110 [facility] BUN 14 MG/DL 7 - 21 [facility] Creatinine [Mass/volume] in Serum or Plasma 0.5 MG/DL 0.7 - 1.5 L [facility] BUN/CREAT 28 8 - 27 H [facility] al Protein [Mass/volume] in Serum or Plasma 7.0 G/DL 6.3 - 8.2 [facility] Albumin [Mass/volume] in Serum or Plasma 4.1 G/DL 3.9 - 5.0 [facility] Globulin [Mass/volume] in Serum by calculation 2.9 GM/DL 2.4 - 3.2 [facility] A/G RATIO 1.4 0.8 - 2.0 [facility] Calcium [Mass/volume] in Serum or Plasma 9.5 MG/DL 8.4 - 10.2 [facility] Bilirubin.total [Mass/volume] in Serum or Plasma <0.7 MG/DL 0.2 - 1.3 [facility] Alkaline phosphatase [Enzymatic activity/volume] in Serum or Plasma 132 U/L 38 - 126 H [facility] Aspartate aminotransferase [Enzymatic activity/volume] in Serum or Plasma 16 U/L 5 - 40 [facility] Alanine aminotransferase [Enzymatic activity/volume] in Seru m or Plasma 17 U/L 7 - 56 [facility] Anion gap 3 in Serum or Plasma 9.0 mmol/L 8.0 - 16.0 [facility] AGE 28 yrs [facility] NON-AA GFR >60 mL/min [facility] ital AFR AMER GFR >60 mL/min [facility] spital Male GFR In terprentation 20-49 yrs >60 mL/min Normal 50-59 yrs >56 mL/min Normal 60-69 yrs >49 mL/min Normal 70-79yrs >42 mL/min Normal 80 and above >35 mL/min Normal Female GFR Interpretation 20-39 yrs >60 mL/min Normal 40-49 yrs >58 mL/min Normal 50-59 yrs >51 mL/min Normal 60-69 yrs >45 mL/min Normal 70-79 yrs >39 mL/min Normal 80 and above >32 mL/min Normal ID Date Data Source [id number] 09/17/2019 03:29:00 PM EDT [facility] Name Value Range Interpretation Code Description Data Khalida rce(s) Supporting Document(s) TROPONIN T <0.01 NG/ML 0.00 - 0.10 [facility]ital TROPONIN T0.1 ng/ml Recommended as the c linical threshold value forTroponin T. ID Date Data Source [id number] 08/14/2019 08:41:00 AM EDT [facility] ([facility], ) Name Value Range Interpretation Code Description Data Khalida rce(s) Supporting Document(s) Calcidiol [Mass/volume] in Serum or Plasma 56.3 ng/mL 30.0-100.0 [facility] ([facility] ) ID Date Data Source [id number] 08/14/2019 08:41:00 AM EDT [facility] ([facility] ) Name Value Range Interpretation Code Description Data Khalida rce(s) Supporting Document(s) Vitamin B12 Level 627 pg/mL [facility] VITAMIN B12 NORMAL RANGE NORMAL 247 - 911 PG/ML INDETERMINATE 211 - 246 PG/ML DEFICIENT LESS THAN 211 PG/ML Folate Laboratory test result [facility] ([facility] ) FOLATE NORMAL RANGE NORMAL GREATER THAN 5.4 NG/ML INDETERMINATE 3.4-5.4 NG/ML DEFICIENT LESS THAN 3.4 NG/ML ID Date Data Source [id number] 08/14/2019 08:41:00 AM EDT [facility] ([facility]) Name Value Range Interpretation Code Description Data Khalida rce(s) Supporting Document(s) Thyrotropin [Units/volume] in Serum or Plasma 1.960 uIU/ML 0.358-3.74 0 [facility] ([facility]) ID Date Data Source [id number] 08/14/2019 08:41:00 AM EDT [facility] ([facility]) Name Value Range Interpretation Code Description Data Khalida rce(s) Supporting Document(s) Glucose, Fasting 104 mg/dL 70-100 [facility] ([facility]) Creatinine For GFR 0.68 mg/dL 0.55-1.30 [facility] ([facility]) Blood Urea Nitrogen 13 mg/dL 7-18 [facility] ([facility]) Glomerular Filtration Rate Laboratory test result [facility]) <content>Units are mL/min/1.73 m2</content>
<content></content>
<content>Chronic Kidney Disease Staging per NKF:</content>
<content></content>
<content>Stage I & II GFR >=60 Normal to Mildly Decreased</content>
<content>Stage III GFR 30- 59 Moderately Decreased</content>
<content>Stage IV GFR 15-29 Severely Decreased</content>
<content>Stage V GFR <15 Very Little GFR Left</content>
<content>ESRD GFR <15 on DECISION ANALYST</content>
<content></content> Sodium Level 139 meq/L 136-145 [facility] ([facility]) Potassium Serum 4.5 meq/L 3.5-5.1 [facility] ([facility]) Chloride Level 106 meq/L 98-107 [facility] ([facility]) Calcium Level 9.4 mg/dL 8.5-10.1 [facility] ([facility]) Anion Gap 4 meq/L 8-16 [facility] ([facility]) Carbon Dioxide Level 29 meq/L 21-32 [facility] Alt/SGPT 28 U/L 12-78 [facility] ([facility]) Alkaline Phosphatase 156 U/L 45-117 [facility] ([facility]) Ast/Sgot 18 U/L 7-37 [facility] ([facility]) Albumin 3.7 GM/DL 3.2-5.2 [facility] ([facility]) Total Protein 7.3 GM/DL 6.4-8.2 [facility] ([facility]) Bilirubin,Total 0.5 mg/dL 0.2-1.0 [facility] ([facility]) Albumin/Globulin Ratio 1.0 1.2-2.2 [facility] ([facility]) ID Date Data Source [id number] 08/14/2019 08:41:00 AM EDT [facility] ([facility]) Name Value Range Interpretation Code Description Data Khalida rce(s) Supporting Document(s) White Blood Count 7.3 10 4.0-10.0 [facility] ([facility]) Hemoglobin 12.3 g/dL 12.0-15.5 [facility] Hematocrit 40.1 % 36.0-47.0 [facility] ([facility]) Red Blood Count 4.88 10 4.00-5.40 [facility] ([facility]) Mean Corpuscular Hemoglobin 25.2 pg 27.0-33.0 [facility] ([facility]) Mean Corpuscular Volume 82.2 fl 80.0-96.0 M [facility]ENT ([facility]) Mean Corpuscular HGB Conc 30.7 g/dL 32.0-36.5 [facility] ([facility]) Platelet Count, Automated 240 10 150-450 [facility] ([facility]) Red Cell Distribution Width 13.4 % 11.5-14.5 [facility] ([facility]) Neutrophils % 68.2 % 36.0-66.0 [facility] ([facility]) Lymph % 26.5 % 24.0-44.0 [facility] ([facility]) Eos % 0.0 % 0.0-3.0 [facility] ([facility] [place] % 4.7 % 0.0-5.0 [facility] ([facility]) Immature Granulocyte % 0.3 % 0-3.0 [facility] ([facility] ) Nucleated Red Blood Cell % 0.0 % 0-0 MED ENT ([facility], ) Baso % 0.3 % 0.0-1.0 [facility] ([facility]) Lymph # 1.9 10 1.5-5.0 [facility] ([facility] [place] # 0.3 10 0.0-0.8 [facility] ([facility]) Neutrophils # 5.0 10 1.5-8.5 [facility] ([facility] ) Eos # 0.0 10 0.0-0.5 [facility] ([facility]) Baso # 0.0 10 0.0-0.2 [facility] ([facility], ) ID Date Data Source RHO 06/03/2019 12:00:00 AM EDT eCW1 ([facility]) Name Value Range Interpretation Code Description Data Khalida rce(s) Supporting Document(s) TRANSFUSED PRODUCT: RHOGAM CO UNT: 1 RHOGAM eCW1 ([facility]) ID Date Data Source Pathology Request For Service 06/03/2019 12:00:00 AM EDT eCW 1 ([facility]) Name Value Range Interpretation Code Description Data Khalida rce(s) Supporting Document(s) GENITOURINARY eCW1 ([facility]) ID Date Data Source Type and Screen Prenatal1 06/03/2019 12:00:00 AM EDT eCW1 ([facility]) Name Value Range Interpretation Code Description Data Khalida rce(s) Supporting Document(s) NEGATIVE AB SCREEN PNP1 GEL (VIS) eCW1 ([facility]) ID Date Data Source HEPATITIS C ANTIBODY INDEX 05/27/2019 12:00:00 AM EDT eCW1 ( [facility]) Name Value Range Interpretation Code Description Data Khalida rce(s) Supporting Document(s) 0.1 <0.8 HEPATITIS C VIRUS SILKE INDEX eC W1 ([facility]) ID Date Data Source HEPATITIS B SURFACE ANTIGEN 05/27/2019 12:00:00 AM EDT eCW1 ([facility]) Name Value Range Interpretation Code Description Data Khalida rce(s) Supporting Document(s) NEGATIVE NEGATIVE HEPATITIS B SURFACE ANTIG EN eCW1 ([facility]) ID Date Data Source RUBELLA IMMUNE STATUS IgG 05/27/2019 12:00:00 AM EDT eCW1 ([facility]) Name Value Range Interpretation Code Description Data Khalida rce(s) Supporting Document(s) IMMUNE IMMUNE RUBELLA IgG QUALITATIVE eCW1 ( [facility]) ID Date Data Source SYPHILIS ANTIBODY (RPR SCREEN) 05/27/2019 12:00:00 AM EDT eC W1 ([facility]) Name Value Range Interpretation Code Description Data Khalida rce(s) Supporting Document(s) NONREACTIVE NONREACTIVE SYPHILIS eCW1 ([facility]) ID Date Data Source CHLAMYDIA & GC DNA AMPLIFICAT 05/27/2019 12:00:00 AM EDT eCW 1 ([facility]) Name Value Range Interpretation Code Description Data Khalida rce(s) Supporting Document(s) Chlamydia trachomatis rRNA [Presence] in Unspecified specimen by Probe and target amplification method NEGATIVE NEGATIVE CHLAMYDIA DNA AMPLIFICATION eCW1 ([facility]) Procedure Social History Code Duration Value Status Description Data Source(s ) Smoking 03/31/2020 12:00:00 AM EST Never Smoker completed Never S moker eCW1 ([facility]) Smoking 03/21/2020 12:00:00 AM EST Never Smoker completed Never S moker eCW1 ([facility]) Smoking 03/04/2020 12:00:00 AM EST Never Smoker completed Never S moker eCW1 ([facility]) Smoking 02/15/2020 12:00:00 AM EST Never Smoker completed Never S moker eCW1 ([facility]) Smoking 01/07/2020 12:00:00 AM EST Never Smoker completed Never S moker eCW1 ([facility]) Smoking 01/07/2020 12:00:00 AM EST Never Smoker completed Never S moker eCW1 ([facility]) Smoking 06/05/2019 12:00:00 AM EDT Never Smoker completed Never S lisset eCW1 ([facility]) Vital Signs ID Date Data Source UNK Name Value Range Interpretation Code Description Data Source(s) Diastolic blood pressure 82 mm[Hg] 82 mm[Hg] eCW1 ([facility]) Systolic blood pressure 144 mm[Hg] 144 mm[Hg] e 1 ([facility]) Body mass index (BMI) [Ratio] 37.607 kg/m2 37.6 07 kg/m2 [facility] ([facility]) Body height 66 [in_i] 66 [in_i] eCW1 ([facility]) Body weight 105.69 kg 105.69 kg W1 ([facility]) Body weight 233 [lb_av] 233 [lb_av] eCW1 ([facility]) Diastolic blood pressure 86 mm[Hg] 86 mm[Hg] eCW1 ([facility]) Systolic blood pressure 140 mm[Hg] 140 mm[Hg] e 1 ([facility]) Body weight 217 [lb_av] 217 [lb_av] eCW1 ([facility]) Diastolic blood pressure 68 mm[Hg] 68 mm[Hg] eCW1 ([facility]) Systolic blood pressure 126 mm[Hg] 126 mm[Hg] e CW1 ([facility]) Body mass index (BMI) [Ratio] 34.76 kg/m2 34.76 kg/m2 [facility] ([facility]) Body height 66 [in_i] 66 [in_i] eCW1 ([facility]) Body weight 215.4 [lb_av] 215.4 [lb_av] eCW1 ([facility]) Diastolic blood pressure 70 mm[Hg] 70 mm[Hg] eCW1 ([facility]) Systolic blood pressure 126 mm[Hg] 126 mm[Hg] e CW1 ([facility]) Body mass index (BMI) [Ratio] 33.572 kg/m2 33.5 72 kg/m2 [facility] ([facility]) Body height 66 [in_i] 66 [in_i] eCW1 ([facility]) Body weight 94.35 kg 94.35 kg eCW1 ([facility]) Body weight 208 [lb_av] 208 [lb_av] eCW1 ([facility]) Diastolic blood pressure 66 mm[Hg] 66 mm[Hg] eCW1 ([facility]) Systolic blood pressure 122 mm[Hg] 122 mm[Hg] e CW1 ([facility]) Body mass index (BMI) [Ratio] 32.442 kg/m2 32.4 42 kg/m2 W1 ([facility]) Body height 66 [in_i] 66 [in_i] eCW1 ([facility]) Body weight 201.0 [lb_av] 201.0 [lb_av] eCW1 ([facility]) Respiratory rate 20 /min 20 /min MEDENT ( [facility] ) Heart rate 96 /min 96 /min MEDENT ([facility] ) Diastolic blood pressure 70 mm[Hg] 70 mm[Hg] MEDENT ([facility] ) Systolic blood pressure 110 mm[Hg] 110 mm[Hg] M EDENT ([facility] ) Diastolic blood pressure 76 mm[Hg] 76 mm[Hg] eCW1 ([facility]) Systolic blood pressure 116 mm[Hg] 116 mm[Hg] e CW1 ([facility]) Body mass index (BMI) [Ratio] 31.24 kg/m2 31.24 kg/m2 eCW1 ([facility]) Body height 66 [in_us] 66 [in_us] eCW1 ([facility]) Body weight Measured 193.6 [lb_av] 193.6 [lb_av ] eCW1 ([facility]) Diastolic blood pressure 72 mm[Hg] 72 mm[Hg] eCW1 ([facility]) Systolic blood pressure 112 mm[Hg] 112 mm[Hg] e CW1 ([facility]) Body mass index (BMI) [Ratio] 31.764 kg/m2 31.7 64 kg/m2 [facility] ([facility]) Body height 66 [in_us] 66 [in_us] eCW1 ([facility]) Body weight Measured 196.8 [lb_av] 196.8 [lb_av ] eCW1 ([facility]) Respiratory rate 16 /min 16 /min MEDENT ( [facility]) Heart rate 88 /min 88 /min MEDENT ([facility]) Diastolic blood pressure 60 mm[Hg] 60 mm[Hg] CLAUDINE ([facility]) Systolic blood pressure 110 mm[Hg] 110 mm[Hg] Kvng YIP ([facility])
[2020-04-18] MEDS ORDERED: LACTATED RINGER'S 1000 ML IV STA (05:50)
[2020-04-18] MEDS ORDERED: LR 1,000 ML IV SCH ×3 (05:50→09:00)
[2020-04-18] MEDS ORDERED: BICITRA 30ML SOLN UDC PO ONE (06:00)
[2020-04-18] MEDS ORDERED: ceFAZolin SOD 2 GM in IV 1 EA IV ONE (06:00)
[2020-04-18 06:51] LABS: HEMATOCRIT 34.8 % (36.0-47.0); HEMOGLOBIN 10.8 g/dl (12.0-15.5); MEAN CORPUSCULAR HEMOGLOBIN 24.8 pg (27.0-33.0); MEAN CORPUSCULAR VOLUME 79.8 fl (80.0-96.0); PLATELET COUNT, AUTOMATED 217 10^3/uL (150-450); RED BLOOD COUNT 4.36 10^6/uL (4.00-5.40); WHITE BLOOD COUNT 11.4 10^3/uL (4.0-10.0)
[2020-04-18] MEDS ORDERED: ePHEDrine SULFATE 25 MG/5 ML(5MG/ML) SYRINGE As Ordered ONE (08:14)
[2020-04-18] MEDS ORDERED: PHENYLephrine 500MCG 5ML (100MCG/ML) SYRINGE As Ordered ONE (08:14)
[2020-04-18] MEDS ORDERED: ONDANSETRON 4MG/2ML VIAL As Ordered ONE (08:14)
[2020-04-18] MEDS ORDERED: OXYTOCIN 30 UNITS IN 0.9% NaCl 500ML IV BAG (J2590) As Ordered ONE ×2 (08:14→09:11)
[2020-04-18] MEDS ORDERED: MORPHINE PRES-FREE INJ 10 MG/10 ML VIAL (J2274) As Ordered ONE (08:14)
[2020-04-18] MEDS ORDERED: dexameTHASONE 4 MG/ML 1ML VIAL (J1100 PER 1MG) As Ordered ONE (08:14)
[2020-04-18] MEDS ORDERED: KETOROLAC 60MG 2ML VIAL As Ordered ONE (08:14)
[2020-04-18] MEDS ORDERED: OXYTOCIN DRIP 30 UNITS in IV 1 EA IV SCH (08:41)
[2020-04-18] MEDS ORDERED: RHOGAM 300 MCG (1500 IU) INJ (J2790) IM SCH (08:45)
[2020-04-18] MEDS ORDERED: SIMETHICONE 80MG CHEW TAB PO PRN (08:45)
[2020-04-18] MEDS ORDERED: MEASLES,MUMPS,RUBELLA VACCINE INJ (MMR-II) (90707) SC SCH (08:45)
[2020-04-18] MEDS ORDERED: PERCOCET 5MG/325MG TAB PO PRN ×3 (08:45→09:00)
[2020-04-18] MEDS ORDERED: ONDANSETRON 4MG/2ML VIAL IV PRN ×3 (08:45→09:15)
--- NOTE | 2020-04-18 08:53 | ROOPDOC ---
[facility] Report Of Operation Report of Operation DATE OF PROCEDURE: 04/18/20 Report of operation Preoperative diagnosis: 38 weeks, gestational hypertension, prior section Postoperative diagnosis: same Procedure: Repeat low transverse section and bilateral tubal ligation. Surgeon: Abhilash Jarrell M.D. Asst.: Shirley Lindsey CNM EBL: 500 ml. Urine output: 100 mL's. Findings: 6 lbs. 15 oz. male , Apgars 9 and 9 g normal uterus, fallopian tubes, ovaries. Operative summary: Patient taken to the operating room where spinal anesthesia was induced. She was prepped draped sterile fashion in the supine position. A Delgadillo catheter was placed. A Pfannenstiel skin incision was made with scalpel. Fascia was incised and extended bilaterally. The peritoneal cavity was entered. A Mobius retractor was placed. A bladder flap was created. A curvilinear incision was made in lower uterine segment until Clear fluid was noted. The incision was extended manually. The infant was delivered from the vertex position without difficulty. Cord was double clamped and cut. The was handed to awaiting nurses. The placenta was expressed. Uterus was closed with O-Vicryl in a running locked fashion. A second imbricating layer of Vicryl was placed. Attention was turned to the fallopian tubes. A [place] clamp was used to grasp the fallopian tubes at the midportion.. A window was created in the broad ligament free tie of 2-0 chromic was placed around the segment of tube on either side of the clamp. A Segment of tube was excised bilaterally and sent to pathology. Peritoneum was closed with 2-0 Vicryl a running fashion. Fascia was closed with 0 Vicryl in running fashion. Skin was closed 4-0 Monocryl subcuticular sutures. Sponge, instrument and needle counts were correct. Shirley Lindsey CNM, assisted with all aspects of the procedure. She helped each layer of the incision and deliver the fetus. ABHILASH JARRELL MD Apr 18, 2020 08:53
[2020-04-18] MEDS ORDERED: METOCLOPRAMIDE INJ 10MG/2ML VIAL (J2765 PER 1) IV PRN ×2 (09:00→09:15)
[2020-04-18] MEDS: PRENATAL VITAMINS CHEWABLE TABLET PO SCH (09:00)
[2020-04-18] MEDS ORDERED: fentaNYL 100 MCG/2 ML INJECTION (J3010) IV PRN (09:00)
[2020-04-18] MEDS ORDERED: NALOXONE INJ 0.4MG/1ML VIAL (J2310 PER 1MG) IV PRN ×2 (09:15)
[2020-04-18] MEDS ORDERED: NALBUPHINE HCL 10 MG/ML AMP (J2300) IV PRN (09:15)
[2020-04-18] MEDS: KETOROLAC 30 MG/ML 1ML VIAL IV SCH ×2 (14:50→20:38)
[2020-04-18] MEDS: diphenhydrAMINE 50MG/ML VIAL (J1200) IV PRN (23:56)
[2020-04-19 02:00] VITALS: BP 133/79
[2020-04-19] MEDS: KETOROLAC 30 MG/ML 1ML VIAL IV SCH (02:23)
[2020-04-19] MEDS: diphenhydrAMINE 50MG/ML VIAL (J1200) IV PRN (04:17)
[2020-04-19 06:00] VITALS: BP 119/69
[2020-04-19 06:58] LABS: HEMATOCRIT 30.8 % (36.0-47.0); HEMOGLOBIN 9.4 g/dl (12.0-15.5); MEAN CORPUSCULAR HEMOGLOBIN 24.8 pg (27.0-33.0); MEAN CORPUSCULAR HGB CONC 30.5 g/dl (32.0-36.5); MEAN CORPUSCULAR VOLUME 81.3 fl (80.0-96.0); PLATELET COUNT, AUTOMATED 180 10^3/uL (150-450); RED BLOOD COUNT 3.79 10^6/uL (4.00-5.40)
[2020-04-19] MEDS: IBUPROFEN 800 MG TAB PO SCH ×3 (08:14→23:48)
[2020-04-19] MEDS: PRENATAL VITAMINS CHEWABLE TABLET PO SCH (08:14)
--- NOTE | 2020-04-19 09:01 | IPNPDOC ---
Progress Note Date of Service: Apr 19, 2020 Day#: 1 Progress Note SUBJECT: Laquita is a 29-year-old female who is now a who had a repeat section yesterday with a bilateral tubal ligation. She has been ambulating, voiding spontaneously without issue and tolerating regular diet. Breast feeding without issue. She has no complaints. Migraine prophylaxis ordered and Effexor XR ordered and instructed to take it in the am as it can cause insomnia. OBJECTIVE: PHYSICAL EXAMINATION ON DISCHARGE: VITAL SIGNS: Please see below. GENERAL: No apparent distress. Alert and oriented. Speech is clear. RESPIRATORY EXAMINATION: Regular rate with no use of accessory muscles. ABDOMINAL EXAMINATION: Fundus is firm. Incision is covered with dressing without erythema. EXTREMITIES: 1+ pitting edema. SKIN: warm, dry without rash or lesion. PSYCHIATRIC EXAMINATION: Mood is appropriate and happy. Affect is normal. ASSESSMENT: Day 1 postoperative PLAN: 1. Continue supportive nursing care and pain management. 2. Patient may shower. 3. Anticipate discharge to home tomorrow. VS, I&O, 24H, Fishbone Vital Signs/I&O Vital Signs Date Time Temp Pulse Resp B/P (MAP) Pulse Ox O2 Delivery O2 Flow Rate FiO2 04/19/20 06:00 97.4 93 16 119/69 (86) 98 Room Air I&O- Last 24 Hours up to 6 AM 04/19/20 06:00 Intake Total 2452 ml Output Total 2100 ml Balance 352 ml Laboratory Data 24H LABS Laboratory Tests 2 04/19/20 06:45: Nucleated Red Blood Cells % (auto) 0.0 CBC/BMP Laboratory Tests 04/19/20 06:45 ZAYRA ADRIAN CNM Apr 19, 2020 09:01
[2020-04-19] MEDS ORDERED: VENL37.598 PO (09:09)
[2020-04-19] MEDS: VENLAFAXINE **XR** 37.5 MG CAPSULE PO SCH (09:59)
[2020-04-19] MEDS: VENLAFAXINE **XR** 75MG CAPSULE PO SCH (09:59)
[2020-04-19 10:00] VITALS: BP 129/77
[2020-04-19 13:59] VITALS: BP 140/91
[2020-04-19 18:00] VITALS: BP 135/72
[2020-04-19] MEDS ORDERED: MAGNESIUM OXIDE 400MG TAB (MAG-OX) PO SCH (21:00)
[2020-04-19] MEDS ORDERED: CO-ENZYME Q10 50 MG CAP PO SCH (21:00)
[2020-04-19] MEDS ORDERED: PILL CUTTER 1 EACH XX PRN (21:30)
[2020-04-19 22:00] VITALS: BP 140/96
[2020-04-20 02:00] VITALS: BP 138/77
[2020-04-20 05:53] VITALS: BP 131/75
[2020-04-20] MEDS ORDERED: OXYC1TAB23 PO (06:33)
[2020-04-20] MEDS ORDERED: IBUP80TA PO (06:33)
--- NOTE | 2020-04-20 06:40 | DS.PDOC ---
Discharge Summary General Date of Admission Apr 18, 2020 at 05:31 Date of Discharge 2020 Attending Physician: ABHILASH JARRELL MD Discharge Summary PROCEDURES PERFORMED DURING STAY: and TL. ADMITTING DIAGNOSES: 1. 38 weeks, gestational hypertension, prior . DISCHARGE DIAGNOSES: 1. same. COMPLICATIONS/CHIEF COMPLAINT: Previous Satisfied Fertility. HISTORY OF PRESENT ILLNESS: 29 yo at 38 0/7 weeks gestation presents for a repeat and BTL. The indication for delivery < 39 weeks is gestational hypertension. . HOSPITAL COURSE: On 04/18/2020 the patient had a repeat and BTL without complication. Her post-operative course was unremarkable. She had adequate return of bladder and bowel function. She was stable for discharge on POD#2. . DISCHARGE MEDICATIONS: Please see below. ALLERGIES: Please see below. PHYSICAL EXAMINATION ON DISCHARGE: VITAL SIGNS: Please see below. GENERAL: NAD HEENT: WNL NECK: WNL CARDIOVASCULAR EXAMINATION: RRR RESPIRATORY EXAMINATION: CTA ABDOMINAL EXAMINATION: NT, dressing C/D/I EXTREMITIES: NT SKIN: WNL LABORATORY DATA: Please see below. ACTIVITY: As tolerated. DIET: reg DISCHARGE PLAN: home DISPOSITION: . DISCHARGE INSTRUCTIONS: 1. D/C home 2. instructions reviewed. DISCHARGE CONDITION: Stable. TIME SPENT ON DISCHARGE: Greater than 10 minutes. Vital Signs/I&Os Vital Signs Date Time Temp Pulse Resp B/P (MAP) Pulse Ox O2 Delivery O2 Flow Rate FiO2 04/20/20 05:53 97.2 85 17 131/75 (93) 100 Room Air Laboratory Data Labs 24H Laboratory Tests 2 04/19/20 06:45: Nucleated Red Blood Cells % (auto) 0.0 CBC/BMP Laboratory Tests 04/19/20 06:45 Discharge Medications Scheduled Cholecalciferol (Vitamin D3) (Vitamin D3) 1,000 Unit Tablet, Unknown Dose PO DAILY, (Reported) Ibuprofen (Ibuprofen) 800 Mg Tablet, 800 MG PO Q8H Magnesium Oxide (Magnesium) 250 Mg Tablet, Unknown Dose PO DAILY, (Reported) No.137/Iron/Folic Acd ( Vitamin Tablet) 1 Tab Tab, 1 TAB PO DAILY, (Reported) Riboflavin (Vitamin B2) (Vitamin B-2) 25 Mg Tablet, Unknown Dose PO DAILY, (Reported) Ubidecarenone (Coenzyme Q10) 100 Mg Tablet, 100 MG PO DAILY, (Reported) Venlafaxine HCl (Effexor Xr) 150 Mg Cap, 150 MG PO DAILY, (Reported) Venlafaxine HCl (Venlafaxine HCl ER) 37.5 Mg Cap.er.24h, 37.5 MG PO DAILY, (Reported) take with 150mg capsule Scheduled PRN Oxycodone HCl/Acetaminophen (Oxycodone-Acetaminophen 5-325) 1 Each Tablet, 1 TAB PO TIDP PRN for pain Allergies Coded Allergies: Penicillins (Verified Allergy, Intermediate, RASH, 04/04/20) Sulfa (Sulfonamide Antibiotics) (Verified Allergy, Intermediate, rash, 04/04) latex (Verified Allergy, Intermediate, itchy lips, 04/04/20) ABHILASH JARRELL MD Apr 20, 2020 06:40
[2020-04-20] MEDS: IBUPROFEN 800 MG TAB PO SCH (08:08)
[2020-04-20] MEDS: VENLAFAXINE **XR** 75MG CAPSULE PO SCH (08:08)
[2020-04-20] MEDS: PRENATAL VITAMINS CHEWABLE TABLET PO SCH (08:08)
[2020-04-20] MEDS: VENLAFAXINE **XR** 37.5 MG CAPSULE PO SCH (08:08)
== END 2020-04-20 13:30 | disposition home or self-care (01) | DRG 540 ==
LOC: M LDI 05:31 → M OBS 10:30
PROVIDERS: ADMIT Specialist; ATTEND Specialist
PROC: 0UB70ZZ Excision of Bilateral Fallopian Tubes, Open Approach (ICD-10-PCS; 2020-04-18)
PROC: 10D00Z1 Extraction of Products of Conception, Low, Open Approach (ICD-10-PCS; principal; 2020-04-18 07:30)
DX: O34.211 Maternal care for low transverse scar from previous cesarean delivery (principal); Z88.0 Allergy status to penicillin; Z37.0 Single live birth; Z3A.38 38 weeks gestation of pregnancy; Z30.2 Encounter for sterilization; O13.4 Gestational [pregnancy-induced] hypertension without significant proteinuria, complicating childbirth; Z88.2 Allergy status to sulfonamides; Z91.040 Latex allergy status

== ENCOUNTER → 2020-06-08 | Outpatient (CLI) | payer OTHER, BC ==
[~2020-06-08] MED LIST changes: +IBUP80TA PO; +VENL37.598 PO
[2020-06-08 17:08] LABS: BASO % 0.3 % (0.0-1.0); EOS % 0.1 % (0.0-3.0); HEMATOCRIT 40.6 % (36.0-47.0); HEMOGLOBIN 12.2 g/dl (12.0-15.5); LYMPH # 2.2 10^3/uL (1.5-5.0); MEAN CORPUSCULAR HEMOGLOBIN 24.8 pg (27.0-33.0); MEAN CORPUSCULAR VOLUME 82.7 fl (80.0-96.0); MONO # 0.5 10^3/uL (0.0-0.8); MONO % 5.8 % (2.0-8.0); NEUTROPHILS # 5.8 10^3/uL (1.5-8.5); NEUTROPHILS % 67.3 % (36.0-66.0); PLATELET COUNT, AUTOMATED 336 10^3/uL (150-450); RED BLOOD COUNT 4.91 10^6/uL (4.00-5.40); WHITE BLOOD COUNT 8.6 10^3/uL (4.0-10.0)
[2020-06-08 20:40] LABS: ALBUMIN 3.8 GM/DL (3.2-5.2); ALT/SGPT 37 U/L (12-78); BILIRUBIN,TOTAL 0.4 MG/DL (0.2-1.0); BLOOD UREA NITROGEN 14 MG/DL (7-18); CALCIUM LEVEL 9.9 MG/DL (8.5-10.1); CARBON DIOXIDE LEVEL 24 MEQ/L (21-32); CHLORIDE LEVEL 106 MEQ/L (98-107); CREATININE FOR GFR 0.84 MG/DL (0.55-1.30); FERRITIN 38 NG/ML (8-252); GLOMERULAR FILTRATION RATE > 60.0 (>60); GLUCOSE, FASTING 85 MG/DL (70-100); IRON (FE) 39 UG/DL (50-170); PERCENT SATURATION 10.5 % (13.2-45.0); POTASSIUM SERUM 4.5 MEQ/L (3.5-5.1); SODIUM LEVEL 139 MEQ/L (136-145); TOTAL IRON BINDING CAPACITY 372 UG/DL (250-450); TOTAL PROTEIN 7.4 GM/DL (6.4-8.2)
== END ==
LOC: M WUC 13:28
PROVIDERS: ATTEND Physician Assistant
DX: Z00.00 Encounter for general adult medical examination without abnormal findings (principal)

== ENCOUNTER → 2020-12-23 | Outpatient (REF) | payer OTHER, BC | LOC: M LAB REF 11:05 | PROVIDERS: ATTEND Physician Assistant | DX: R05.9 Cough, unspecified (principal) ==

== ENCOUNTER → 2021-01-02 | Outpatient (REF) | payer OTHER, BC | LOC: M LAB REF 17:01 | PROVIDERS: ATTEND Physician Assistant | DX: J01.90 Acute sinusitis, unspecified (principal) ==

== ENCOUNTER → 2021-02-28 | Outpatient (CLI) | payer OTHER, BC ==
[2021-02-28 12:44] LABS: HEMATOCRIT 44.4 % (36.0-47.0); HEMOGLOBIN 13.9 g/dl (12.0-15.5); RED BLOOD COUNT 4.93 10^6/uL (4.00-5.40); WHITE BLOOD COUNT 7.3 10^3/uL (4.0-10.0)
[2021-02-28 12:45] LABS: BASO % 0.4 % (0.0-1.0); EOS % 0.1 % (0.0-3.0); LYMPH # 2.2 10^3/uL (1.5-5.0); LYMPH % 30.1 % (24.0-44.0); MEAN CORPUSCULAR HEMOGLOBIN 28.2 pg (27.0-33.0); MEAN CORPUSCULAR HGB CONC 31.3 g/dl (32.0-36.5); MEAN CORPUSCULAR VOLUME 90.1 fl (80.0-96.0); MONO # 0.4 10^3/uL (0.0-0.8); MONO % 5.7 % (2.0-8.0); NEUTROPHILS # 4.7 10^3/uL (1.5-8.5); NEUTROPHILS % 63.4 % (36.0-66.0); PLATELET COUNT, AUTOMATED 290 10^3/uL (150-450)
[2021-02-28 13:21] LABS: ALBUMIN 3.5 GM/DL (3.2-5.2); ALT/SGPT 21 U/L (12-78); BILIRUBIN,TOTAL 0.5 MG/DL (0.2-1.0); BLOOD UREA NITROGEN 14 MG/DL (7-18); CALCIUM LEVEL 9.1 MG/DL (8.5-10.1); CARBON DIOXIDE LEVEL 26 MEQ/L (21-32); CHLORIDE LEVEL 109 MEQ/L (98-107); CREATININE FOR GFR 0.78 MG/DL (0.55-1.30); FERRITIN 62 NG/ML (8-252); FREE T4 0.84 NG/DL (0.76-1.46); GLOMERULAR FILTRATION RATE > 60.0 (>60); GLUCOSE, FASTING 91 MG/DL (70-100); IRON (FE) 125 UG/DL (50-170); PERCENT SATURATION 34.1 % (13.2-45.0); POTASSIUM SERUM 4.3 MEQ/L (3.5-5.1); SODIUM LEVEL 140 MEQ/L (136-145); TOTAL IRON BINDING CAPACITY 367 UG/DL (250-450); TOTAL PROTEIN 7.2 GM/DL (6.4-8.2)
[2021-02-28 13:23] LABS: TOTAL 25(OH) VITAMIN D 46.2 NG/ML (30.0-100.0)
[2021-02-28 13:24] LABS: FOLATE 16.9 NG/ML; VITAMIN B12 LEVEL 349 PG/ML
[2021-03-01 12:07] LABS: UNITSIGA FOR GLIADIN IGA 3 units (0-19); UNITSIGG FOR GLIADIN IGG 2 units (0-19)
[2021-03-01 18:17] LABS: ANA (HEP2) Negative (.)
== END ==
LOC: M WUC 09:13
PROVIDERS: ATTEND Physician Assistant
DX: R53.83 Other fatigue (principal); Z83.79 Family history of other diseases of the digestive system

== ENCOUNTER → 2021-08-26 | Outpatient (REF) | payer BC, OTHER ==
[~2021-08-26] MED LIST changes: -D31000TA2 PO; +VITA100093 PO
== END ==
LOC: M WUC 18:10
PROVIDERS: ATTEND Physician Assistant
DX: J01.90 Acute sinusitis, unspecified (principal); J02.9 Acute pharyngitis, unspecified

== ENCOUNTER → 2022-04-24 | Outpatient (REF) | payer BC, OTHER ==
[~2022-04-24] MED LIST changes: -LABE300T2 PO; +LABE300T55 PO
[2022-04-24 17:34] LABS: APPEARANCE, URINE CLEAR (CLEAR); BACTERIA, URINE AUTO 1+ (NEGATIVE); BILIRUBIN, URINE AUTO NEGATIVE (NEGATIVE); BLOOD, URINE BLOOD 1+ (NEGATIVE); COLOR, URINE YELLOW (YELLOW); GLUCOSE, URINE (UA) AUTO NEGATIVE (NEGATIVE); KETONE, URINE AUTO NEGATIVE (NEGATIVE); LEUKOCYTE ESTERASE, URINE AUTO NEGATIVE (NEGATIVE); MUCUS, URINE SMALL (NEGATIVE); NITRITE, URINE AUTO NEGATIVE (NEGATIVE); PROTEIN, URINE AUTO NEGATIVE (NEGATIVE); RBC, URINE AUTO 1 /HPF (0-3); SPECIFIC GRAVITY URINE AUTO 1.013 (1.002-1.035); SQUAMOUS EPITHELIAL CELL UR AU 3 /HPF (0-6); UROBILINOGEN, URINE AUTO 0.2 mg/dL (0.0-2.0); WBC, URINE AUTO 1 /HPF (0-3)
== END ==
LOC: M SMT 16:49
PROVIDERS: ATTEND Nurse Practitioner Women's Health
DX: R31.0 Gross hematuria (principal)

== ENCOUNTER → 2022-05-10 | Outpatient (CLI) | payer BC, OTHER ==
[~2022-05-10] MED LIST changes: +ISOVUE-370 76% 100ML VIAL As Ordered ONE
== END ==
LOC: M RAD 09:36
PROVIDERS: ATTEND Nurse Practitioner Women's Health
DX: R31.9 Hematuria, unspecified (principal)

== ENCOUNTER → 2022-05-11 | Outpatient (REF) | payer BC, OTHER ==
[~2022-05-11] MED LIST changes: -ISOVUE-370 76% 100ML VIAL As Ordered ONE
== END ==
LOC: M SMT 17:16
PROVIDERS: ATTEND Urology
DX: R31.0 Gross hematuria (principal)

== ENCOUNTER → 2022-07-03 | Outpatient (REF) | payer OTHER | LOC: M SFHCWAGY 13:20 | PROVIDERS: ATTEND Specialist | DX: Z01.419 Encounter for gynecological examination (general) (routine) without abnormal findings (principal) ==

== ENCOUNTER → 2023-04-18 | Outpatient (CLI) | payer BC, OTHER ==
[~2023-04-18] MED LIST changes: -EFFE150C2 PO; +EFFE150C3 PO; +LABE300T28 PO; -LABE300T55 PO; -NITR1CAP27 PO; +NITR50CA51 PO
== END ==
LOC: M WHC 09:36
PROVIDERS: ATTEND Surgery
DX: R10.11 Right upper quadrant pain (principal)

== ENCOUNTER → 2023-04-19 | Outpatient (REF) | payer BC, OTHER ==
[2023-04-19 20:02] LABS: RSV AMPLIFICATION NEGATIVE (NEGATIVE)
== END ==
LOC: M LAB REF 16:05
PROVIDERS: ATTEND Physician Assistant
DX: J06.9 Acute upper respiratory infection, unspecified (principal)

== ENCOUNTER 2023-07-16 12:55 | Day surgery (SDC) | payer BC ==
[~2023-07-16] VITALS: Ht 162.6 cm; Wt 67.6 kg
[~2023-07-16 12:55] MED LIST changes: +ACETAMINOPHEN 1000MG 100ML IV BAG As Ordered ONE; +BACL10TA2 PO; +CHOL12508 PO; +CRAN400C PO; +D-MA50PO PO; +INDOCYANINE GREEN 25MG VIAL (IC-GREEN) As Ordered ONE; +LIDOCAINE 2% 100MG/5ML SDV (FOR ANES.) As Ordered ONE; +MIDAZOLAM INJ 2MG/2ML VIAL As Ordered ONE; +ONDANSETRON 4MG 2ML VIAL As Ordered ONE; +PROB250C PO; +RIZA10TA2 PO; +ROCURONIUM BROMIDE 50MG/5ML VIAL As Ordered ONE; +TOPI-21 PO; +TOPI200T7 PO; +dexmedeTOMIDine (4MCG/ML)200MCG/50ML BTL (PRECEDEX) As Ordered ONE; +fentaNYL 100 MCG/2 ML INJECTION As Ordered ONE; +propofoL 200 MG/20 ML VIAL As Ordered ONE
[2023-07-16] MEDS ORDERED: LR 1,000 ML IV SCH ×2 (13:05→15:15)
[2023-07-16 13:25] LABS: HEMATOCRIT 43.8 % (36.0-47.0); HEMOGLOBIN 14.5 g/dl (12.0-15.5); MEAN CORPUSCULAR HEMOGLOBIN 28.8 pg (27.0-33.0); MEAN CORPUSCULAR HGB CONC 33.1 g/dl (32.0-36.5); MEAN CORPUSCULAR VOLUME 86.9 fl (80.0-96.0); PLATELET COUNT, AUTOMATED 271 10^3/uL (150-450); RED BLOOD COUNT 5.04 10^6/uL (4.00-5.40)
[2023-07-16] MEDS: INDOCYANINE GREEN 25MG VIAL (IC-GREEN) IV ONE (14:10)
[2023-07-16] MEDS: ceFAZolin SOD 2 GM in IV 1 EA IV ONE (14:18)
[2023-07-16] MEDS ORDERED: HYDR-3713 PO (14:34)
[2023-07-16] MEDS: HEPARIN SOD (PORCINE) 5000UNITS/ML 1ML VIAL/SYRINGE SQ ONE (14:41)
[2023-07-16] MEDS ORDERED: KETOROLAC 60MG 2ML VIAL As Ordered ONE (14:43)
[2023-07-16] MEDS ORDERED: SUGAMMADEX SODIUM 500 MG/5 ML VIAL (BRIDION) As Ordered ONE (14:43)
[2023-07-16] MEDS ORDERED: GLYCOPYRROLATE INJ 0.2 MG/ML 2 ML VIAL As Ordered ONE (14:49)
[2023-07-16] MEDS ORDERED: ePHEDrine SULFATE 25 MG/5 ML(5MG/ML) SYRINGE As Ordered ONE (15:05)
[2023-07-16] MEDS ORDERED: PHENYLephrine 500MCG 5ML (100MCG/ML) SYRINGE As Ordered ONE (15:05)
[2023-07-16] MEDS ORDERED: ONDANSETRON 4MG 2ML VIAL IV PRN (15:15)
[2023-07-16] MEDS ORDERED: HYDROMORPHONE HCL 0.5 MG/ 0.5 ML SYRINGE IV PRN (15:15)
[2023-07-16] MEDS ORDERED: oxyCODONE 5MG TAB PO PRN (15:15)
[2023-07-16] MEDS: traMADol 50 MG TAB PO ONE (15:50)
[2023-07-16] MEDS: fentaNYL 100 MCG/2 ML INJECTION IV PRN (15:55)
[2023-07-16 16:42] VITALS: BP 110/70; TEMP 97.6; O2SAT 100
== END 2023-07-16 16:58 | disposition home or self-care (01) ==
LOC: M SDC 12:55
PROVIDERS: ATTEND Surgery
DX: K80.12 Calculus of gallbladder with acute and chronic cholecystitis without obstruction (principal); Z91.040 Latex allergy status; Z88.0 Allergy status to penicillin; Z88.2 Allergy status to sulfonamides; Z79.899 Other long term (current) drug therapy
CPT/HCPCS: 36415; 47563; 85027; 88304; J0131; J0665; J0690; J1100; J1885; J2250; J2371; J2405; J3010; Q9968; S2900

== ENCOUNTER 2023-08-01 11:15 | Day surgery (SDC) | payer BC ==
[~2023-08-01] VITALS: Ht 165.1 cm; Wt 67.0 kg
[~2023-08-01 11:15] MED LIST changes: -ACETAMINOPHEN 1000MG 100ML IV BAG As Ordered ONE; -CRAN400C PO; +CRANBERRY400 MG PO; +HYDR-3713 PO; -INDOCYANINE GREEN 25MG VIAL (IC-GREEN) As Ordered ONE; -LIDOCAINE 2% 100MG/5ML SDV (FOR ANES.) As Ordered ONE; -MIDAZOLAM INJ 2MG/2ML VIAL As Ordered ONE; -ONDANSETRON 4MG 2ML VIAL As Ordered ONE; -ROCURONIUM BROMIDE 50MG/5ML VIAL As Ordered ONE; -dexmedeTOMIDine (4MCG/ML)200MCG/50ML BTL (PRECEDEX) As Ordered ONE; -propofoL 200 MG/20 ML VIAL As Ordered ONE
[2023-08-01] MEDS: NS 1,000 ML IV ONE (12:43)
[2023-08-01 13:34] VITALS: TEMP 97.9
[2023-08-01 13:46] VITALS: BP 98/56; O2SAT 99
== END 2023-08-01 13:56 | disposition home or self-care (01) ==
LOC: M OPP 11:15
PROVIDERS: ATTEND Internal Medicine Gastroenterology
DX: K63.89 Other specified diseases of intestine (principal); Q43.8 Other specified congenital malformations of intestine; R10.31 Right lower quadrant pain; R10.11 Right upper quadrant pain; Z79.1 Long term (current) use of non-steroidal anti-inflammatories (NSAID); Z79.2 Long term (current) use of antibiotics; Z79.891 Long term (current) use of opiate analgesic; Z79.899 Other long term (current) drug therapy; Z88.0 Allergy status to penicillin; Z88.8 Allergy status to other drugs, medicaments and biological substances; Z91.040 Latex allergy status
CPT/HCPCS: 45380; 88305; J3010

== ENCOUNTER → 2023-08-27 | Outpatient (REF) | payer OTHER ==
[~2023-08-27] MED LIST changes: -fentaNYL 100 MCG/2 ML INJECTION As Ordered ONE
[2023-08-27 16:56] LABS: AMORPHOUS SEDIMENT SMALL (NEGATIVE); APPEARANCE, URINE CLOUDY (CLEAR); BACTERIA, URINE AUTO 1+ (NEGATIVE); BILIRUBIN, URINE AUTO NEGATIVE (NEGATIVE); BLOOD, URINE BLOOD NEGATIVE (NEGATIVE); COLOR, URINE YELLOW (YELLOW); GLUCOSE, URINE (UA) AUTO NEGATIVE (NEGATIVE); KETONE, URINE AUTO NEGATIVE (NEGATIVE); LEUKOCYTE ESTERASE, URINE AUTO NEGATIVE (NEGATIVE); NITRITE, URINE AUTO NEGATIVE (NEGATIVE); PROTEIN, URINE AUTO NEGATIVE (NEGATIVE); RBC, URINE AUTO 0 /HPF (0-3); SPECIFIC GRAVITY URINE AUTO 1.012 (1.002-1.035); SQUAMOUS EPITHELIAL CELL UR AU 2 /HPF (0-6); UROBILINOGEN, URINE AUTO 0.2 mg/dL (0.0-2.0); WBC, URINE AUTO 0 /HPF (0-3)
== END ==
LOC: M LABWUC 16:10
PROVIDERS: ATTEND Physician Assistant Medical
DX: R39.9 Unspecified symptoms and signs involving the genitourinary system (principal)

== ENCOUNTER → 2023-09-03 | Outpatient (CLI) | payer OTHER ==
[2023-09-03 11:44] LABS: HEMATOCRIT 40.9 % (36.0-47.0); HEMOGLOBIN 13.4 g/dl (12.0-15.5); MEAN CORPUSCULAR HEMOGLOBIN 29.3 pg (27.0-33.0); MEAN CORPUSCULAR HGB CONC 32.8 g/dl (32.0-36.5); MEAN CORPUSCULAR VOLUME 89.5 fl (80.0-96.0); PLATELET COUNT, AUTOMATED 277 10^3/uL (150-450); RED BLOOD COUNT 4.57 10^6/uL (4.00-5.40); WHITE BLOOD COUNT 5.6 10^3/uL (4.0-10.0)
[2023-09-03 11:53] LABS: THYROID STIMULATING HORMONE 2.869 uIU/ML (0.55-4.78)
[2023-09-03 11:54] LABS: FREE T4 0.94 NG/DL (0.89-1.76); IRON (FE) 73 UG/DL (50-170)
[2023-09-03 11:55] LABS: PERCENT SATURATION 18.9 % (13.2-45.0); TOTAL IRON BINDING CAPACITY 387 UG/DL (250-425)
[2023-09-03 11:56] LABS: ALBUMIN 3.6 G/DL (3.2-5.2); ALKALINE PHOSPHATASE 84 U/L (46-116); ALT/SGPT 14 U/L (7.0-40); AST/SGOT < 8 U/L (<34); BILIRUBIN,TOTAL 0.5 MG/DL (0.3-1.2); BLOOD UREA NITROGEN 18 MG/DL (9-23); CALCIUM LEVEL 9.2 MG/DL (8.5-10.1); CARBON DIOXIDE LEVEL 24 MMOL/L (20-31); CHLORIDE LEVEL 111 MMOL/L (98-107); CHOLESTEROL LEVEL 186 MG/DL (<200); CHOLESTEROL RISK RATIO 3.12 (<5); CREATININE FOR GFR 0.75 MG/DL (0.55-1.30); GLOMERULAR FILTRATION RATE > 60.0 (>60); GLUCOSE, FASTING 101 MG/DL (60-100); HDL CHOLESTEROL 59.5 MG/DL (>40); LDL CHOLESTEROL 111.3 MG/DL (<100); NON-HDL-C 126.5 MG/DL; POTASSIUM SERUM 4.1 MMOL/L (3.5-5.1); SODIUM LEVEL 140 MMOL/L (136-145); TOTAL PROTEIN 6.6 G/DL (5.7-8.2); TRIGLYCERIDES LEVEL 76 MG/DL (<150)
== END ==
LOC: M WUC 09:06
PROVIDERS: ATTEND Physician Assistant Medical
DX: R63.5 Abnormal weight gain (principal); E78.00 Pure hypercholesterolemia, unspecified; G43.709 Chronic migraine without aura, not intractable, without status migrainosus; D50.8 Other iron deficiency anemias

== ENCOUNTER → 2023-10-25 | Outpatient (REF) | payer BC ==
[2023-10-30 13:11] LABS: HPV APTIMA Not Detected (Not Detected)
== END ==
LOC: M PLALAB 13:11
PROVIDERS: ATTEND Specialist
DX: Z01.419 Encounter for gynecological examination (general) (routine) without abnormal findings (principal)

== ENCOUNTER 2024-07-07 10:08 | Day surgery (SDC) | payer OTHER ==
[~2024-07-07] VITALS: Ht 162.6 cm; Wt 68.9 kg
[~2024-07-07 10:08] MED LIST changes: +GREE1TAB PO; +TOPI-14 PO; -TOPI200T7 PO
[2024-07-07] MEDS ORDERED: fentaNYL 100 MCG/2 ML INJECTION As Ordered ONE (12:09)
[2024-07-07] MEDS ORDERED: propofoL 200 MG/20 ML VIAL As Ordered ONE (12:09)
[2024-07-07 12:31] VITALS: BP 111/71; O2SAT 100
== END 2024-07-07 12:41 | disposition home or self-care (01) ==
LOC: M OPP 10:08
PROVIDERS: ATTEND Internal Medicine Gastroenterology
DX: K29.50 Unspecified chronic gastritis without bleeding (principal); R10.11 Right upper quadrant pain; G43.909 Migraine, unspecified, not intractable, without status migrainosus; Z79.899 Other long term (current) drug therapy; Z88.0 Allergy status to penicillin; Z88.2 Allergy status to sulfonamides; Z91.040 Latex allergy status
CPT/HCPCS: 43239; 88305; J3010